=== PATIENT | male | born 1985 | race Caucasian/White ===

== ENCOUNTER 2021-07-16 12:38 | Emergency (ER) | payer OTHER, SELFPAY ==
--- NOTE | ~2021-07-16 | XR_ITS ---
EXAMINATION: XR ANKLE, LEFT CLINICAL INFORMATION: Twisting injury COMPARISON: None TECHNIQUE: AP, lateral, and mortise views of the left ankle. FINDINGS: No acute fracture or dislocation of the left ankle is identified. There is a large amount soft tissue swelling seen about the dorsal lateral aspect of the tarsal bones. Ankle mortise appears intact. XR/XR ankle LT 2V IMPRESSION: Soft tissue swelling without underlying significant bony abnormality of the left ankle.
--- NOTE | ~2021-07-16 | XR_ITS ---
EXAMINATION: XR FOOT, LEFT CLINICAL INFORMATION: Fell on trampoline COMPARISON: None TECHNIQUE: AP, lateral, and oblique views of the left foot. FINDINGS: There is a large amount soft tissue swelling seen about the dorsum of the tarsal bones. No acute fracture or dislocation is evident. Joint spaces are maintained. XR/XR foot LT min 3V IMPRESSION: Large amount of soft tissue swelling without underlying acute fracture appreciated.
[2021-07-16 12:52] VITALS: BP 140/99; PULSE 137; RESP 16; TEMP 37.4; O2SAT 96; BMI 29.0
--- NOTE | 2021-07-16 13:04 | ECG_ITS ---
Test Reason : tachycardia Blood Pressure : / mmHG Vent. Rate : 120 BPM Atrial Rate : 120 BPM P-R Int : 122 ms QRS Dur : 080 ms QT Int : 302 ms P-R-T Axes : 044 -10 017 degrees QTc Int : 426 ms Sinus tachycardia Minimal voltage criteria for LVH, may be normal variant ( R in aVL ) Borderline ECG No previous ECGs available Referred By: Generic ED Physician Electronically Signed By:ROBERT STEVENS MD
--- NOTE | 2021-07-16 14:04 | ED.LOWEXIN ---
HPI - Extremity Injury (Lower) General Chief Complaint: Extremity Injury, Lower <NIKKIE Porter - Last Filed: 07/16/21 14:25> Stated Complaint: l ankle inj <NIKKIE Porter - Last Filed: 07/16/21 14:25> Time Seen by Provider: 07/16/21 13:29 <NIKKIE Porter - Last Filed: 07/16/21 14:25> Source: patient <NIKKIE Porter - Last Filed: 07/16/21 14:25> Mode of arrival: wheelchair <NIKKIE Porter - Last Filed: 07/16/21 14:25> History of Present Illness HPI Narrative: 36-year-old male with no significant past medical history presenting to the emergency department complaining of right ankle/foot pain and swelling s/p twisting injury last night while jumping at [employer] park. Denies injury to other area, head trauma or LOC, numbness, tingling, weakness. Has been ambulatory with pain. 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 Denies being daily drinker. Denies illicit drug use. <NIKKIE Porter - Last Filed: 07/16/21 14:25> MD complaint: ankle injury <NIKKIE Porter Last Filed: 07/16/21 14:25> Onset (ago): day(s) <NIKKIE Porter - Last Filed: 07/16/21 14:25> Related Data Home Medications: Previous Rx's Medication Instructions Recorded acetaminophen 500 mg tablet 500 mg PO Q6H PRN #20 tab 07/16/21 (Tylenol Extra Strength) ibuprofen 800 mg tablet 800 mg PO Q8H PRN #14 tab 07/16/21 <NIKKIE Porter Last Filed: 07/16/21 14:25> Allergies/Adverse Reactions: Allergies Allergy/AdvReac Type Severity Reaction Status Date / Time No Known Allergies Allergy Verified 07/16/21 13:30 <NIKKIE Porter Last Filed: 07/16/21 14:25> Review of Systems Review of Systems: Constitutional: No Fever, No Chills ENT/Mouth: No Ear Pain, No Nasal Congestion, No sore throat, No Rhinorrhea Cardiovascular: No Chest Pain, No SOB Respiratory: No Cough, No Sputum, No Wheezing Gastrointestinal: No Nausea, No Vomiting,No Abdominal pain Genitourinary: No Dysuria, No Urgency, No Flank Pain Musculoskeletal: + joint pain, No Myalgias, + Joint Swelling Skin: No Skin Lesions, No rash Neuro: No Weakness, No Numbness, No Paresthesias <NIKKIE Porter Last Filed: 07/16/21 14:25> Yes all other systems are reviewed and are negative <NIKKIE Porter Last Filed: 07/16/21 14:25> [facility] Past Medical History Attestation statement: The following information was validated with the patient. <NIKKIE Porter Last Filed: 07/16/21 14:25> Social History Social History: Social History Advance Directives: No Advance Directives Information Provided: No <NIKKIE Porter Last Filed: 07/16/21 14:25> Physical Exam Vital Signs: Vital Signs: Last Vital Signs Temp 99.4 F 07/16/21 12:52 Pulse 121 H 07/16/21 14:17 Resp 16 07/16/21 14:17 BP 126/87 07/16/21 14:17 Pulse Ox 95 07/16/21 14:17 BMI result Body Mass Index 29.0 <NIKKIE Porter Last Filed: 07/16/21 14:25> Const: Other: + ETOH odor on breath <NIKKIE Porter Last Filed: 07/16/21 14:25> General: cooperative and healthy appearing <NIKKIE Porter Last Filed: 07/16/21 14:25> Orientation/consciousness: patient oriented x3 <NIKKIE Porter Last Filed: 07/16/21 14:25> Limitations: no limitations <NIKKIE Porter Last Filed: 07/16/21 14:25> HENMT: Head: Yes normal to inspection and Yes atraumatic <NIKKIE Porter Last Filed: 07/16/21 14:25> Ears: hearing grossly normal bilaterally <Jovana Hall PA - Last Filed: 07/16/21 14:25> General nose exam: Normal external nose present <Jovana Hall PA - Last Filed: 07/16/21 14:25> Face and sinus: Yes normal facial exam <Jovana Hall PA - Last Filed: 07/16/21 14:25> Eyes: General: appearance normal, both eyes and all related structures <Jovana Hall PA - Last Filed: 07/16/21 14:25> EOM: EOMs intact bilaterally <Jovana Hall PA - Last Filed: 07/16/21 14:25> Neck: Neck: Yes normal visual inspection and Yes no meningeal signs <Jovana Hall PA - Last Filed: 07/16/21 14:25> Resp: Effort & Inspection: normal respiratory effort and no respiratory distress <Jovana Hall PA - Last Filed: 07/16/21 14:25> Auscultation: clear to auscultation bilaterally <Jovana Hall PA - Last Filed: 07/16/21 14:25> Cardio: Rate: regular rate <Jovana Hall PA - Last Filed: 07/16/21 14:25> Heart sounds: S1 normal heart sound present and S2 normal heart sound present <Jovana Hall PA - Last Filed: 07/16/21 14:25> Peripheral pulses: dorsalis pedis present <Jovana Hall PA - Last Filed: 07/16/21 14:25> Skin: Rashes: no rashes <Jovana Hall PA - Last Filed: 07/16/21 14:25> Wounds: no wounds <Jovana Hall PA - Last Filed: 07/16/21 14:25> Neuro: Other: No tremor/tongue fasciculations <Jovana Hall PA - Last Filed: 07/16/21 14:25> General: patient oriented x3 and no meningeal signs <Jovana Hall PA - Last Filed: 07/16/21 14:25> Gait exam (Neuro): Normal gait present <Jovana Hall PA - Last Filed: 07/16/21 14:25> Extrem: Other: Left ankle/foot with noted swelling and diffuse tenderness to medial and lateral aspect. Decreased dorsiflexion and plantar flexion secondary to pain/swelling. Neurovascularly intact distally. Sensation intact to light touch. Cap refill WNL. No ecchymosis/erythema/warmth <NIKKIE Porter - Last Filed: 07/16/21 14:25> Course Course Course Narrative: XR ankle LT 2V IMPRESSION: Soft tissue swelling without underlying significant bony abnormality of the left ankle. XR foot LT min 3V IMPRESSION: Large amount of soft tissue swelling without underlying acute fracture appreciated. >> patient placed in air cast and supplied with crutches -Patient ambulating with steady gait, clinically sober for discharge <NIKKIE Porter - Last Filed: 07/16/21 14:25> MDM - Extremity Injury (Lower) MDM Narrative Medical decision making narrative: 36-year-old male with no significant past medical history presenting to the emergency department complaining of right ankle/foot pain and swelling s/p twisting injury last night while jumping [place] [employer] [place]. On exam tachycardic likely from pain/ETOH (denies being daily EtOH user, no evidence of withdrawal at this time), NAD, physical exam as above. Concern for ankle sprain/strain vs fracture. Low concern for dislocation. Plan: X-rays <NIKKIE Porter - Last Filed: 07/16/21 14:25> Differential Diagnosis Differential diagnosis: Likely ankle sprain and strain <NIKKIE Porter - Last Filed: 07/16/21 14:25> Medical Records Attestation: I reviewed the patient's medical records. <NIKKIE Porter - Last Filed: 07/16/21 14:25> Lab Data Attestation: I reviewed the patient's lab results. <NIKKIE Porter - Last Filed: 07/16/21 14:25> ECG Data Attestation: I personally reviewed and interpreted this ECG as follows: <NIKKIE Porter Last Filed: 07/16/21 14:25> ECG interpretation date: 07/16/21 <NIKKIE Porter Last Filed: 07/16/21 14:25> ECG interpretation time: 12:25 <NIKKIE Porter - Last Filed: 07/16/21 14:25> Prior ECG tracings: not available for review <NIKKIE Porter - Last Filed: 07/16/21 14:25> Interpretation: EKG sinus tachycardia rate of 120, MI interval 122, QTC 426. No STEMI/nonischemic <NIKKIE Porter - Last Filed: 07/16/21 14:25> Discharge Plan Discharge Clinical Impression: Ankle sprain and strain <NIKKIE Porter - Last Filed: 07/16/21 14:25> Patient Disposition: Home, Self-Care <NIKKIE Porter Last Filed: 07/16/21 14:25> Instructions: Ankle Strain (ED) <NIKKIE Porter - Last Filed: 07/16/21 14:25> Additional Instructions: You sprain her ankle, your x-rays do not show a fracture/break Were as cast at home as needed for comfort instability, you may take off to shower and sleep. Use crutches, bear weight as tolerated Ice, elevate, rest take Tylenol Motrin for pain swelling Follow-up with your doctor <NIKKIE Porter - Last Filed: 07/16/21 14:25> Prescriptions: New ibuprofen 800 mg tablet 800 mg PO Q8H PRN (Reason: pain) Qty: 14 0RF acetaminophen [Tylenol Extra Strength] 500 mg tablet 500 mg PO Q6H PRN (Reason: pain or fever) Qty: 20 0RF <NIKKIE Porter - Last Filed: 07/16/21 14:25> Referrals: Nunu Bobo MD [Primary Care Provider] - 1 week <NIKKIE Porter - Last Filed: 07/16/21 14:25> Stand Alone Forms: Work/School Release <NIKKIE Porter - Last Filed: 07/16/21 14:25> Interventions: ED Discharge Assessment Last Done: 07/16/21 14:22 <NIKKIE Porter - Last Filed: 07/16/21 14:25> Discharge Date/Time: 07/16/21 14:25 <NIKKIE Porter - Last Filed: 07/16/21 14:25>
[2021-07-16] MEDS: Ibuprofen 800 MG TABLET PO (14:15)
[2021-07-16 14:17] VITALS: BP 126/87; PULSE 121; RESP 16; O2SAT 95
== END 2021-07-16 14:25 | disposition home or self-care (01) ==
PROVIDERS: Emergency Provider Emergency Medicine; PCP Internal Medicine
DX: S93.401A Sprain of unspecified ligament of right ankle, initial encounter (principal); S96.911A Strain of unspecified muscle and tendon at ankle and foot level, right foot, initial encounter; X50.1XXA Overexertion from prolonged static or awkward postures, initial encounter; R00.0 Tachycardia, unspecified; Y93.44 Activity, trampolining; Y92.831 Amusement park as the place of occurrence of the external cause; Y99.9 Unspecified external cause status
CPT/HCPCS: 73600; 73630; 93005; 99283; 99284

== ENCOUNTER 2021-10-02 12:01 | Outpatient (REF) | payer OTHER, SELFPAY ==
--- NOTE | ~2021-10-02 | XR_ITS ---
EXAMINATION: XR HUMERUS, LEFT CLINICAL INFORMATION: Pain in the left arm. COMPARISON: None TECHNIQUE: AP and lateral views of the left humerus. FINDINGS: The bones and soft tissues are normal. No fracture. Imaged portions of the shoulder and elbow are unremarkable. XR/XR humerus LT IMPRESSION: Normal left humerus.
[2021-10-02 13:18] LABS: MANUAL DIFF FLAG NO
[2021-10-02 13:31] LABS: Basophils Absolute Auto 0.1 X10*3/uL (0.0-0.2); Basophils Percent Auto 0.8 % (0-2); Eosinophils Absolute Auto 0.1 X10*3/uL (0.0-0.4); Eosinophils Percent Auto 1.4 % (0-4); Hemoglobin 16.7 g/dl (14.0-18.0); Imm Gran Abs Auto 0.05 X10*3/uL (0.00-0.03); Imm Gran Pct Auto 0.8 % (0.0-0.4); Lymphocytes Absolute Auto 1.4 X10*3/uL (1.2-4.9); Lymphocytes Percent Auto 22.7 % (20-40); Mean Corpuscular HGB Conc 34.8 g/dl (31.0-36.0); Mean Corpuscular Hemoglobin 32.9 pg (27.0-33.0); Mean Corpuscular Volume 94.5 fL (80.0-98.0); Monocytes Absolute Auto 0.6 X10*3/uL (0.1-1.2); Monocytes Percent Auto 9.5 % (2-11); Neutrophils Percent Auto 64.8 % (45-73); Platelet Count 204 X10*3/uL (160-400); Red Blood Count 5.08 X10*6/uL (4.60-5.80); Red Cell Distribution Width 11.6 % (11.0-16.0); White Blood Count 6.2 X10*3/uL (4.8-10.8)
[2021-10-02 14:00] LABS: Alanine Aminotransferase 136 U/L (0-40); Albumin Level 4.4 g/dL (3.5-5.0); Alkaline Phosphatase 124 U/L (39-117); Anion Gap 19 (12-20); Aspartate Amino Transferase 285 U/L (5-37); Bilirubin Total 0.8 mg/dL (0.0-1.0); Blood Urea Nitrogen 8 mg/dL (9-16); Calcium 9.6 mg/dL (8.4-10.2); Carbon Dioxide 24 mmol/L (22-29); Chloride 99 mmol/L (96-108); Cholesterol 352 mg/dL; Estimated Glomerular Filt Rate > 60; Glucose Random 105 mg/dL (60-115); HDL Cholesterol 57 mg/dL; LDL Cholesterol Calculated 232 mg/dl; Lipase 45 U/L (8-78); Potassium 3.6 mmol/L (3.3-5.1); Sodium 138 mmol/L (135-145); Total Protein 7.7 g/dL (6.5-8.0); Triglycerides 319 mg/dL
[2021-10-02 14:15] LABS: Thyroid Stimulating Hormone 2.24 uIU/mL (0.32-4.0)
== END 2021-10-02 12:02 | disposition home or self-care (01) ==
LOC: HO.LAB 12:01
PROVIDERS: PCP Internal Medicine; Referring Provider Internal Medicine; Visit Provider Physician Assistant
DX: Z00.00 Encounter for general adult medical examination without abnormal findings (principal); K52.9 Noninfective gastroenteritis and colitis, unspecified; K21.9 Gastro-esophageal reflux disease without esophagitis; R11.2 Nausea with vomiting, unspecified; F10.10 Alcohol abuse, uncomplicated; K59.09 Other constipation; E78.5 Hyperlipidemia, unspecified; M79.602 Pain in left arm; F41.1 Generalized anxiety disorder; E66.9 Obesity, unspecified; Z68.31 Body mass index [BMI] 31.0-31.9, adult
CPT/HCPCS: 36415; 73060; 80053; 80061; 83690; 84443; 85025; 99202

== ENCOUNTER → 2021-11-03 13:34 | Outpatient (BNVA) | payer OTHER, SELFPAY | PROVIDERS: PCP Internal Medicine; Visit Provider Internal Medicine | DX: Z51.81 Encounter for therapeutic drug level monitoring (principal); F11.20 Opioid dependence, uncomplicated; F10.10 Alcohol abuse, uncomplicated | CPT/HCPCS: 80305; 99202 ==

== ENCOUNTER 2021-11-03 17:14 | Outpatient (REF) | payer OTHER, SELFPAY ==
[2021-11-03 17:54] LABS: Fentanyl, urine Not Detected (Not Detect)
== END 2021-11-03 17:15 | disposition home or self-care (01) ==
LOC: HO.LNP 17:14
PROVIDERS: Visit Provider Internal Medicine
DX: F11.20 Opioid dependence, uncomplicated (principal); F10.10 Alcohol abuse, uncomplicated; Z79.899 Other long term (current) drug therapy
CPT/HCPCS: 80307

== ENCOUNTER 2021-11-10 14:32 | Outpatient (REF) | payer OTHER, SELFPAY ==
[2021-11-16 07:58] LABS: Codeine, Ur NEGATIVE; Hydrocodone, Ur NEGATIVE
[2021-11-16 07:59] LABS: Alphahydroxymidazolam,GCMS Ur NEGATIVE; Alphahydroxytriazolam, GCMS Ur NEGATIVE; Hydromorphone, Ur NEGATIVE; Lorazepam GCMS Urine NEGATIVE; Morphine, Ur NEGATIVE; Temazepam, GCMS Urine NEGATIVE
[2021-11-16 08:00] LABS: Alprazolam, GCMS Urine NEGATIVE; Aminoclonazepam, GCMS Urine NEGATIVE; Nordiazepam, GCMS Urine NEGATIVE; Norhydrocodone, Ur NEGATIVE; Oxazepam, GCMS Urine NEGATIVE
[2021-11-16 08:01] LABS: Flurazepam Metabolite,GCMS Ur NEGATIVE
== END 2021-11-10 14:33 | disposition home or self-care (01) ==
LOC: HO.LNP 14:32
PROVIDERS: Visit Provider Internal Medicine
DX: F11.20 Opioid dependence, uncomplicated (principal); Z79.899 Other long term (current) drug therapy
CPT/HCPCS: 80305; 80346; 80364; 80365; 99212

== ENCOUNTER → 2021-11-18 14:00 | Outpatient (BNVA) | payer OTHER, SELFPAY | PROVIDERS: PCP Internal Medicine; Visit Provider Internal Medicine | DX: Z51.81 Encounter for therapeutic drug level monitoring (principal); F11.20 Opioid dependence, uncomplicated | CPT/HCPCS: 80305; 99212 ==

== ENCOUNTER → 2021-12-02 12:50 | Outpatient (BNVA) | payer OTHER, SELFPAY | PROVIDERS: PCP Internal Medicine; Visit Provider Internal Medicine | DX: F11.20 Opioid dependence, uncomplicated (principal) | CPT/HCPCS: 80305; 99212 ==

== ENCOUNTER → 2021-12-16 12:44 | Outpatient (BNVA) | payer OTHER, SELFPAY | PROVIDERS: PCP Internal Medicine; Visit Provider Internal Medicine | DX: F11.20 Opioid dependence, uncomplicated (principal) | CPT/HCPCS: 80305; 99212 ==

== ENCOUNTER 2021-12-30 13:21 | Outpatient (REF) | payer OTHER, SELFPAY ==
[2021-12-30 17:14] LABS: Fentanyl, urine Not Detected (Not Detect)
== END 2021-12-30 13:22 | disposition home or self-care (01) ==
LOC: HO.LNP 13:21
PROVIDERS: PCP Internal Medicine; Visit Provider Internal Medicine
DX: F11.20 Opioid dependence, uncomplicated (principal); Z79.899 Other long term (current) drug therapy
CPT/HCPCS: 80305; 80307; 99212

== ENCOUNTER → 2022-01-27 13:12 | Outpatient (BNVA) | payer OTHER, SELFPAY | PROVIDERS: PCP Internal Medicine; Visit Provider Internal Medicine | DX: F11.20 Opioid dependence, uncomplicated (principal) | CPT/HCPCS: 99212 ==

== ENCOUNTER → 2022-02-24 11:51 | Outpatient (BNVA) | payer OTHER, SELFPAY | PROVIDERS: PCP Internal Medicine; Visit Provider Internal Medicine | DX: Z51.81 Encounter for therapeutic drug level monitoring (principal); F11.20 Opioid dependence, uncomplicated | CPT/HCPCS: 99212 ==

== ENCOUNTER → 2022-03-10 11:05 | Outpatient (BNVA) | payer OTHER, SELFPAY | PROVIDERS: PCP Internal Medicine; Visit Provider Internal Medicine | DX: F11.20 Opioid dependence, uncomplicated (principal) | CPT/HCPCS: 99212 ==

== ENCOUNTER 2022-03-24 17:18 | Outpatient (REF) | payer OTHER, SELFPAY ==
[2022-03-24 17:39] LABS: Fentanyl, urine Not Detected (Not Detect)
== END 2022-03-24 17:19 | disposition home or self-care (01) ==
LOC: HO.LNP 17:18
PROVIDERS: Visit Provider Internal Medicine
DX: F11.20 Opioid dependence, uncomplicated (principal); Z51.81 Encounter for therapeutic drug level monitoring; Z79.01 Long term (current) use of anticoagulants
CPT/HCPCS: 80307; 99212

== ENCOUNTER → 2022-04-14 10:59 | Outpatient (BNVA) | payer OTHER, SELFPAY | PROVIDERS: PCP Internal Medicine; Visit Provider Internal Medicine | DX: F11.20 Opioid dependence, uncomplicated (principal) | CPT/HCPCS: 99212 ==

== ENCOUNTER 2022-05-12 16:58 | Outpatient (REF) | payer OTHER, SELFPAY ==
[2022-05-12 17:27] LABS: Fentanyl, urine Not Detected (Not Detect)
== END 2022-05-12 16:59 | disposition home or self-care (01) ==
LOC: HO.LNP 16:58
PROVIDERS: Visit Provider Internal Medicine
DX: F11.20 Opioid dependence, uncomplicated (principal); Z51.81 Encounter for therapeutic drug level monitoring; Z79.899 Other long term (current) drug therapy
CPT/HCPCS: 80307; 99212

== ENCOUNTER → 2022-06-02 16:15 | Outpatient (BNVA) | payer OTHER, SELFPAY | PROVIDERS: PCP Internal Medicine; Visit Provider Nurse Practitioner Psychiatric/Mental Health | DX: F11.20 Opioid dependence, uncomplicated (principal); F10.10 Alcohol abuse, uncomplicated | CPT/HCPCS: 80305; 99212 ==

== ENCOUNTER 2022-12-29 11:45 | Outpatient (AMB) | payer OTHER, SELFPAY ==
[2022-12-29 11:51] VITALS: BP 130/108; PULSE 123; O2SAT 98; BMI 32.7
--- NOTE | 2022-12-29 11:51 | MHC.PC.OV ---
Vital Signs 12/29/22 11:51 12/29/22 12:31 Height 5 ft 7 in Weight 209 lb BMI 32.7 BP 130/108 H 140/100 H Blood Pressure Location Lt brachial Lt brachial Position Sitting Sitting Pulse 123 H 110 H Pulse Source Pulse Oximeter Palpation Temp Source Skin Pulse Oximetry (%) 98 Oxygen Delivery Method Room Air Intake Visit Reasons: Paper work Intake Note: pt is here for disability extension Allergies No Known Allergies Allergy (Verified 12/29/22 12:16) Medication List - Last Reconciled 12/29/22 by NGUYEN Julian escitalopram oxalate 5 mg PO DAILY 90 days gabapentin 400 mg PO TID omeprazole 20 mg PO DAILY 90 days Tobacco use date assessed: 12/29/22 HPI Paper work HPI Details Patient is a 37-year-old male presents today for welch assistance DTA paperwork. Patient of Dr. Chavez - last visit 08/2021. Medical history significant for obesity, GERD, depression, anxiety, insomnia, history of alcohol abuse and opioid use disorder. Patient reports that he was in [facility] 09/20/2022-10/30/2022 due to compartment syndrome of right forearm - patient reports that he did have 8 surgeries on his right arm, he is followed with Dr. Mccray at [facility] next visit 02/2023. In the hospital, patient also was on amlodipine for his blood pressure, patient was able to bring partial discharge paperwork. Patient reports that he is currently in home PT 2 times per week for his right arm. He reports no feeling in his right forearm. 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 He is trying to apply for welch assistance, has paperwork. He denies shortness of breath or chest pain. [facility] Medical History Abdominal pain Chronic GERD Class 1 obesity with body mass index (BMI) of 31.0 to 31.9 in adult RISHABH (generalized anxiety disorder) Insomnia Left arm pain Moderate recurrent major depression Opioid use disorder Physical exam Surgical History History of ankle surgery Family History Father No problems noted. Mother Anxiety and depression Mental health disorder Social History Housing: Apartment Alcohol intake: current Alcohol intake frequency: a few times a week Alcohol type: beer and hard liquor Patient Tobacco Use Status: Former Tobacco user Tobacco use type: Cigarette e-Cigarette/Vaping Use: Never Used Second Hand Smoke Exposure: No service: No Current occupational status: unemployed Cognitive needs: No Hearing needs: No Vision needs: No Questionnaire PHQ-9 Over the last 2 weeks, how often have you been bothered by any of the following problems? 1. Little interest or pleasure in doing things: not at all 2. Feeling down, depressed, or hopeless: not at all 3. Trouble falling or staying asleep, or sleeping too much: not at all 4. Feeling tired or having little energy: not at all 5. Poor appetite or overeating: not at all 6. Feeling bad about yourself - or that you are a failure or have let yourself or your family down: not at all 7. Trouble concentrating on things, such as reading the newspaper or watching television: not at all 8. Moving or speaking so slowly that other people could have noticed. Or the opposite - being so fidgety or restless that you have been moving around a lot more than usual: not at all 9. Thoughts that you would be better off or of hurting yourself in some way: not at all Total score: 0 Depression Screening Interpretation: Negative 99756 - PHQ-9 Billing: Yes Source: Developed by Drs. Luiz Darby, Maria D Kate, Robbie Thakkar and colleagues, with an educational karel from [employer]. Thrive Questionnaire Date Thrive assessed: 09/17/21 AUDIT C Alcohol Use Questionnaire (AUDIT-C) 1. How often do you have a drink containing alcohol?: 2-3 times a week 2. How many drinks containing alcohol do you have on a typical day when you are drinking?: 3 or 4 3. How often do you have six or more drinks on one occasion?: Never Total Score: 4 Score Reviewed/Action Taken: Yes RISHABH-7 AMB Questionnaire RISHABH-7 Date RISHABH - 7 assessed: 12/29/22 Feeling nervous, anxious, or on edge: 0 = Not at all Not being able to stop or control worryin = Not at all Worrying too much about different things: 0 = Not at all Trouble relaxin = Not at all Being so restless that it is hard to sit still: 0 = Not at all Becoming easily annoyed or irritable: 0 = Not at all Feeling afraid as if something awful might happen: 0 = Not at all Total RISHABH-7 score (0-4 normal; 5-9 mild; 10-14 moderate; 15-21 severe): 0 Source: Developed by Drs. Luiz Darby, Maria D Kate, Robbie Thakkar and colleagues, with an educational karel from [employer]. RISHABH-7 Assessment Billing RISHABH-7 Assessment Tool: RISHABH-7 Assessment 61833 Review of Systems Const Denies body aches, Denies chills, Denies fever(s) and Denies headache(s) Eyes Denies change in vision ENT Denies dizziness, Denies otalgia, Denies headache(s), Denies nasal discharge, Denies sinus pain and Denies sore throat Card Denies chest pain, Denies edema, Denies lightheadedness and Denies dyspnea Resp Denies cough and Denies dyspnea GI Denies abdominal pain Denies dysuria Musc Details: Right arm pain Reports as per HPI and Denies myalgias Skin/Breast Denies rash Neuro Denies dizziness and Denies headache(s) Physical exam (Primary Care) Vital Signs: Last Vital Signs Pulse 123 H 12/29/22 11:51 BP 140/100 H 12/29/22 12:31 Pulse Ox 98 12/29/22 11:51 Oxygen Delivery Method Room Air 12/29/22 11:51 BMI result Body Mass Index 32.7 Tobacco/Smoking Status: Tobacco use Status Tobacco use date assessed 12/29/22 12/29/22 11:55 Patient Tobacco Use Status Former Tobacco user 12/29/22 11:55 Tobacco use type Cigarette 12/29/22 11:55 e-Cigarette/Vaping Use Never Used 12/29/22 11:55 PHQ-9: PHQ-9 Score PHQ-9: Total score 0 12/29/22 12:23 Depression Screening Interpretation: Negative Thrive Assessment: Date of Thrive Assessment Date Thrive assessed 09/17/21 12/29/22 11:55 Const General: cooperative and no acute distress Orientation/consciousness: patient oriented x3 HENMT Head: Yes normocephalic and Yes atraumatic Mouth: oropharynx normal and moist mucous membranes Throat: Yes posterior oropharynx normal Eyes General: appearance normal, both eyes and all related structures Pupils: Equal, round and reactive pupils present EOM: EOMs intact bilaterally Neck Neck: Yes normal visual inspection and Yes full ROM Resp Effort & Inspection: normal respiratory effort and able to speak in complete sentences Auscultation: clear to auscultation bilaterally, no crackles, no rales, no rhonchi and no wheezes Cardio Rate: regular rate Rhythm: regular rhythm Heart sounds: S1 normal heart sound present, S2 normal heart sound present and no murmurs GI Auscultation: normal bowel sounds Skin General skin exam: no rashes or lesions noted Neuro General: patient oriented x3 Cranial nerves: Yes Equal, round and reactive pupils present Gait exam (Neuro): Normal gait present Extrem Other: Right arm with multiple intact scars noted, patient reports numbness in for arm, slightly able to move right fingers, mild swelling noted, patient wears sling Assessment and Plan Assessment & Plan (1) Hypertension: Code(s): I10 - Essential (primary) hypertension Plan: Goal BP equal or less than 140/90 Patient was on amlodipine at [facility], will send prescription for amlodipine 5 mg daily Patient was encouraged to monitor blood pressures at home Low-sodium diet and weight loss (2) Compartment syndrome of forearm: Comment: Right forearm Code(s): T79.A19A - Traumatic compartment syndrome of unspecified upper extremity, initial encounter Plan: Continue to follow-up with Dr. Mccray at [facility] (3) GERD (gastroesophageal reflux disease): Code(s): K21.9 - Gastro-esophageal reflux disease without esophagitis Plan: Refill sent on omeprazole 20 mg daily Avoid GERD trigger foods Do not lay down 2-3 hours after evening meal (4) RISHABH (generalized anxiety disorder): Comment: Anxious- Code(s): F41.1 - Generalized anxiety disorder Plan: Refill sent on escitalopram 5 mg daily (5) Insomnia: Code(s): G47.00 - Insomnia, unspecified Plan: Reinforced sleep hygiene Start hydroxyzine 25 mg at bedtime p.r.n.-patient was on hydroxyzine in the hospital-educated about drowsiness Plan Follow-up with PCP in 3 months or sooner as needed Welch assistants paperwork filled out, see scanned Requested medical records from [facility] discharge summary Medications: New amlodipine 5 mg PO DAILY 30 tabs 2RF I10 - Essential (primary) hypertension hydroxyzine HCl 25 mg PO BEDTIME PRN 14 tabs 0RF insomnia G47.00 - Insomnia, unspecified Refilled escitalopram oxalate 5 mg PO DAILY 90 days 90 tabs 1RF omeprazole 20 mg PO DAILY 90 days 90 caps 1RF K21.9 - Gastro-esophageal reflux disease without esophagitis Coding Level of Care Code Est Pt Level 4 (11463) Diagnoses Hypertension I10 Compartment syndrome of forearm T79.A19A GERD (gastroesophageal reflux disease) K21.9 RISHABH (generalized anxiety disorder) F41.1 Insomnia G47.00 Additional Codes RISHABH-7 Assessment Billing - RISHABH-7 Assessment Tool: RISHABH-7 Assessment 47974 ([id number])
[2022-12-29 12:31] VITALS: BP 140/100; PULSE 110
== END 2022-12-29 15:01 | disposition home or self-care (01) ==
PROVIDERS: PCP Internal Medicine; Visit Provider Nurse Practitioner Family
DX: I10 Essential (primary) hypertension (principal); T79.A19A Traumatic compartment syndrome of unspecified upper extremity, initial encounter; K21.9 Gastro-esophageal reflux disease without esophagitis; F41.1 Generalized anxiety disorder; G47.00 Insomnia, unspecified
CPT/HCPCS: 99214

== ENCOUNTER 2023-04-05 14:01 | Outpatient (AMB) | payer OTHER, SELFPAY ==
--- NOTE | 2023-04-05 14:02 | A.OFFVIS_ITS ---
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 Previously seen by He reports that in September he had multiple surgeries for compartment syndrome Reports it was due to sleeping on his arm Started drinking again due to being home so much--unable to work 2x/week PT for arm , will start court ordered therapy Patient presenting as pressured and anxious. Identifying several social stressors Current substance use: -drank 8 nips Wednesday and 2 drinks -denies any withdrawal sx at this time -Wednesday percocet 30mg --2-3x/week Anxiety most pertinent withdrawal sx Would like to restart suboxone PFSH Medical History Abdominal pain Chronic GERD Class 1 obesity with body mass index (BMI) of 31.0 to 31.9 in adult RISHABH (generalized anxiety disorder) Insomnia Left arm pain Moderate recurrent major depression Opioid use disorder Physical exam Surgical History History of ankle surgery Family History Father No problems noted. Mother Anxiety and depression Mental health disorder Social History Housing: Apartment Alcohol intake: current Alcohol intake frequency: a few times a week Alcohol type: beer and hard liquor Patient Tobacco Use Status: Former Tobacco user Tobacco use type: Cigarette e-Cigarette/Vaping Use: Never Used Second Hand Smoke Exposure: No service: No Current occupational status: unemployed Cognitive needs: No Hearing needs: No Vision needs: No Physical Exam Vital Signs: Last Vital Signs Pulse 98 04/05/23 14:08 BP 134/74 04/05/23 14:08 Pulse Ox 95 04/05/23 14:08 Oxygen Delivery Method Room Air 04/05/23 14:08 Results AMB 14 Panel Urine Drug Screen Urine Marijuana (THC) Positive Last Edit by Lexie Fuentes CMA on 04/05/23 14:15 Urine Cocaine Positive Last Edit by Lexie Fuentes CMA on 04/05/23 14:15 Urine Morphine Negative Last Edit by Lexie Fuentes CMA on 04/05/23 14:15 Urine Methamphetamine Negative Last Edit by Lexie Fuentes CMA on 04/05/23 14:15 Urine Amphetamine Negative Last Edit by Lexie Fuentes CMA on 04/05/23 14:1 5 Urine Benzodiazepine Negative Last Edit by Lexie Fuentes CMA on 04/05/23 14:15 Urine Barbiturates Negative Last Edit by Lexie Fuentes CMA on 04/05/23 14: 15 Urine Methadone Negative Last Edit by Lexie Fuentes CMA on 04/05/23 14:15 Urine Buprenorphine Negative Last Edit by Lexie Fuentes CMA on 04/05/23 14 :15 Urine Tricyclic Antidepressant Negative Last Edit by Lexie Fuentes CMA on 04/05/23 14:15 Urine MDMA Negative Last Edit by Lexie Fuentes CMA on 04/05/23 14:15 Urine Oxycodone Negative Last Edit by Lexie Fuentes CMA on 04/05/23 14:15 Urine Phencyclidine Negative Last Edit by Lexie Fuentes CMA on 04/05/23 14 :15 Urine Propoxyphene Negative Last Edit by Lexie Fuentes CMA on 04/05/23 14: 15 Results Reviewed Results Reviewed: Laboratory Last Values POC Urine Buprenorphine Negative 04/05/23 14:10 POC Urine Morphine Negative 04/05/23 14:10 POC Urine Oxycodone Negative 04/05/23 14:10 POC Urine Methadone Negative 04/05/23 14:10 POC Urine Propoxyphene Negative 04/05/23 14:10 POC Urine Barbiturates Negative 04/05/23 14:10 POC U Tricyclic Antidpr Negative 04/05/23 14:10 POC Urine PCP Negative 04/05/23 14:10 POC Ur Amphetamines Negative 04/05/23 14:10 POC Ur Methamphetamine Negative 04/05/23 14:10 POC Urine MDMA Negative 04/05/23 14:10 POC Ur Benzodiazepine Negative 04/05/23 14:10 POC Urine Cocaine Positive 04/05/23 14:10 POC Ur Marijuana (THC) Positive 04/05/23 14:10 Assessment & Plan Assessment & Plan (1) Opioid use disorder: Code(s): F11.90 - Opioid use, unspecified, uncomplicated Plan: * plan to restart suboxone. Reviewed induction process * provided narcan and education (2) Alcohol use disorder, moderate, dependence: Code(s): F10.20 - Alcohol dependence, uncomplicated Plan: * agreeable to campral * reviewed dosing, goals of treatment * follow up one week Orders: Orders AMB 14 Panel Urine Drug Screen 04/05/23 Z51.81 - Encounter for therapeutic drug level monitoring Medications: New hydroxyzine HCl 25 mg PO TID PRN 90 tabs 0RF anxiety buprenorphine-naloxone 8-2 mg (Suboxone) 1 film sublingual BID 15 ea 0RF acamprosate 666 mg (2 x 333 mg) PO TID 180 tabs 0RF Coding Level of Care Code Est Pt Level 4 (47708) Diagnoses Opioid use disorder F11.90 Alcohol use disorder, moderate, dependence F10.20
[2023-04-05 14:08] VITALS: BP 134/74; PULSE 98; O2SAT 95
== END 2023-04-05 14:39 | disposition home or self-care (01) ==
PROVIDERS: PCP Internal Medicine; Visit Provider Nurse Practitioner Psychiatric/Mental Health
DX: F11.90 Opioid use, unspecified, uncomplicated (principal); F10.20 Alcohol dependence, uncomplicated
CPT/HCPCS: 99214

== ENCOUNTER → 2023-04-05 14:01 | Outpatient (BNVA) | payer OTHER, SELFPAY | PROVIDERS: PCP Internal Medicine; Visit Provider Nurse Practitioner Psychiatric/Mental Health | DX: Z51.81 Encounter for therapeutic drug level monitoring (principal); F11.20 Opioid dependence, uncomplicated; F10.20 Alcohol dependence, uncomplicated | CPT/HCPCS: 80305; 99212 ==

== ENCOUNTER 2023-04-23 13:13 | Outpatient (AMB) | payer OTHER, SELFPAY ==
[2023-04-23 14:41] VITALS: BP 140/78; PULSE 66; O2SAT 98
--- NOTE | 2023-04-23 14:41 | A.OFFVIS_ITS ---
Intake Vital Signs 04/23/23 14:41 BP 140/78 H Blood Pressure Location Lt brachial Position Sitting Pulse 66 Pulse Source Pulse Oximeter Pulse Oximetry (%) 98 Oxygen Delivery Method Room Air Intake Visit Reasons: MAT Visit/Walk in Allergies No Known Allergies Allergy (Verified 04/05/23 14:03) HPI MAT Visit/Walk in HPI Details Pty presents as a walk in for OUD treatment and follow up. Missed last 2 appointments due to transportation difficulties. Requesting appointments later in the week to give him time to arrange his rides with [facility]. Has been working on connecting with a psych provider through [facility]. Has had 3 intakes and will be seeing his provider/therapist once weekly. Reports good effect from the hydroxyzine, has experienced a decrease in anxiety. Has been trying to keep busy to fend off cravings. Took his son trick or treating. Ran out of strips one day ago, took 1 15 mg green pressed pill because he felt withdrawal symptoms. Denies currently feeling withdrawal symptoms. Encouraged to call [facility] if he runs out of medications, so that a plan can be made with him. Has continued to abstain from ETOH. Is going to physical therapy for his right arm 2x weekly. [facility] Medical History Abdominal pain Chronic GERD Class 1 obesity with body mass index (BMI) of 31.0 to 31.9 in adult RISHABH (generalized anxiety disorder) Insomnia Left arm pain Moderate recurrent major depression Opioid use disorder Physical exam Surgical History History of ankle surgery Family History Father No problems noted. Mother Anxiety and depression Mental health disorder Social History Housing: Apartment Alcohol intake: current Alcohol intake frequency: a few times a week Alcohol type: beer and hard liquor Patient Tobacco Use Status: Former Tobacco user Tobacco use type: Cigarette e-Cigarette/Vaping Use: Never Used Second Hand Smoke Exposure: No service: No Current occupational status: unemployed Cognitive needs: No Hearing needs: No Vision needs: No Review of Systems Const Reports as per HPI Physical Exam Vital Signs: Last Vital Signs Pulse 66 04/23/23 14:41 BP 140/78 H 04/23/23 14:41 Pulse Ox 98 04/23/23 14:41 Oxygen Delivery Method Room Air 04/23/23 14:41 Const General: cooperative and no acute distress Resp Effort & Inspection: normal respiratory effort Psych Appearance: grossly normal Mental Status: mental status grossly normal Speech and movement: Normal speech and movement present Affect: normal affect Attitude: cooperative Thought content: Normal thought content present Assessment & Plan Assessment & Plan (1) Opioid use disorder: Code(s): F11.90 - Opioid use, unspecified, uncomplicated Plan: Continue suboxone at current dose. Discussed recovery support- gave information about job coach/job developer, pt to think about it. plan reviewed with FARAZ Hoover (2) Alcohol use disorder, moderate, dependence: Code(s): F10.20 - Alcohol dependence, uncomplicated Plan: Continue campral. Follow up 1 week. Medications: Refilled buprenorphine-naloxone 8-2 mg (Suboxone) 1 film sublingual BID 20 ea 0RF Coding Level of Care Code Est Pt Level 3 (13488) Diagnoses Opioid use disorder F11.90 Alcohol use disorder, moderate, dependence F10.20
== END 2023-04-23 13:56 | disposition home or self-care (01) ==
PROVIDERS: PCP Internal Medicine; Visit Provider Nurse Practitioner Psychiatric/Mental Health
DX: F11.90 Opioid use, unspecified, uncomplicated (principal); F10.20 Alcohol dependence, uncomplicated
CPT/HCPCS: 99213

== ENCOUNTER → 2023-04-23 13:13 | Outpatient (BNVA) | payer OTHER, SELFPAY | PROVIDERS: PCP Internal Medicine; Visit Provider Nurse Practitioner Family | DX: F11.20 Opioid dependence, uncomplicated (principal); F10.20 Alcohol dependence, uncomplicated | CPT/HCPCS: 99212 ==

== ENCOUNTER 2023-05-03 11:15 | Outpatient (AMB) | payer OTHER, SELFPAY ==
--- NOTE | 2023-05-03 11:20 | A.OFFVIS_ITS ---
Intake Intake Visit Reasons: MAT Visit Intake Note: the patient presents for a mat visit Gambling Dealer Required: No Allergies No Known Allergies Allergy (Verified 05/03/23 11:20) HPI MAT Visit HPI Details Patient presents for ALEE treatment follow up Currently prescribed Suboxone 8mg BID--taking them both at once Will be starting ?PHP in the near future or a therapist, patient somewhat circular in conversation Considering d/c Campral Has drank twice in the last 2 weeks (5 -6 nips each time)--guarded when asked about ongoing ETOH and plan to d/c campral I guess I don't want to talk about that yet [facility] Medical History Abdominal pain Chronic GERD Class 1 obesity with body mass index (BMI) of 31.0 to 31.9 in adult RISHABH (generalized anxiety disorder) Insomnia Left arm pain Moderate recurrent major depression Opioid use disorder Physical exam Surgical History History of ankle surgery Family History Father No problems noted. Mother Anxiety and depression Mental health disorder Social History Housing: Apartment Alcohol intake: current Alcohol intake frequency: a few times a week Alcohol type: beer and hard liquor Patient Tobacco Use Status: Former Tobacco user Tobacco use type: Cigarette e-Cigarette/Vaping Use: Never Used Second Hand Smoke Exposure: No service: No Current occupational status: unemployed Cognitive needs: No Hearing needs: No Vision needs: No Review of Systems Const Reports as per HPI Physical Exam Const General: cooperative, healthy appearing and well groomed Orientation/consciousness: patient oriented x3 Limitations: physical limitations (right arm limited motion and sensation ) Neuro General: patient oriented x3 Assessment & Plan Assessment & Plan (1) Opioid use disorder: Code(s): F11.90 - Opioid use, unspecified, uncomplicated Plan: * continue suboxone at current dose * followup 10 days (2) Alcohol use disorder, moderate, dependence: Code(s): F10.20 - Alcohol dependence, uncomplicated Plan: * continue campral * risk reduction discussion Medications: Refilled hydroxyzine HCl 25 mg PO TID PRN 90 tabs 2RF anxiety buprenorphine-naloxone 8-2 mg (Suboxone) 1 film sublingual BID 20 ea 0RF Coding Level of Care Code Est Pt Level 4 (00256) Diagnoses Opioid use disorder F11.90 Alcohol use disorder, moderate, dependence F10.20
== END 2023-05-03 11:39 | disposition home or self-care (01) ==
PROVIDERS: PCP Internal Medicine; Visit Provider Nurse Practitioner Psychiatric/Mental Health
DX: F11.90 Opioid use, unspecified, uncomplicated (principal); F10.20 Alcohol dependence, uncomplicated
CPT/HCPCS: 99214

== ENCOUNTER → 2023-05-03 11:15 | Outpatient (BNVA) | payer OTHER, SELFPAY | PROVIDERS: PCP Internal Medicine; Visit Provider Nurse Practitioner Family | DX: F11.20 Opioid dependence, uncomplicated (principal); F10.20 Alcohol dependence, uncomplicated | CPT/HCPCS: 99212 ==

== ENCOUNTER 2023-05-12 10:29 | Outpatient (AMB) | payer OTHER, SELFPAY ==
[2023-05-12 10:36] VITALS: BP 120/78; PULSE 95; O2SAT 98
--- NOTE | 2023-05-12 10:36 | MHC.OFFVIS ---
Intake Vital Signs 05/12/23 10:36 BP 120/78 Blood Pressure Location Lt radial Position Sitting Pulse 95 Pulse Source Pulse Oximeter Pulse Oximetry (%) 98 Oxygen Delivery Method Room Air Intake Visit Reasons: mat visit Intake Note: the patient presents for a mat visit Phlebotomy Director Required: No Allergies No Known Allergies Allergy (Verified 05/21/23 11:27) Do you need a note to return to daycare/school/sports/work: No HPI mat visit HPI Details Pt presents for ALEE treatment and follow up Reports he has not taken any percocets since t/w last saw him Reports he has had no alcohol in the past 10 days, reports he started drinking for a few days but stopped as it was making his stomach upset just like it used to before Says that his family is doing a small gathering tomorrow for Thanksgiving and that he will likely stay in his room for most of it. Says he does not get along with some of his family members. [facility] Medical History Abdominal pain Chronic GERD Class 1 obesity with body mass index (BMI) of 31.0 to 31.9 in adult RISHABH (generalized anxiety disorder) Insomnia Left arm pain Moderate recurrent major depression Opioid use disorder Physical exam Surgical History History of ankle surgery Family History Father No problems noted. Mother Anxiety and depression Mental health disorder Social History Housing: Apartment Alcohol intake: current Alcohol intake frequency: a few times a week Alcohol type: beer and hard liquor Patient Tobacco Use Status: Former Tobacco user Tobacco use type: Cigarette e-Cigarette/Vaping Use: Never Used Second Hand Smoke Exposure: No service: No Current occupational status: unemployed Cognitive needs: No Hearing needs: No Vision needs: No Review of Systems Const Reports as per HPI Physical Exam Vital Signs: Last Vital Signs Pulse 95 05/12/23 10:36 BP 120/78 05/12/23 10:36 Pulse Ox 98 05/12/23 10:36 Oxygen Delivery Method Room Air 05/12/23 10:36 Const General: cooperative and alert Resp Effort & Inspection: normal respiratory effort Psych Appearance: grossly normal Mental Status: mental status grossly normal Speech and movement: Pressured speech present Affect: normal affect Assessment & Plan Assessment & Plan (1) Opioid use disorder: Code(s): F11.90 - Opioid use, unspecified, uncomplicated Plan: Continue suboxone at current dose Follow-up 9 days (2) Alcohol use disorder, moderate, dependence: Code(s): F10.20 - Alcohol dependence, uncomplicated Plan: Continue campral Risk reduction discussed Relapse prevention discussed Medications: Refilled buprenorphine-naloxone 8-2 mg (Suboxone) 1 film sublingual BID 18 ea 0RF Coding Level of Care Code Est Pt Level 3 (42228) Diagnoses Opioid use disorder F11.90 Alcohol use disorder, moderate, dependence F10.20
== END 2023-05-12 10:58 | disposition home or self-care (01) ==
PROVIDERS: PCP Internal Medicine; Visit Provider Nurse Practitioner Family
DX: F11.90 Opioid use, unspecified, uncomplicated (principal); F10.20 Alcohol dependence, uncomplicated
CPT/HCPCS: 99214

== ENCOUNTER → 2023-05-12 10:29 | Outpatient (BNVA) | payer OTHER, SELFPAY | PROVIDERS: PCP Internal Medicine; Visit Provider Nurse Practitioner Family | DX: F11.20 Opioid dependence, uncomplicated (principal); F10.20 Alcohol dependence, uncomplicated | CPT/HCPCS: 99212 ==

== ENCOUNTER 2023-05-21 11:06 | Outpatient (AMB) | payer OTHER, SELFPAY ==
[2023-05-21 11:25] VITALS: BP 124/76; PULSE 74; O2SAT 96
--- NOTE | 2023-05-21 11:25 | MHC.AM.SUB ---
Intake Vital Signs 05/21/23 11:25 BP 124/76 Blood Pressure Location Lt radial Position Sitting Pulse 74 Pulse Source Pulse Oximeter Pulse Oximetry (%) 96 Oxygen Delivery Method Room Air Intake Visit Reasons: mat visit Intake Note: The patient presents for a mat visit Poultry Raiser Required: No Allergies No Known Allergies Allergy (Verified 05/21/23 11:27) Do you need a note to return to daycare/school/sports/work: No HPI mat visit HPI Details Pt presents for ALEE treatment and follow up Reports his week has been ok , said he had a quiet Thanksgiving. Has not utilized any substances or ETOH since his last visit He reflected about how package stores are on every corner Began therapy with his therapist on this past Wednesday, in person. States he will be seeing her weekly Alina Desir with [facility] Has no concerns today about medications or side effects. Tolerating suboxone dose 8mg BID. ON LICENSE OF [facility] Medical History Abdominal pain Chronic GERD Class 1 obesity with body mass index (BMI) of 31.0 to 31.9 in adult RISHABH (generalized anxiety disorder) Insomnia Left arm pain Moderate recurrent major depression Opioid use disorder Physical exam Surgical History History of ankle surgery Family History Father No problems noted. Mother Anxiety and depression Mental health disorder Social History Housing: Apartment Alcohol intake: current Alcohol intake frequency: a few times a week Alcohol type: beer and hard liquor Patient Tobacco Use Status: Former Tobacco user Tobacco use type: Cigarette e-Cigarette/Vaping Use: Never Used Second Hand Smoke Exposure: No service: No Current occupational status: unemployed Cognitive needs: No Hearing needs: No Vision needs: No Review of Systems Const Reports as per HPI Physical Exam Vital Signs: Last Vital Signs Pulse 74 05/21/23 11:25 BP 124/76 05/21/23 11:25 Pulse Ox 96 05/21/23 11:25 Oxygen Delivery Method Room Air 05/21/23 11:25 Const General: cooperative and no acute distress Nutritional Appearance: average body habitus Resp Effort & Inspection: normal respiratory effort Psych Appearance: grossly normal and disheveled Mental Status: mental status grossly normal Speech and movement: Normal speech and movement present Affect: Animated affect present Attitude: cooperative Assessment & Plan Assessment & Plan (1) Alcohol use disorder, moderate, dependence: Code(s): F10.20 - Alcohol dependence, uncomplicated Plan: Continue acamprosate. Relapse prevention discussed. (2) Opioid use disorder: Code(s): F11.90 - Opioid use, unspecified, uncomplicated Plan: Continue suboxone at current dose Follow up in 2 weeks Orders: Orders Complete Blood Count Auto Diff 06/18/23 F10.20 - Alcohol dependence, uncomplicated Comprehensive Met. Panel 06/18/23 F10.20 - Alcohol dependence, uncomplicated Medications: Refilled buprenorphine-naloxone 8-2 mg (Suboxone) 1 film sublingual BID 30 ea 0RF Coding Level of Care Code Est Pt Level 3 (51890) Diagnoses Alcohol use disorder, moderate, dependence F10.20 Opioid use disorder F11.90
== END 2023-05-21 11:45 | disposition home or self-care (01) ==
PROVIDERS: PCP Internal Medicine; Visit Provider Nurse Practitioner Family
DX: F10.20 Alcohol dependence, uncomplicated (principal); F11.90 Opioid use, unspecified, uncomplicated
CPT/HCPCS: 99214

== ENCOUNTER → 2023-05-21 11:06 | Outpatient (BNVA) | payer OTHER, SELFPAY | PROVIDERS: PCP Internal Medicine; Visit Provider Nurse Practitioner Family | DX: F10.20 Alcohol dependence, uncomplicated (principal); F11.20 Opioid dependence, uncomplicated | CPT/HCPCS: 99212 ==

== ENCOUNTER 2023-06-04 10:32 | Outpatient (AMB) | payer OTHER, SELFPAY ==
--- NOTE | 2023-06-04 10:34 | A.OFFVIS_ITS ---
Intake Vital Signs 06/04/23 10:38 BP 124/70 Blood Pressure Location Lt radial Position Sitting Pulse 114 H Pulse Source Pulse Oximeter Pulse Oximetry (%) 96 Oxygen Delivery Method Room Air Comment had monster drink 30 minutes prior Intake Visit Reasons: mat visit Intake Note: the patient presents for a mat visit Retail Analyst Required: No Allergies No Known Allergies Allergy (Verified 06/04/23 10:39) HPI mat visit HPI Details Patient presents for ALEE treatment follow up Reports 5 weeks with no alcohol or opiates Continues to engage in therapy --very focused on recovery, showing insight and motivation [facility] Medical History Abdominal pain Chronic GERD Class 1 obesity with body mass index (BMI) of 31.0 to 31.9 in adult RISHABH (generalized anxiety disorder) Insomnia Left arm pain Moderate recurrent major depression Opioid use disorder Physical exam Surgical History History of ankle surgery Family History Father No problems noted. Mother Anxiety and depression Mental health disorder Social History Housing: Apartment Alcohol intake: current Alcohol intake frequency: a few times a week Alcohol type: beer and hard liquor Patient Tobacco Use Status: Former Tobacco user Tobacco use type: Cigarette e-Cigarette/Vaping Use: Never Used Second Hand Smoke Exposure: No service: No Current occupational status: unemployed Cognitive needs: No Hearing needs: No Vision needs: No Review of Systems Const Reports as per HPI and Reports no additional complaints Physical Exam Vital Signs: Last Vital Signs Pulse 114 H 06/04/23 10:38 BP 124/70 06/04/23 10:38 Pulse Ox 96 06/04/23 10:38 Oxygen Delivery Method Room Air 06/04/23 10:38 Const General: cooperative and no acute distress Nutritional Appearance: average body habitus Resp Effort & Inspection: normal respiratory effort Psych Appearance: grossly normal Mental Status: mental status grossly normal Speech and movement: Normal speech and movement present Attitude: cooperative Assessment & Plan Assessment & Plan (1) Alcohol use disorder, moderate, dependence: Code(s): F10.20 - Alcohol dependence, uncomplicated Plan: * relapse prevention discussion (2) Opioid use disorder: Code(s): F11.90 - Opioid use, unspecified, uncomplicated Plan: * continue suboxone at current dose * follow up 2 weeks Medications: Refilled buprenorphine-naloxone 8-2 mg (Suboxone) 1 film sublingual BID 30 ea 0RF Coding Level of Care Code Est Pt Level 3 (00761) Diagnoses Alcohol use disorder, moderate, dependence F10.20 Opioid use disorder F11.90
[2023-06-04 10:38] VITALS: BP 124/70; PULSE 114; O2SAT 96
== END 2023-06-04 11:19 | disposition home or self-care (01) ==
PROVIDERS: PCP Internal Medicine; Visit Provider Nurse Practitioner Psychiatric/Mental Health
DX: F10.20 Alcohol dependence, uncomplicated (principal); F11.90 Opioid use, unspecified, uncomplicated
CPT/HCPCS: 99213

== ENCOUNTER → 2023-06-04 10:32 | Outpatient (BNVA) | payer OTHER, SELFPAY | PROVIDERS: PCP Internal Medicine; Visit Provider Nurse Practitioner Psychiatric/Mental Health | DX: F10.20 Alcohol dependence, uncomplicated (principal); F11.20 Opioid dependence, uncomplicated | CPT/HCPCS: 99212 ==

== ENCOUNTER 2023-07-01 10:23 | Outpatient (AMB) | payer OTHER, SELFPAY ==
--- NOTE | 2023-07-01 10:28 | A.OFFVISCC_ITS ---
Intake Vital Signs 07/01/23 10:35 BP 110/70 Blood Pressure Location Lt radial Position Sitting Pulse 90 Pulse Source Pulse Oximeter Pulse Oximetry (%) 95 Oxygen Delivery Method Room Air Intake Visit Reasons: MAT Visit Intake Note: the patient presents for a mat visit Regulatory Affairs Portfolio Leader Required: No Allergies No Known Allergies Allergy (Verified 07/01/23 10:35) Medication List - Last Reconciled 07/01/23 by Maru Chau, HOMAR acamprosate 666 mg (2 x 333 mg) PO TID buprenorphine-naloxone 8-2 mg (Suboxone) 1 film sublingual BID escitalopram oxalate 5 mg PO DAILY 90 days hydroxyzine HCl 25 mg PO TID PRN omeprazole 20 mg PO DAILY 90 days Do you need a note to return to daycare/school/sports/work: No HPI MAT Visit HPI Details Patient presents for ALEE treatment follow up Reports that he continues to abstain from alcohol and opiates Still engaged in therapy every week Reporting depressive sx, ruminating, increased irritability. Agreeable to Increase Escitalopram dose from 5mg to 10mg. [facility] Medical History Abdominal pain Chronic GERD Class 1 obesity with body mass index (BMI) of 31.0 to 31.9 in adult RISHABH (generalized anxiety disorder) Insomnia Left arm pain Moderate recurrent major depression Opioid use disorder Physical exam Surgical History History of ankle surgery Family History Father No problems noted. Mother Anxiety and depression Mental health disorder Social History Housing: Apartment Alcohol intake: current Alcohol intake frequency: a few times a week Alcohol type: beer and hard liquor Patient Tobacco Use Status: Former Tobacco user Tobacco use type: Cigarette e-Cigarette/Vaping Use: Never Used Second Hand Smoke Exposure: No service: No Current occupational status: unemployed Cognitive needs: No Hearing needs: No Vision needs: No Review of Systems Const Reports as per HPI and Reports difficulty sleeping Psych Reports anxiety and Reports difficulty concentrating Physical Exam Vital Signs: Last Vital Signs Pulse 90 07/01/23 10:35 BP 110/70 07/01/23 10:35 Pulse Ox 95 07/01/23 10:35 Oxygen Delivery Method Room Air 07/01/23 10:35 Const General: cooperative and no acute distress Nutritional Appearance: average body habitus Resp Effort & Inspection: normal respiratory effort Psych Appearance: grossly normal Mental Status: mental status grossly normal Speech and movement: Normal speech and movement present Attitude: cooperative Assessment & Plan Assessment & Plan (1) Alcohol use disorder, moderate, dependence: Code(s): F10.20 - Alcohol dependence, uncomplicated Plan: * relapse prevention discussion * increase lexapro to 10mg (2) Opioid use disorder: Code(s): F11.90 - Opioid use, unspecified, uncomplicated Plan: * continue suboxone at current dose * follow up 2 weeks Medications: Refilled acamprosate 666 mg (2 x 333 mg) PO TID 180 tabs 0RF buprenorphine-naloxone 8-2 mg (Suboxone) 1 film sublingual BID 42 ea 0RF Coding Level of Care Code Est Pt Level 4 (87095) Diagnoses Alcohol use disorder, moderate, dependence F10.20 Opioid use disorder F11.90
[2023-07-01 10:35] VITALS: BP 110/70; PULSE 90; O2SAT 95
== END 2023-07-01 11:05 | disposition home or self-care (01) ==
PROVIDERS: PCP Internal Medicine; Visit Provider Nurse Practitioner Psychiatric/Mental Health
DX: F10.20 Alcohol dependence, uncomplicated (principal); F11.90 Opioid use, unspecified, uncomplicated
CPT/HCPCS: 99214

== ENCOUNTER → 2023-07-01 10:23 | Outpatient (BNVA) | payer OTHER, SELFPAY | PROVIDERS: PCP Internal Medicine; Visit Provider Nurse Practitioner Psychiatric/Mental Health | DX: F10.20 Alcohol dependence, uncomplicated (principal); F11.20 Opioid dependence, uncomplicated | CPT/HCPCS: 99212 ==

== ENCOUNTER 2023-07-08 15:59 | Emergency (ER) | payer OTHER, SELFPAY ==
--- NOTE | ~2023-07-08 | XR_ITS ---
EXAMINATION: XR RIBS, LEFT CLINICAL INFORMATION: Reason for Exam trauma COMPARISON: None TECHNIQUE: 3 views of the Left ribs. 1 view of the chest. FINDINGS: No displaced rib fracture. Clear lungs. No pneumothorax. No pleural effusion. Normal cardiomediastinal silhouette. XR/XR ribs LT min 3V w CXR1V IMPRESSION: No displaced rib fracture. Please note that rib radiographs have low sensitivity for detection of rib fractures and if continued clinical concern CT chest is advised.
[2023-07-08 16:03] VITALS: BP 151/96; PULSE 118; RESP 20; TEMP 36.6; O2SAT 97; BMI 29.5
--- NOTE | 2023-07-08 16:05 | ED_ITS ---
HPI - General Adult General Chief complaint: Dyspnea Stated complaint: punctured lung? Related Data Previous Rx's ?Medication ?Instructions ?Recorded escitalopram oxalate 5 mg tablet 5 mg PO DAILY 90 days #90 tabs 07/07/23 hydroxyzine HCl 25 mg tablet 25 mg PO TID PRN for anxiety #270 09/27/23 tabs omeprazole 20 mg capsule,delayed 20 mg PO DAILY 90 days #90 caps 10/07/23 release acamprosate 333 mg tablet,delayed 666 mg (2 x 333 mg) PO TID #540 10/21/23 release tabs buprenorphine 8 mg-naloxone 2 mg 1 film sublingual BID #28 ea 10/22/23 sublingual film (Suboxone) Allergies Allergy/AdvReac Type Severity Reaction Status Date / Time No Known Allergies Allergy Verified 10/07/23 10:54 REPLACED BY [facility] Past Medical History Onset Date is defined in the Problem List Problems that require an onset date and time if occurred within 24 hrs of arrival to the ED Aortic Dissection and Rupture; Neurologic impairment; Cardiopulmonary Arrest; Endotracheal Intubation; Insertion or Replacement of Mechanical Circulatory Assist Device Medical History Abdominal pain Chronic GERD Class 1 obesity with body mass index (BMI) of 31.0 to 31.9 in adult RISHABH (generalized anxiety disorder) Insomnia Left arm pain Moderate recurrent major depression Opioid use disorder Physical exam Surgical History History of ankle surgery Family History Family History Father No problems noted. Mother Anxiety and depression Mental health disorder Social History Social History Housing: Apartment Alcohol intake: current Alcohol intake frequency: a few times a week Alcohol type: beer and hard liquor Patient Tobacco Use Status: Former Tobacco user Tobacco use type: Cigarette e-Cigarette/Vaping Use: Never Used Second Hand Smoke Exposure: No service: No Current occupational status: unemployed Cognitive needs: No Hearing needs: No Vision needs: No Physical Exam ED Vital Signs: BMI result Body Mass Index 29.5 Course Course Course Narrative: RME- 38 year old male presents for evaluation of left sided chest pain after falling on the ice last night. Increased pain with movement, coughing, sneezing. Plan for x-ray of ribs and chest Discharge Plan Discharge Clinical Impression: Chest pain Patient Disposition: Left W/O Completing Treatment Prescriptions: No Action escitalopram oxalate 5 mg tablet 5 mg PO DAILY 90 Days Qty: 90 1RF hydroxyzine HCl 25 mg tablet 25 mg PO TID PRN (Reason: for anxiety) Qty: 270 0RF acamprosate 333 mg tablet,delayed release (DR/EC) 666 mg PO TID Qty: 540 1RF omeprazole 20 mg capsule,delayed release(DR/EC) 20 mg PO DAILY 90 Days Qty: 90 2RF buprenorphine-naloxone [Suboxone] 8-2 mg film 1 film sublingual BID Qty: 28 0RF Discharge Date/Time: 07/08/23 20:27
== END 2023-07-08 20:27 | disposition left against medical advice (07) ==
PROVIDERS: Emergency Provider Emergency Medicine; PCP Internal Medicine
DX: R07.81 Pleurodynia (principal); Z79.899 Other long term (current) drug therapy
CPT/HCPCS: 71101; 99281; 99283

== ENCOUNTER 2023-07-21 13:57 | Outpatient (AMB) | payer OTHER, SELFPAY ==
--- NOTE | 2023-07-21 13:58 | A.OFFVISCC_ITS ---
Intake Vital Signs 07/21/23 14:04 BP 140/96 H Blood Pressure Location Lt radial Position Sitting Pulse 102 H Pulse Source Pulse Oximeter Pulse Oximetry (%) 96 Oxygen Delivery Method Room Air Intake Visit Reasons: mat visit Intake Note: The patient presents for a mat visit Evs Attendant Required: No Allergies No Known Allergies Allergy (Verified 07/21/23 14:05) Do you need a note to return to daycare/school/sports/work: No HPI mat visit HPI Details Patients presents for OUD and AUD treatment follow up Recently fractured ribs after falling on the ice Reports that he has not found that lexapro increase has been beneficial--no difference Reports family history of depression Discussed lack structure and how this contributes to depression reviewed options to get out of the house Reports he was taking extra suboxone due to pain Discussed cutting medication into pieces and taking it throughout the day Also encouraged to call office prior to taking more medication than prescribed [facility] Medical History Abdominal pain Chronic GERD Class 1 obesity with body mass index (BMI) of 31.0 to 31.9 in adult RISHABH (generalized anxiety disorder) Insomnia Left arm pain Moderate recurrent major depression Opioid use disorder Physical exam Surgical History History of ankle surgery Family History Father No problems noted. Mother Anxiety and depression Mental health disorder Social History Housing: Apartment Alcohol intake: current Alcohol intake frequency: a few times a week Alcohol type: beer and hard liquor Patient Tobacco Use Status: Former Tobacco user Tobacco use type: Cigarette e-Cigarette/Vaping Use: Never Used Second Hand Smoke Exposure: No service: No Current occupational status: unemployed Cognitive needs: No Hearing needs: No Vision needs: No Review of Systems Const Reports as per HPI Physical Exam Vital Signs: Last Vital Signs Pulse 102 H 07/21/23 14:04 BP 140/96 H 07/21/23 14:04 Pulse Ox 96 07/21/23 14:04 Oxygen Delivery Method Room Air 07/21/23 14:04 Const General: cooperative and no acute distress Nutritional Appearance: average body habitus Resp Effort & Inspection: normal respiratory effort Psych Appearance: grossly normal Mental Status: mental status grossly normal Speech and movement: Normal speech and movement present Attitude: cooperative Assessment & Plan Assessment & Plan (1) Alcohol use disorder, moderate, dependence: Code(s): F10.20 - Alcohol dependence, uncomplicated Plan: * relapse prevention discussion * Continue lexapro * will work on getting out of house (2) Opioid use disorder: Code(s): F11.90 - Opioid use, unspecified, uncomplicated Plan: * continue suboxone at current dose * follow up 2 weeks Medications: Refilled omeprazole 20 mg PO DAILY 90 days 90 caps 1RF K21.9 - Gastro-esophageal reflux disease without esophagitis Coding Level of Care Code Est Pt Level 4 (31153) Diagnoses Alcohol use disorder, moderate, dependence F10.20 Opioid use disorder F11.90
[2023-07-21 14:04] VITALS: BP 140/96; PULSE 102; O2SAT 96
== END 2023-07-21 14:54 | disposition home or self-care (01) ==
PROVIDERS: PCP Internal Medicine; Visit Provider Nurse Practitioner Psychiatric/Mental Health
DX: F10.20 Alcohol dependence, uncomplicated (principal); F11.90 Opioid use, unspecified, uncomplicated
CPT/HCPCS: 99214

== ENCOUNTER → 2023-07-21 13:57 | Outpatient (BNVA) | payer OTHER, SELFPAY | PROVIDERS: PCP Internal Medicine; Visit Provider Nurse Practitioner Psychiatric/Mental Health | DX: F10.20 Alcohol dependence, uncomplicated (principal); F11.20 Opioid dependence, uncomplicated | CPT/HCPCS: 99212 ==

== ENCOUNTER 2023-08-11 12:55 | Outpatient (AMB) | payer OTHER, SELFPAY ==
--- NOTE | 2023-08-11 12:59 | A.OFFVISCC_ITS ---
Intake Intake Visit Reasons: MAT Visit Allergies No Known Allergies Allergy (Verified 07/21/23 14:05) PFSH Medical History Abdominal pain Chronic GERD Class 1 obesity with body mass index (BMI) of 31.0 to 31.9 in adult RISHABH (generalized anxiety disorder) Insomnia Left arm pain Moderate recurrent major depression Opioid use disorder Physical exam Surgical History History of ankle surgery Family History Father No problems noted. Mother Anxiety and depression Mental health disorder Social History Housing: Apartment Alcohol intake: current Alcohol intake frequency: a few times a week Alcohol type: beer and hard liquor Patient Tobacco Use Status: Former Tobacco user Tobacco use type: Cigarette e-Cigarette/Vaping Use: Never Used Second Hand Smoke Exposure: No service: No Current occupational status: unemployed Cognitive needs: No Hearing needs: No Vision needs: No Coding
--- NOTE | 2023-08-11 12:59 | A.OFFVISCC_ITS ---
Intake Vital Signs 08/11/23 13:08 BP 140/86 H Blood Pressure Location Lt radial Position Sitting Pulse 88 Pulse Source Pulse Oximeter Pulse Oximetry (%) 96 Oxygen Delivery Method Room Air Intake Visit Reasons: MAT Visit Intake Note: the patient presents for a mat visit [employer] Required: No Allergies No Known Allergies Allergy (Verified 08/11/23 13:09) Do you need a note to return to daycare/school/sports/work: No HPI MAT Visit HPI Details Patient presents for ALEE treatment follow up Currently prescribed Suboxone 8mg BID and Campral Had evaluation (for SS) recently feels that it went well Has been looking into volunteering --contacted [employer] as a way to occupy his time Discussed -UDS results --has been out of suboxone for 3 days Used cocaine 2 days ago Rib pain has improved COUNT INCLUDES [facility] Medical History Abdominal pain Chronic GERD Class 1 obesity with body mass index (BMI) of 31.0 to 31.9 in adult RISHABH (generalized anxiety disorder) Insomnia Left arm pain Moderate recurrent major depression Opioid use disorder Physical exam Surgical History History of ankle surgery Family History Father No problems noted. Mother Anxiety and depression Mental health disorder Social History Housing: Apartment Alcohol intake: current Alcohol intake frequency: a few times a week Alcohol type: beer and hard liquor Patient Tobacco Use Status: Former Tobacco user Tobacco use type: Cigarette e-Cigarette/Vaping Use: Never Used Second Hand Smoke Exposure: No service: No Current occupational status: unemployed Cognitive needs: No Hearing needs: No Vision needs: No Review of Systems Const Reports as per HPI and Reports no additional complaints Physical Exam Vital Signs: Last Vital Signs Pulse 88 08/11/23 13:08 BP 140/86 H 08/11/23 13:08 Pulse Ox 96 08/11/23 13:08 Oxygen Delivery Method Room Air 08/11/23 13:08 Const General: cooperative and no acute distress Nutritional Appearance: average body habitus Resp Effort & Inspection: normal respiratory effort Psych Appearance: grossly normal Mental Status: mental status grossly normal Speech and movement: Normal speech and movement present Attitude: cooperative Results AMB 14 Panel Urine Drug Screen Urine Marijuana (THC) Positive Last Edit by Lexie Fuentes CMA on 08/11/23 13:11 Urine Cocaine Positive Last Edit by Lexie Fuentes CMA on 08/11/23 13:11 Urine Morphine Negative Last Edit by Lexie Fuentes CMA on 08/11/23 13:11 Urine Methamphetamine Negative Last Edit by Lexie Fuentes CMA on 08/11/23 13:11 Urine Amphetamine Negative Last Edit by Lexie Fuentes CMA on 08/11/23 13:1 1 Urine Benzodiazepine Negative Last Edit by Lexie Fuentes CMA on 08/11/23 13:11 Urine Barbiturates Negative Last Edit by Lexie Fuentes CMA on 08/11/23 13: 11 Urine Methadone Negative Last Edit by Lexie Fuentes CMA on 08/11/23 13:11 Urine Buprenorphine Negative Last Edit by Lexie Fuentes CMA on 08/11/23 13 :11 Urine Tricyclic Antidepressant Negative Last Edit by Lexie Fuentes CMA on 08/11/23 13:11 Urine MDMA Negative Last Edit by Lexie Fuentes CMA on 08/11/23 13:11 Urine Oxycodone Negative Last Edit by Lexie Fuentes CMA on 08/11/23 13:11 Urine Phencyclidine Negative Last Edit by Lexie Fuentes CMA on 08/11/23 13 :11 Urine Propoxyphene Negative Last Edit by Lexie Fuentes CMA on 08/11/23 13: 11 Results Reviewed Results Reviewed: Laboratory Last Values POC Urine Buprenorphine Negative 08/11/23 13:09 POC Urine Morphine Negative 08/11/23 13:09 POC Urine Oxycodone Negative 08/11/23 13:09 POC Urine Methadone Negative 08/11/23 13:09 POC Urine Propoxyphene Negative 08/11/23 13:09 POC Urine Barbiturates Negative 08/11/23 13:09 POC U Tricyclic Antidpr Negative 08/11/23 13:09 POC Urine PCP Negative 08/11/23 13:09 POC Ur Amphetamines Negative 08/11/23 13:09 POC Ur Methamphetamine Negative 08/11/23 13:09 POC Urine MDMA Negative 08/11/23 13:09 POC Ur Benzodiazepine Negative 08/11/23 13:09 POC Urine Cocaine Positive 08/11/23 13:09 POC Ur Marijuana (THC) Positive 08/11/23 13:09 Assessment & Plan Assessment & Plan (1) Alcohol use disorder, moderate, dependence: Code(s): F10.20 - Alcohol dependence, uncomplicated Plan: * relapse prevention discussion * Continue lexapro (2) Opioid use disorder: Code(s): F11.90 - Opioid use, unspecified, uncomplicated Plan: * continue suboxone at current dose * follow up 3 weeks Orders: Orders AMB 14 Panel Urine Drug Screen Today Z51.81 - Encounter for therapeutic drug level monitoring Buprenorphine Today F11.90 - Opioid use, unspecified, uncomplicated Medications: Refilled buprenorphine-naloxone 8-2 mg (Suboxone) 1 film sublingual BID 42 ea 0RF Coding Level of Care Code Est Pt Level 3 (65926) Diagnoses Alcohol use disorder, moderate, dependence F10.20 Opioid use disorder F11.90
[2023-08-11 13:08] VITALS: BP 140/86; PULSE 88; O2SAT 96
== END 2023-08-11 13:33 | disposition home or self-care (01) ==
PROVIDERS: PCP Internal Medicine; Visit Provider Nurse Practitioner Psychiatric/Mental Health
DX: F10.20 Alcohol dependence, uncomplicated (principal); F11.90 Opioid use, unspecified, uncomplicated; Z51.81 Encounter for therapeutic drug level monitoring
CPT/HCPCS: 99213

== ENCOUNTER 2023-08-11 12:55 | Outpatient (REF) | payer OTHER, SELFPAY ==
[2023-08-16 08:44] LABS: Buprenorphine NEGATIVE
[2023-08-16 08:45] LABS: Naloxone NEGATIVE; Norbuprenorphine NEGATIVE
== END 2023-08-11 12:56 | disposition home or self-care (01) ==
LOC: HO.LAB 12:55
PROVIDERS: PCP Internal Medicine; Visit Provider Nurse Practitioner Psychiatric/Mental Health
DX: F11.20 Opioid dependence, uncomplicated (principal); F10.20 Alcohol dependence, uncomplicated
CPT/HCPCS: 80305; 80348; 80362; 99212

== ENCOUNTER 2023-09-23 10:23 | Outpatient (AMB) | payer OTHER, SELFPAY ==
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
[2023-09-23 10:35] VITALS: BP 138/86; PULSE 125; O2SAT 95
== END 2023-09-23 11:07 | disposition home or self-care (01) ==
PROVIDERS: PCP Internal Medicine; Visit Provider Nurse Practitioner Family
DX: F10.20 Alcohol dependence, uncomplicated (principal); F11.90 Opioid use, unspecified, uncomplicated; K21.9 Gastro-esophageal reflux disease without esophagitis; Z51.81 Encounter for therapeutic drug level monitoring
CPT/HCPCS: 99214

== ENCOUNTER → 2023-09-23 10:23 | Outpatient (BNVA) | payer OTHER, SELFPAY | PROVIDERS: PCP Internal Medicine; Visit Provider Nurse Practitioner Family | DX: K21.9 Gastro-esophageal reflux disease without esophagitis (principal); F10.20 Alcohol dependence, uncomplicated; F11.20 Opioid dependence, uncomplicated; F10.10 Alcohol abuse, uncomplicated | CPT/HCPCS: 80305; 99212 ==

== ENCOUNTER 2023-10-07 10:55 | Outpatient (AMB) | payer OTHER, SELFPAY ==
--- NOTE | 2023-10-07 10:54 | MHC.AM.SUB ---
Vital Signs 10/07/23 10:59 BP 140/90 H Blood Pressure Location Lt brachial Position Sitting Pulse 80 Pulse Source Pulse Oximeter Pulse Oximetry (%) 94 Oxygen Delivery Method Room Air Intake Visit Reasons: MAT Allergies No Known Allergies Allergy (Verified 10/07/23 10:54) HPI HPI MAT: Details: Patient presents for MAT visit Tolerating 8mg suboxone BID STates the last 2 weeks have gone really well for him He has been taking the acamprosate regularly, feels it has been helpful States he has been getting out more often and keeping busy now that the weather is improving Sees a therapist once weekly through [facility] which he feels has been beneficial Has no recovery concerns at time Asking for omeprazole refill HPI Comments Details: Patient presents for MAT visit [facility] Medical History Abdominal pain Chronic GERD Class 1 obesity with body mass index (BMI) of 31.0 to 31.9 in adult RISHABH (generalized anxiety disorder) Insomnia Left arm pain Moderate recurrent major depression Opioid use disorder Physical exam Surgical History History of ankle surgery Family History Father No problems noted. Mother Anxiety and depression Mental health disorder Social History Housing: Apartment Alcohol intake: current Alcohol intake frequency: a few times a week Alcohol type: beer and hard liquor Patient Tobacco Use Status: Former Tobacco user Tobacco use type: Cigarette e-Cigarette/Vaping Use: Never Used Second Hand Smoke Exposure: No service: No Current occupational status: unemployed Cognitive needs: No Hearing needs: No Vision needs: No Review of Systems Const Reports as per HPI Physical Exam Vital Signs: Last Vital Signs Pulse 80 10/07/23 10:59 BP 140/90 H 10/07/23 10:59 Pulse Ox 94 10/07/23 10:59 Oxygen Delivery Method Room Air 10/07/23 10:59 Const General: cooperative and no acute distress Resp Effort & Inspection: normal respiratory effort and able to speak in complete sentences Psych Appearance: grossly normal Mental Status: mental status grossly normal Speech and movement: Pressured speech present Affect: Animated affect present Attitude: cooperative Thought process: Normal thought process present Assessment & Plan Assessment & Plan (1) Alcohol use disorder, moderate, dependence: Code(s): F10.20 - Alcohol dependence, uncomplicated Category: Medical Plan: -Continue acamprosate- no refill needed that this time (2) GERD (gastroesophageal reflux disease): Code(s): K21.9 - Gastro-esophageal reflux disease without esophagitis Category: Medical Qualifiers: Esophagitis presence: esophagitis presence not specified Qualified Code(s): K21.9 - Gastro-esophageal reflux disease without esophagitis Plan: -Omeprazole refilled -GI referral still pending (3) Opioid use disorder: Code(s): F11.90 - Opioid use, unspecified, uncomplicated Category: Medical Plan: -Mass pat reviewed -Refill for suboxone 8mg bid sent to pt pharmacy -Follow up 2 weeks Medications: Refilled omeprazole 20 mg PO DAILY 90 caps 2RF 90 days K21.9 - Gastro-esophageal reflux disease without esophagitis buprenorphine-naloxone 8-2 mg (Suboxone) 1 film sublingual BID 28 ea 0RF
[2023-10-07 10:59] VITALS: BP 140/90; PULSE 80; O2SAT 94
== END 2023-10-07 11:22 | disposition home or self-care (01) ==
PROVIDERS: PCP Internal Medicine; Visit Provider Nurse Practitioner Family
DX: F10.20 Alcohol dependence, uncomplicated (principal); K21.9 Gastro-esophageal reflux disease without esophagitis; F11.90 Opioid use, unspecified, uncomplicated
CPT/HCPCS: 99213

== ENCOUNTER → 2023-10-07 10:55 | Outpatient (BNVA) | payer OTHER, SELFPAY | PROVIDERS: PCP Internal Medicine; Visit Provider Nurse Practitioner Family | DX: F11.20 Opioid dependence, uncomplicated (principal); F10.20 Alcohol dependence, uncomplicated; Z79.899 Other long term (current) drug therapy; Z51.81 Encounter for therapeutic drug level monitoring; K21.9 Gastro-esophageal reflux disease without esophagitis | CPT/HCPCS: 99212 ==

== ENCOUNTER 2023-11-11 09:56 | Outpatient (AMB) | payer OTHER, SELFPAY ==
--- NOTE | 2023-11-11 09:56 | MHC.AM.SUB ---
Vital Signs 11/11/23 09:58 BP 132/84 Blood Pressure Location Lt brachial Position Sitting Pulse 123 H Pulse Source Pulse Oximeter Pulse Oximetry (%) 97 Oxygen Delivery Method Room Air Intake Visit Reasons: MAT visit Allergies No Known Allergies Allergy (Verified 10/07/23 10:54) HPI HPI MAT visit: Details: Patient presents for MAT visit Taking suboxone 8mg BID, has been out of meds for nearly a week, states he has been taking his girlfriend's suboxone films. Reminded by t/w to call office if he is going to run out of films for a refill. Reports he spent last week with nausea and vomiting, states his g/f and mother were also sick Has no recovery concerns Has PCP appt in December [facility] Comments Details: Patient presents for [facility] Medical History Abdominal pain Chronic GERD Class 1 obesity with body mass index (BMI) of 31.0 to 31.9 in adult RISHABH (generalized anxiety disorder) Insomnia Left arm pain Moderate recurrent major depression Opioid use disorder Physical exam Surgical History History of ankle surgery Family History Father No problems noted. Mother Anxiety and depression Mental health disorder Social History Housing: Apartment Alcohol intake: current Alcohol intake frequency: a few times a week Alcohol type: beer and hard liquor Patient Tobacco Use Status: Former Tobacco user Tobacco use type: Cigarette e-Cigarette/Vaping Use: Never Used Second Hand Smoke Exposure: No service: No Current occupational status: unemployed Cognitive needs: No Hearing needs: No Vision needs: No Review of Systems Const Reports as per HPI Physical Exam Vital Signs: Last Vital Signs Pulse 123 H 11/11/23 09:58 BP 132/84 11/11/23 09:58 Pulse Ox 97 11/11/23 09:58 Oxygen Delivery Method Room Air 11/11/23 09:58 Const General: cooperative and no acute distress Resp Effort & Inspection: normal respiratory effort and able to speak in complete sentences Psych Appearance: grossly normal Mental Status: mental status grossly normal Speech and movement: Normal speech and movement present Affect: normal affect Attitude: cooperative Thought process: Normal thought process present Assessment & Plan Assessment & Plan (1) Alcohol use disorder, moderate, dependence: Code(s): F10.20 - Alcohol dependence, uncomplicated Category: Medical Plan: -Mass pat reviewed -Suboxone rx refilled -Probiotics ordered for pt -Follow up 2 weeks Medications: New mv-mn-B.coag-B.subtilis-inulin 1 billion cell- 1 gram (Culturelle Probiotic-Multivit) 1 tab PO DAILY 30 tabs 0RF trazodone 100 mg (2 x 50 mg) PO BEDTIME PRN 60 tabs 0RF sleep Refilled buprenorphine-naloxone 8-2 mg (Suboxone) 1 film sublingual BID 60 ea 0RF
[2023-11-11 09:58] VITALS: BP 132/84; PULSE 123; O2SAT 97
== END 2023-11-11 10:34 | disposition home or self-care (01) ==
PROVIDERS: PCP Internal Medicine; Visit Provider Nurse Practitioner Family
DX: F10.20 Alcohol dependence, uncomplicated (principal)
CPT/HCPCS: 99213

== ENCOUNTER → 2023-11-11 09:56 | Outpatient (BNVA) | payer OTHER, SELFPAY | PROVIDERS: PCP Internal Medicine; Visit Provider Nurse Practitioner Family | DX: F11.20 Opioid dependence, uncomplicated (principal) | CPT/HCPCS: 99212 ==

== ENCOUNTER 2023-12-01 16:15 | Outpatient (AMB) | payer OTHER, SELFPAY ==
[2023-12-01 16:25] VITALS: BP 120/72; BMI 30.9
--- NOTE | 2023-12-01 16:25 | A.OFFPC_ITS ---
Vital Signs 12/01/23 16:25 Height 5 ft 9 in Weight 209 lb BMI 30.9 BP 120/72 Blood Pressure Location Lt brachial Position Sitting Intake Visit Reasons: follow up Intake Note: Patient here for a follow up right arm, abdominal/digestive issues Podiatric Surgeon Required: No Accompanied by: Self / Same As Patient Allergies No Known Allergies Allergy (Verified 12/01/23 16:37) Medication List - Last Reconciled 12/01/23 by Nunu Elizabeth MD acamprosate 666 mg (2 x 333 mg) PO TID buprenorphine-naloxone 8-2 mg (Suboxone) 1 film sublingual BID escitalopram oxalate 5 mg PO DAILY 90 days hydroxyzine HCl 25 mg PO TID PRN omeprazole 20 mg PO DAILY 90 days trazodone 100 mg (2 x 50 mg) PO BEDTIME PRN Tobacco use date assessed: 12/01/23 Dental Screening Dental Screen Date: 12/01/23 Did you have a dental visit in the last 12 months?: No Did you have a dental problem in the last 6 months where you did not have access to dental care?: No Was dental information given to patient?: Patient has dentist HPI HPI Comments History of Present Illness Details This is a 38-year-old male with alcohol use disorder, chronic GERD, mild major depression and anxiety that comes today complaining of heartburn symptoms even taking omeprazole and feels like the food is staying in. 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 Not able to fully extend the right wrist. I will refer him to Occupational therapy for this matter. Alcohol use disorder is follow by [facility] and doing well on acamprosate. Depression and anxiety stable with escitalopram. Does follows up with counseling. He has obese with a BMI of 30.9 and was advised to do diet and exercise to reach BMI goal less than 30. [facility] Medical History (Updated 12/01/23 @ 18:13 by Nunu Elizabeth MD) GERD (gastroesophageal reflux disease) Opioid use disorder Left arm pain Insomnia RISHABH (generalized anxiety disorder) Moderate recurrent major depression Chronic GERD Abdominal pain Physical exam Class 1 obesity with body mass index (BMI) of 31.0 to 31.9 in adult Surgical History (Updated 12/01/23 @ 16:44 by Nunu Elizabeth MD) History of ankle surgery Family History Father No problems noted. Mother Anxiety and depression Mental health disorder Social History Housing: Apartment Alcohol intake: former Patient Tobacco Use Status: Former Tobacco user Tobacco use type: Cigarette e-Cigarette/Vaping Use: Never Used Second Hand Smoke Exposure: No service: No Current occupational status: unemployed Cognitive needs: No Hearing needs: No Vision needs: No Questionnaire PHQ-9 Over the last 2 weeks, how often have you been bothered by any of the following problems? 1. Little interest or pleasure in doing things: several days 2. Feeling down, depressed, or hopeless: several days 3. Trouble falling or staying asleep, or sleeping too much: nearly every day 4. Feeling tired or having little energy: several days 5. Poor appetite or overeating: more than half the days 6. Feeling bad about yourself - or that you are a failure or have let yourself or your family down: several days 7. Trouble concentrating on things, such as reading the newspaper or watching television: several days 8. Moving or speaking so slowly that other people could have noticed. Or the opposite - being so fidgety or restless that you have been moving around a lot more than usual: several days 9. Thoughts that you would be better off or of hurting yourself in some way: not at all Total score: 11 Depression Screening Interpretation: Positive Depression Screening Follow-up: Existing condition, In treatment, Community Mental Health Worker F/U and Follow- up Visit Requested Depression Screening Done: Yes 33280 - PHQ-9 Billing: Yes Source: Developed by Drs. Luiz Darby, Maria D Kate, Robbie Thakkar and colleagues, with an educational karel from [employer]. Thrive Questionnaire Date Thrive assessed: 12/01/23 I am a: Patient What is your living situation today?: I have a steady place to live Within the past 12 months, did the food you bought not last and you didn't have the money to get more?: Never true Within the past 12 months, did you worry whether your food would run out before you got money to buy more?: Never true Do you have trouble paying for medicines?: No Do you have trouble getting transportation to medical appointments?: No Do you have trouble paying your heating and electricity bill?: No Do you have trouble taking care of your child, family member or friend?: No Do you have trouble with day-to-day activities such as bathing, preparing meals, shopping, managing finances, etc.?: No Are you currently unemployed and looking for a job?: No Are you interested in more education?: No Please select the resources that you would like help with: None Currently or been in a relationship where the following occur: no concerns reported THRIVE Score: 0 AUDIT C Alcohol Use Questionnaire (AUDIT-C) 1. How often do you have a drink containing alcohol?: Never Total Score: 0 Score Reviewed/Action Taken: No RISHABH-7 AMB Questionnaire RISHABH-7 Date RISHABH - 7 assessed: 12/01/23 Feeling nervous, anxious, or on edge: 2 = More than half the days Not being able to stop or control worryin = Several days Worrying too much about different things: 1 = Several days Trouble relaxin = Several days Being so restless that it is hard to sit still: 1 = Several days Becoming easily annoyed or irritable: 1 = Several days Feeling afraid as if something awful might happen: 0 = Not at all Total RISHABH-7 score (0-4 normal; 5-9 mild; 10-14 moderate; 15-21 severe): 7 Source: Developed by Drs. Luiz Darby, Maria D Kate, Robbie Thakkar and colleagues, with an educational karel from [employer]. RISHABH-7 Assessment Billing RISHBAH-7 Assessment Tool: RISHABH-7 Assessment 07524 Review of Systems Const All systems reviewed & are unremarkable except as noted in HPI and below Card Denies chest pain at rest, Denies chest pain with activity, Denies edema, Denies irregular heart rhythm, Denies claudication, Denies dyspnea, Denies dyspnea on exertion, Denies orthopnea, Denies paroxysmal nocturnal dyspnea and Denies slow heart rate Resp Denies cough, Denies dyspnea and Denies dyspnea on exertion GI Reports abdominal pain, Reports bloating and Reports heartburn Musc Reports limited range of motion and Reports muscle weakness Physical exam (Primary Care) Vital Signs: Last Vital Signs BP 120/72 12/01/23 16:25 BMI result Body Mass Index 30.9 BMI Assessment/Plan discussion: High BMI High, discussed plan: lifestyle, weight reduction, dietary and physical activity Tobacco/Smoking Status: Tobacco use Status Tobacco use date assessed 12/01/23 12/01/23 16:33 Patient Tobacco Use Status Former Tobacco user 12/01/23 16:33 Tobacco use type Cigarette 12/01/23 16:33 e-Cigarette/Vaping Use Never Used 12/01/23 16:33 PHQ-9: PHQ-9 Score PHQ-9: Total score 11 12/01/23 16:38 Depression Screening Interpretation: Positive Depression Screening Follow-up: Existing condition, In treatment, Community Mental Health Worker F/U and Follow- up Visit Requested Thrive Assessment: Date of Thrive Assessment Date Thrive assessed 12/01/23 12/01/23 16:33 Currently or been in a relationship where the following occur: no concerns reported Resp Effort & Inspection: normal respiratory effort Auscultation: clear to auscultation bilaterally Cardio Jugular venous distension: no JVD Rate: regular rate Rhythm: regular rhythm Heart sounds: S1 normal heart sound present and S2 normal heart sound present Extrem Other: Limited right risk extension Psych Appearance: grossly normal Assessment and Plan Assessment & Plan (1) Alcohol use disorder, moderate, dependence: Code(s): F10.20 - Alcohol dependence, uncomplicated Plan: Continue acamprosate. Follow-up with [facility]. (2) Moderate recurrent major depression: Code(s): F33.1 - Major depressive disorder, recurrent, moderate Plan: Continue escitalopram. (3) Chronic GERD: Code(s): K21.9 - Gastro-esophageal reflux disease without esophagitis Plan: Discontinue omeprazole. Start pantoprazole. Upper GI series ordered. Referred to Gastroenterology. (4) RISHABH (generalized anxiety disorder): Comment: Anxious- Code(s): F41.1 - Generalized anxiety disorder Plan: Continue escitalopram. Use hydroxyzine as needed. Orders: Orders Lipid Panel Today E78.5 - Hyperlipidemia, unspecified Comprehensive [place]. Panel Fast Today F10.20 - Alcohol dependence, uncomplicated FL upper GI series Today K21.9 - Gastro-esophageal reflux disease without esophagitis OT Evaluation and Treatment Today M21.931 - Unspecified acquired deformity of right forearm Referrals Gastroenterology Referral K21.9 - Gastro-esophageal reflux disease without esophagitis Medications: New pantoprazole 40 mg PO DAILY 90 tabs 0RF 90 days Discontinued omeprazole Discontinued Reason: Patient Completed Course 20 mg PO DAILY 90 days 90 caps 2RF K21.9 - Gastro-esophageal reflux disease without esophagitis Coding Level of Care Code Est Pt Level 4 (11934) Complex EM visit Add On G2211 Diagnoses Alcohol use disorder, moderate, dependence F10.20 Moderate recurrent major depression F33.1 Chronic GERD K21.9 RISHABH (generalized anxiety disorder) F41.1 Additional Codes RISHABH-7 Assessment Billing - RISHABH-7 Assessment Tool: RISHABH-7 Assessment 67736 ([id number]) Time Spent (min) 23
== END 2023-12-01 16:53 | disposition home or self-care (01) ==
PROVIDERS: PCP Internal Medicine; Visit Provider Internal Medicine
DX: K21.9 Gastro-esophageal reflux disease without esophagitis (principal); F10.20 Alcohol dependence, uncomplicated; F33.1 Major depressive disorder, recurrent, moderate; F41.1 Generalized anxiety disorder
CPT/HCPCS: 99214; G2211

== ENCOUNTER 2024-02-07 08:21 | Outpatient (REF) | payer OTHER, SELFPAY ==
--- NOTE | ~2024-02-07 | FL_ITS ---
EXAMINATION: XR FLUOROSCOPY UPPER GI WITH AIR CLINICAL INFORMATION: Reflux. COMPARISON: None TECHNIQUE: Fluoroscopic air contrast upper GI examination was performed utilizing standard techniques with thin and thick barium and effervescent granules. Numerous spot images were obtained. FINDINGS: Dual and single contrast images of the esophagus demonstrate a normal caliber, and contour. Mild cricopharyngeal achalasia is present. The esophageal mucosa has a granular appearance, which suggests esophagitis. A small traction diverticulum is noted in the mid esophagus (RF 1-3, 13/80). No evidence of stricture, mass, or ulcerations identified. Esophageal peristalsis is mildly disorganized. No evidence of hiatus hernia identified. No significant gastroesophageal reflux was seen during the course of the examination and on reflux views. Dual contrast and single contrast images of the stomach demonstrated a normal contour. Evaluation of the gastric mucosal pattern is limited due to under distention of stomach from poor tolerance of the effervescent granules. The gastric rugal folds have a thickened appearance, which suggests gastritis, however this may be also due to under distention of stomach. There are a few focal areas of contrast pooling in the body the stomach that may represent small superficial apthous ulcers. No masses are seen. Contrast freely passed into the gastric antrum and duodenal bulb without delay. Single and air-contrast images of the duodenal bulb demonstrate no abnormality. The duodenal sweep has a normal appearance, course, and mucosal fold appearance. The imaged proximal jejunum has a normal fold pattern and caliber. FLUOROSCOPY TIME: 2 minutes 41 seconds Number of Spot Images: 6 Number of Cine: 10 DOSE AREA PRODUCT: 2379 uGy-m2 (microgray-meter squared) FL/FL upper GI w air IMPRESSION: 1. Mild cricopharyngeal achalasia. 2. Granular appearance of the esophageal mucosa which suggests esophagitis. 3. Small traction diverticulum noted in the mid esophagus. 4. Mildly disorganized esophageal peristalsis. 5. Limited evaluation of the gastric mucosa due to underdistention of the stomach from poor tolerance of the effervescent granules. The gastric rugal folds have a thickened appearance, which is suggestive of gastritis, however, this may also be due to underdistention of the stomach. There are also a few focal areas of contrast pooling in the body of the stomach that may represent small superficial aphthous ulcers. Recommend correlation with EGD. This procedure was performed by Basilio Morrell PA-C, and supervised by Dr. Steward Electronically signed by: Antonino Steward MD 02/09/2024 03:26 PM EDT
== END 2024-02-07 08:22 | disposition home or self-care (01) ==
LOC: HO.XRAY 08:21
PROVIDERS: PCP Internal Medicine; Visit Provider Internal Medicine
DX: K21.9 Gastro-esophageal reflux disease without esophagitis (principal)
CPT/HCPCS: 74246

== ENCOUNTER → 2024-02-07 08:22 | Outpatient (BNV) | payer OTHER, SELFPAY | PROVIDERS: PCP Internal Medicine; Visit Provider Radiology Diagnostic Radiology | DX: K21.9 Gastro-esophageal reflux disease without esophagitis (principal) | CPT/HCPCS: 74246 ==

== ENCOUNTER 2024-02-09 14:28 | Outpatient (AMB) | payer OTHER, SELFPAY ==
--- NOTE | 2024-02-09 14:54 | MHC.AM.SUB ---
Intake Visit Reasons: MAT Office Allergies No Known Allergies Allergy (Verified 12/01/23 16:37) HPI HPI MAT Office: Details: Patient presents for follow up Currently prescribed Suboxone 8mg BID Anxious about stomach discomfort Reports some drinking during 22 of December Restarted Campral following up with primary care [facility] Medical History (Updated 12/01/23 @ 18:13 by Nunu Elizabeth MD) GERD (gastroesophageal reflux disease) Opioid use disorder Left arm pain Insomnia RISHABH (generalized anxiety disorder) Moderate recurrent major depression Chronic GERD Abdominal pain Physical exam Class 1 obesity with body mass index (BMI) of 31.0 to 31.9 in adult Surgical History (Updated 12/01/23 @ 16:44 by Nunu Elizabeth MD) History of ankle surgery Family History Father No problems noted. Mother Anxiety and depression Mental health disorder Social History Housing: Apartment Alcohol intake: former Patient Tobacco Use Status: Former Tobacco user Tobacco use type: Cigarette e-Cigarette/Vaping Use: Never Used Second Hand Smoke Exposure: No service: No Current occupational status: unemployed Cognitive needs: No Hearing needs: No Vision needs: No Review of Systems Const Reports as per HPI Physical Exam Const General: cooperative, anxious and well groomed Orientation/consciousness: patient oriented x3 Neuro General: patient oriented x3 Assessment & Plan Assessment & Plan (1) Alcohol use disorder, moderate, dependence: Code(s): F10.20 - Alcohol dependence, uncomplicated Category: Medical Plan: continue campral (2) Opioid use disorder: Code(s): F11.90 - Opioid use, unspecified, uncomplicated Category: Medical Plan: continue suboxone at current dose follow up 4 weeks Medications: Refilled buprenorphine-naloxone 8-2 mg (Suboxone) 1 film sublingual BID 60 ea 0RF trazodone 100 mg (2 x 50 mg) PO BEDTIME 180 tabs 0RF for insomnia
== END 2024-02-09 15:53 | disposition home or self-care (01) ==
PROVIDERS: PCP Internal Medicine; Visit Provider Nurse Practitioner Psychiatric/Mental Health
DX: F10.20 Alcohol dependence, uncomplicated (principal); F11.90 Opioid use, unspecified, uncomplicated
CPT/HCPCS: 99214

== ENCOUNTER → 2024-02-09 14:28 | Outpatient (BNVA) | payer OTHER, SELFPAY | PROVIDERS: PCP Internal Medicine; Visit Provider Nurse Practitioner Psychiatric/Mental Health | DX: F11.20 Opioid dependence, uncomplicated (principal); F10.20 Alcohol dependence, uncomplicated; Z79.899 Other long term (current) drug therapy | CPT/HCPCS: 99212 ==

== ENCOUNTER 2024-02-14 14:18 | Outpatient (AMB) | payer OTHER, SELFPAY ==
--- NOTE | 2024-02-14 14:18 | MHC.OFFVIS ---
Intake Visit Reasons: Severe abd pain, recent ED adm. OK'd by Ronna Intake Note: Mark presents as a telehealth for follow up ED and severe abdominal pains. CC: states that it is right above the rib cage. HE states he feels like he is holding an extra 50 lbs. HE is bloated all the time. HE states that he is having severe constipation but the entire stomach feels bloated but the lower abdomen feels constipated. He went [place] [facility] [place] they said his liver and gall bladder may be enlarged. He thought he was getting his EGD today. He states that he has stopped drinking and slowed down on his greasy foods. Eating a lot better. Senior Customer Service Representative Required: No Allergies No Known Allergies Allergy (Verified 02/14/24 14:18) HPI HPI Severe abd pain, recent ED adm. OK'd by Ronna: Details: 38 yr old m being called for assessment He had been having issues with nausea and vomiting he has been having issues with constipation he denies melena, and no rectal bleeding he takes laxatives which helps pressure around the abdomen and blue veins on his belly he has hx of on and off alcohol xs over last year or so he has been taking pantoprazole 40 mg daily he has hx of compartment syndrome few years back and needed fascietomy He had Upper GI exam: 02/11 cricopharygeal achalasia esophagitis apthous ulcers in stomach [facility] - 02/11 submucosal colon fatty infiltrate hepatosplenomegaly Labs: abn LFT [facility] A/P: 1/ abn LFT< maybe from alcoholic hepatitis, 2/ Nausea and vomiting, may have been from alcohol gastritis, esophagitis 3/ constipation PLAN: 1/ will recheck labs 2/ US liver 3/ EGD, cont with pantoprazole, and avoid alcohol 4/might need colonoscopy at future date, high fiber diet, and good fluid intake recommended [facility] Medical History GERD (gastroesophageal reflux disease) Opioid use disorder Left arm pain Insomnia RISHABH (generalized anxiety disorder) Moderate recurrent major depression Chronic GERD Abdominal pain Physical exam Class 1 obesity with body mass index (BMI) of 31.0 to 31.9 in adult Surgical History History of ankle surgery Family History Father No problems noted. Mother Anxiety and depression Mental health disorder Social History Housing: Apartment Alcohol intake: former Patient Tobacco Use Status: Former Tobacco user Tobacco use type: Cigarette e-Cigarette/Vaping Use: Never Used Second Hand Smoke Exposure: No service: No Current occupational status: unemployed Cognitive needs: No Hearing needs: No Vision needs: No Telehealth Telehealth Telehealth Platform: Telephone Location of provider rendering services: practice address Location of patient: address on file Patient Identification confirmed using: Name, : Yes Telehealth method: voice only Patient verbally consented to treatment: Yes Patient verbally consented to billing insurance company: Yes Patient informed of any privacy concerns related to visit: Yes Minutes spent on Phone/Video with Pt.: 10 Assessment & Plan Assessment & Plan (1) Nausea & vomiting: Comment: Nausea vomit-binge eats at night, alcohol marijuana-likely playing a role Will get ge Discuss cannabis hyperemesis May continue PPI and Zofran CBC, CMP lipase Code(s): R11.2 - Nausea with vomiting, unspecified Category: Medical Plan: see above (2) Abnormal LFTs: Code(s): R79.89 - Other specified abnormal findings of blood chemistry Category: Medical Plan: see above Orders: Orders Complete Blood Count Auto Diff Today R11.2 - Nausea with vomiting, unspecified, R79.89 - Other specified abnormal findings of blood chemistry Prothrombin Time INR Today R11.2 - Nausea with vomiting, unspecified, R79.89 - Other specified abnormal findings of blood chemistry Comprehensive Met. Panel Today K75.81 - Nonalcoholic steatohepatitis (VALENZUELA), R11.2 - Nausea with vomiting, unspecified, R79.89 - Other specified abnormal findings of blood chemistry Vitamin A Today R11.2 - Nausea with vomiting, unspecified, R79.89 - Other specified abnormal findings of blood chemistry Vitamin B1 Today R11.2 - Nausea with vomiting, unspecified, R79.89 - Other specified abnormal findings of blood chemistry Vitamin B12 and Folate Today R11.2 - Nausea with vomiting, unspecified, R79.89 - Other specified abnormal findings of blood chemistry Vitamin B6 Today R11.2 - Nausea with vomiting, unspecified, R79.89 - Other specified abnormal findings of blood chemistry Vitamin C Today R11.2 - Nausea with vomiting, unspecified, R7. - Other specified abnormal findings of blood chemistry Zinc Today R11.2 - Nausea with vomiting, unspecified, R7. - Other specified abnormal findings of blood chemistry Ferritin Today R11.2 - Nausea with vomiting, unspecified, R7. - Other specified abnormal findings of blood chemistry Erythrocyte Sedimentation Rate Today R11.2 - Nausea with vomiting, unspecified, R7. - Other specified abnormal findings of blood chemistry Hepatitis A,B,C Profile Today R11.2 - Nausea with vomiting, unspecified, R7. - Other specified abnormal findings of blood chemistry US abdomen comp w elastography Today - Other specified abnormal findings of blood chemistry Vitamin B3 (Niacin) Today R11.2 - Nausea with vomiting, unspecified, R7 - Other specified abnormal findings of blood chemistry Vitamin B5 (Pantothenic Acid) Today R11.2 - Nausea with vomiting, unspecified, R7 - Other specified abnormal findings of blood chemistry Vitamin D 25-OH Total Today R11.2 - Nausea with vomiting, unspecified, R7. - Other specified abnormal findings of blood chemistry Vitamin E Today R11.2 - Nausea with vomiting, unspecified, R7. - Other specified abnormal findings of blood chemistry Vitamin K1 Today R11.2 - Nausea with vomiting, unspecified, R7 - Other specified abnormal findings of blood chemistry TSH reflex Free T4 Today R11.2 - Nausea with vomiting, unspecified, R7. - Other specified abnormal findings of blood chemistry Coding Level of Care Code Tele Est Pt Level 4 (76340) Diagnoses Nausea & vomiting R11.2 Abnormal LFTs
== END 2024-02-14 15:16 | disposition home or self-care (01) ==
LOC: HO.HGI 14:18
PROVIDERS: PCP Internal Medicine; Visit Provider Internal Medicine Gastroenterology
DX: R11.2 Nausea with vomiting, unspecified (principal); R79.89 Other specified abnormal findings of blood chemistry
CPT/HCPCS: 99214

== ENCOUNTER → 2024-02-14 14:18 | Outpatient (BNVA) | payer OTHER, SELFPAY | PROVIDERS: PCP Internal Medicine; Visit Provider Internal Medicine Gastroenterology ==

== ENCOUNTER 2024-02-24 08:19 | Outpatient (REF) | payer OTHER, SELFPAY ==
--- NOTE | ~2024-02-24 | US_ITS ---
EXAMINATION: US COMPLETE ABDOMEN WITH LIVER ELASTOGRAPHY CLINICAL INFORMATION: Alcohol abuse and abnormal LFTs. COMPARISON: None available. TECHNIQUE: Real-time imaging of the abdominal viscera. Noninvasive ultrasound liver fibrosis assessment is performed using Dorie ElastPQ point quantification shear wave elastography (pSWE) with a C5-2 MHz transducer. Multiple elastography samples are obtained. FINDINGS: PANCREAS: The visualized pancreatic head and body are normal in appearance. The remainder of the pancreas is obscured from visualization by the overlying bowel gas. ABDOMINAL AORTA: The proximal, middle, and distal aortic segments are normal in caliber. INFERIOR VENA CAVA: Visualized portions are normal. LIVER: The liver is enlarged with increased echogenicity. No focal lesion or intrahepatic biliary duct dilatation. The right lobe measures 20.0 cm in length. The left lobe measures 15.0 cm in length. Portal flow is towards the liver (hepatopetal). Shear wave liver elastography median stiffness is 1.48 m/s (reference: normal median stiffness is 1.3 m/s or less). IQR/median stiffness to assess sampling precision is 0.30 (reference: good quality data set is IQR/median stiffness of 0.15 or less). GALLBLADDER: Gallbladder is filled with echogenic bile. No shadowing stones or pericholecystic fluid. COMMON BILE DUCT: Normal in caliber measuring 0.4 cm in diameter. RIGHT KIDNEY: Normal. No hydronephrosis. No renal calculi or focal parenchymal lesions. The kidney measures 12.0 cm in maximum dimension. LEFT KIDNEY: Normal. No hydronephrosis. No renal calculi or focal parenchymal lesions. The kidney measures 14.1 cm in maximum dimension. SPLEEN: The spleen is enlarged measuring 17.1 cm in maximum dimension. FREE FLUID: None. US/US abdomen comp w elastography IMPRESSION: 1. Enlarged fatty liver, splenomegaly and a gallbladder filled with sludge. 2. Liver elastography: Although measurements appear to rule out compensated advanced chronic liver disease, there is statistical variability of the sampling which decreases accuracy. REFERENCE: Society of Radiologists in Ultrasound Liver Stiffness Thresholds (2019): LIVER STIFFNESS THRESHOLDS: *Liver Stiffness equal or less than 1.3 m/s: High probability of being normal. *Liver Stiffness less than 1.7 m/s: In the absence of other known clinical signs, rules out compensated advanced chronic liver disease. *Liver Stiffness 1.7-2.1 m/s: Suggestive of compensated advanced chronic liver disease but need further test for confirmation. *Liver Stiffness over 2.1 m/s: Rules in compensated advanced chronic liver disease. *Liver Stiffness over 2.4 m/s: Suggestive of clinically significant portal hypertension. QUALITY OF DATA SET: *IQR/Median value equal or less than 0.15 implies a quality data set. *IQR/Median value over 0.15 implies a poor quality data set. SIGNIFICANT CHANGE FROM PRIOR EXAM: Significant change if liver stiffness measurement is 10% or greater from prior exam. OTHER CONSIDERATIONS: The stage of liver fibrosis may be overestimated in the setting of acute hepatitis, liver inflammation, elevated liver function tests, hepatic vascular congestion, obstructive cholestasis, non-fasting state, and infiltrative diseases such as amyloidosis and lymphoma. In some patients with NAFLD, the liver stiffness thresholds for compensated advanced chronic liver disease may be lower. In causes other than viral hepatitis and NAFLD, liver stiffness thresholds are not well established. Electronically signed by: Boston Gonzalez MD 03/04/2024 09:05 AM EDT
== END 2024-02-24 08:20 | disposition home or self-care (01) ==
LOC: HO.US 08:19
PROVIDERS: PCP Internal Medicine; Visit Provider Internal Medicine Gastroenterology
DX: R79.89 Other specified abnormal findings of blood chemistry (principal)
CPT/HCPCS: 76700; 76981

== ENCOUNTER 2024-03-08 13:02 | Outpatient (AMB) | payer OTHER, SELFPAY ==
--- NOTE | 2024-03-08 13:11 | A.OFFVISCC_ITS ---
Intake Visit Reasons: MAT Office Allergies No Known Allergies Allergy (Verified 02/14/24 14:18) HPI HPI MAT Office: Details: Patient presents for follow up AUD and OUD Recently seen by GI and being worked up for abdominal pain bright affect--motivated and has been trying to keep busy tolerating medications PFSH Medical History GERD (gastroesophageal reflux disease) Opioid use disorder Left arm pain Insomnia RISHABH (generalized anxiety disorder) Moderate recurrent major depression Chronic GERD Abdominal pain Physical exam Class 1 obesity with body mass index (BMI) of 31.0 to 31.9 in adult Surgical History History of ankle surgery Family History Father No problems noted. Mother Anxiety and depression Mental health disorder Social History Housing: Apartment Alcohol intake: former Patient Tobacco Use Status: Former Tobacco user Tobacco use type: Cigarette e-Cigarette/Vaping Use: Never Used Second Hand Smoke Exposure: No service: No Current occupational status: unemployed Cognitive needs: No Hearing needs: No Vision needs: No Review of Systems Const Reports as per HPI and Reports no additional complaints Physical Exam Const General: cooperative, healthy appearing and no acute distress Orientation/consciousness: patient oriented x3 Neuro General: patient oriented x3 Assessment & Plan Assessment & Plan (1) Alcohol use disorder, moderate, dependence: Code(s): F10.20 - Alcohol dependence, uncomplicated Category: Medical Plan: * continue campral * relapse prevention discussion (2) Opioid use disorder: Code(s): F11.90 - Opioid use, unspecified, uncomplicated Category: Medical Plan: * continue suboxone Medications: Refilled buprenorphine-naloxone 8-2 mg (Suboxone) 1 film sublingual BID 60 ea 0RF Discontinued escitalopram oxalate Discontinued Reason: Doctor's Order 5 mg PO DAILY 90 days 90 tabs 1RF
== END 2024-03-08 13:32 | disposition home or self-care (01) ==
PROVIDERS: PCP Internal Medicine; Visit Provider Nurse Practitioner Psychiatric/Mental Health
DX: F10.20 Alcohol dependence, uncomplicated (principal); F11.90 Opioid use, unspecified, uncomplicated
CPT/HCPCS: 99214

== ENCOUNTER → 2024-03-08 13:02 | Outpatient (BNVA) | payer OTHER, SELFPAY | PROVIDERS: PCP Internal Medicine; Visit Provider Nurse Practitioner Psychiatric/Mental Health | DX: F10.20 Alcohol dependence, uncomplicated (principal); F11.20 Opioid dependence, uncomplicated; Z79.899 Other long term (current) drug therapy; Z51.81 Encounter for therapeutic drug level monitoring | CPT/HCPCS: 99212 ==

== ENCOUNTER 2024-04-05 10:28 | Outpatient (AMB) | payer OTHER, SELFPAY ==
--- NOTE | 2024-04-05 10:40 | A.OFFVISCC_ITS ---
Intake Visit Reasons: MAT Office Allergies No Known Allergies Allergy (Verified 02/14/24 14:18) HPI HPI MAT Office: Details: Patient presents for follow up Currently prescribed suboxone 8mg BID Campral TID Reports having a 6 pack of beer recently Didn't feel good the next morning Continues to be seen by GI Endoscopy in May Reports full feeling in abdomen is improving Would like to apply for work [facility] Medical History GERD (gastroesophageal reflux disease) Opioid use disorder Left arm pain Insomnia RISHABH (generalized anxiety disorder) Moderate recurrent major depression Chronic GERD Abdominal pain Physical exam Class 1 obesity with body mass index (BMI) of 31.0 to 31.9 in adult Surgical History History of ankle surgery Family History Father No problems noted. Mother Anxiety and depression Mental health disorder Social History Housing: Apartment Alcohol intake: former Patient Tobacco Use Status: Former Tobacco user Tobacco use type: Cigarette e-Cigarette/Vaping Use: Never Used Second Hand Smoke Exposure: No service: No Current occupational status: unemployed Cognitive needs: No Hearing needs: No Vision needs: No Review of Systems Const Reports as per HPI Physical Exam Const General: cooperative, healthy appearing and no acute distress Orientation/consciousness: patient oriented x3 Neuro General: patient oriented x3 Assessment & Plan Assessment & Plan (1) Alcohol use disorder, moderate, dependence: Code(s): F10.20 - Alcohol dependence, uncomplicated Category: Medical Plan: * risk reduction discussion r/t drinking * follow up 4 weeks (2) Opioid use disorder: Code(s): F11.90 - Opioid use, unspecified, uncomplicated Category: Medical Plan: * continue suboxone at current dose Medications: Refilled buprenorphine-naloxone 8-2 mg (Suboxone) 1 film sublingual BID 60 ea 0RF acamprosate 666 mg (2 x 333 mg) PO TID 540 tabs 1RF
== END 2024-04-05 11:48 | disposition home or self-care (01) ==
PROVIDERS: PCP Internal Medicine; Visit Provider Nurse Practitioner Psychiatric/Mental Health
DX: F10.20 Alcohol dependence, uncomplicated (principal); F11.90 Opioid use, unspecified, uncomplicated
CPT/HCPCS: 99214

== ENCOUNTER → 2024-04-05 10:28 | Outpatient (BNVA) | payer OTHER, SELFPAY | PROVIDERS: PCP Internal Medicine; Visit Provider Nurse Practitioner Psychiatric/Mental Health | DX: F10.20 Alcohol dependence, uncomplicated (principal); F11.20 Opioid dependence, uncomplicated | CPT/HCPCS: 99212 ==

== ENCOUNTER 2024-05-15 13:09 | Outpatient (AMB) | payer OTHER, SELFPAY ==
--- NOTE | 2024-05-15 13:20 | A.OFFVISCC_ITS ---
Intake Visit Reasons: MAT Allergies No Known Allergies Allergy (Verified 02/14/24 14:18) HPI HPI MAT: Details: Patient presents for follow up AUD and OUD Reports that he had a week where he was drinking a pint daily felt sick after a week--unable to keep food or liquids down has been using weights and rubber bands to help with cravings Limited structure at home -- too much time on my hands Applied to [facility] and [facility]. Has been sleeping better recently Still no acamprosate, pharamcy will not be getting it again --- will start gabapentin instead. Recently completed intake for therapy at [facility] states his visits will be telehealth Review of Systems Const Reports as per HPI Physical Exam Const General: cooperative, healthy appearing, comfortable and well groomed Nutritional Appearance: average body habitus Orientation/consciousness: patient oriented x3 Neuro General: patient oriented x3 Psych Appearance: well kempt Speech and movement: Clear speech present Affect: normal affect Attitude: cooperative Thought process: Normal thought process present Insight: Fair insight present (Psych) Judgement: Good judgement present (Psych) Assessment & Plan Assessment & Plan (1) Opioid use disorder: Code(s): F11.90 - Opioid use, unspecified, uncomplicated Category: Medical Plan: * continue suboxone at current dose * relapse prevention discussion (2) Alcohol use disorder, moderate, dependence: Code(s): F10.20 - Alcohol dependence, uncomplicated Category: Medical Plan: * risk reduction discussion * will start gabapentin in lieu of acamprosate since it is on backorder Medications: New gabapentin 100 mg PO BID 60 caps 0RF Refilled buprenorphine-naloxone 8-2 mg (Suboxone) 1 film sublingual BID 60 ea 1RF PFSH Medical History GERD (gastroesophageal reflux disease) Opioid use disorder Left arm pain Insomnia RISHABH (generalized anxiety disorder) Moderate recurrent major depression Chronic GERD Abdominal pain Physical exam Class 1 obesity with body mass index (BMI) of 31.0 to 31.9 in adult Surgical History History of ankle surgery Family History Father No problems noted. Mother Anxiety and depression Mental health disorder Social History Housing: Apartment Alcohol intake: former Patient Tobacco Use Status: Former Tobacco user Tobacco use type: Cigarette e-Cigarette/Vaping Use: Never Used Second Hand Smoke Exposure: No service: No Current occupational status: unemployed Cognitive needs: No Hearing needs: No Vision needs: No
== END 2024-05-15 13:49 | disposition home or self-care (01) ==
PROVIDERS: PCP Internal Medicine; Visit Provider Nurse Practitioner Psychiatric/Mental Health
DX: F11.90 Opioid use, unspecified, uncomplicated (principal); F10.20 Alcohol dependence, uncomplicated
CPT/HCPCS: 99214

== ENCOUNTER → 2024-05-15 13:09 | Outpatient (BNVA) | payer OTHER, SELFPAY | PROVIDERS: PCP Internal Medicine; Visit Provider Nurse Practitioner Psychiatric/Mental Health | DX: F10.20 Alcohol dependence, uncomplicated (principal); F11.90 Opioid use, unspecified, uncomplicated; Z51.81 Encounter for therapeutic drug level monitoring | CPT/HCPCS: 99212 ==

== ENCOUNTER 2024-06-15 09:44 | Day surgery (SDC) | payer OTHER, SELFPAY ==
[2024-06-12 12:58] VITALS: BMI 30.9
[2024-06-15 10:00] VITALS: BMI 30.4
[2024-06-15 10:09] VITALS: BP 168/107; PULSE 104; RESP 16; TEMP 37.6; O2SAT 95
--- NOTE | 2024-06-15 10:12 | HO.ANESPROP2 ---
HPI - Anesthesia Eval Consult details Narrative: 39 yo M presenting for EGD. Hx of alcohol use disorder and opioid use disorder. Daily marijuana. PMFSH Active Problems Active Problems: All Active Problems Abnormal LFTs (Acute) Right wrist deformity (Acute) Alcohol use disorder, moderate, dependence (Acute) Hypertension (Acute) Nausea & vomiting (Acute) Physical exam (Acute) Opioid use disorder (Acute) Left arm pain (Acute) Insomnia (Acute) RISHABH (generalized anxiety disorder) (Acute) Moderate recurrent major depression (Acute) Chronic GERD (Acute) Abdominal pain (Acute) Class 1 obesity with body mass index (BMI) of 31.0 to 31.9 in adult (Acute) Past Medical History Medical History (Updated 06/12/24 @ 12:56 by Elba Bryant RN) Alcohol use disorder Compartment syndrome GERD (gastroesophageal reflux disease) Opioid use disorder Left arm pain Insomnia RISHABH (generalized anxiety disorder) Moderate recurrent major depression Chronic GERD Abdominal pain Class 1 obesity with body mass index (BMI) of 31.0 to 31.9 in adult Family History Family History Father No problems noted. Mother Anxiety and depression Mental health disorder Family history of problems with anesthesia: No Surgical History Surgical History (Updated 06/12/24 @ 12:55 by Elba Bryant RN) History of surgery on wrist History of ankle surgery History of Problems with Anesthesia: No Social History Social History Housing: Apartment Alcohol intake: former Patient Tobacco Use Status: Former Tobacco user Tobacco use type: Cigarette e-Cigarette/Vaping Use: Never Used Second Hand Smoke Exposure: No Use of substances other than those prescribed or required for medical reasons: Yes Substance Use Type Other:: last smoked this morning Substance Use Frequency: Daily Are you DNR?: No Advance Directives: No Advance Directives Information Provided: Yes service: No Current occupational status: unemployed Cognitive needs: No Hearing needs: No Vision needs: No Meds Allergies Allergy/AdvReac Type Severity Reaction Status Date / Time No Known Allergies Allergy Verified 06/15/24 09:53 Active Medications: Current Medications Lactated Ringer's (Lr) 1,000 mls @ 50 mls/hr IVCONT .Q20H JESSEE Exam Exam Date and Time: 06/15/24 1010 Height,Weight and Vital Signs: Height 5 ft 9 in Weight 87.997 kg Last Vital Signs Temp 99.7 F 06/15/24 10:09 Pulse 104 H 06/15/24 10:09 Resp 16 06/15/24 10:09 BP 168/107 H 06/15/24 10:09 Pulse Ox 95 06/15/24 10:09 O2 Del Method Room Air 06/15/24 10:09 Airway Mallampati Class: II TM Dist: >3cm Neck ROM: Full Loose/Missing/Broken Teeth: Yes (broken molar right upper jaw) Heart: S1S2 Lungs: CTAB Assessment and Plan Assessment Anesthesia Assessment: Anesthesia Plan Discussed and Chart Reviewed Final Anesthetic Review Family History of Problems with Anesthesia: No History of Problems with Anesthesia: No NPO: Yes ASA Class: III Final Preanesthetic Review: No Changes in Pt Med Stat, Meds/Allgs Chart Reviewed, Consent Obtained/Reviewed and Anes Risks/Benef Reviewed Patient Risk: Intermediate Procedure Risk: Low Anesthetic Plan Anesthetic Plan: MAC: and Agree w/ Assess. and Plan Disposition: Standard PACU
[2024-06-15 10:14] VITALS: BP 149/91
[2024-06-15] MEDS: Lactated Ringers 1,000 ML 50 ML IVCONT (10:20)
--- NOTE | 2024-06-15 10:25 | MHC.SHP ---
Pre-Procedural Eval Section A - 24 Hr Update-Section A only Date of Service: 06/15/24 Section B - Complete if H&P > 30 days Chief Complaint: Nausea with vomiting, unspecified Relevant Family History (Specify if Yes): No Relevant Social History: Alcohol Use Present Medications: see Short Stay Collaborative assessment Medical History: Significant History (GERD (gastroesophageal reflux disease) Opioid use disorder Left arm pain Insomnia RISHABH (generalized anxiety disorder) Moderate recurrent major depression Chronic GERD Abdominal pain Physical exam Class 1 obesity with body mass index (BMI) of 31.0 to 31.9 in adult) History of Previous Operations: Relevant previous surgery/procedure and date(s) (History of ankle surgery) Allergies: Allergies Allergy/AdvReac Type Severity Reaction Status Date / Time No Known Allergies Allergy Verified 06/15/24 09:53 Review of Systems Sugical H&P ROS: Negative: Constitution, Cardiovascular, Respiratory, Neurological, Psychiatric, Hem-Onc, Allergic/Immunologic, Gastrointestinal, Genitourinary, Musculoskeletal, Integumentary, Endocrine and Eyes/Ears/Nose/Throat Exam Surgical H&P Exam: Normal: HEENT, Normal: Heart, Normal: Lungs, Normal: Extremities, Normal: Abdomen, Normal: Skin and Normal: Neurological Plan Diagnosis/Plan: Unchanged I have reviewed the history and physical and performed a pertinent physical examination on my patient. No changes have occurred unless specified. Time Spent With Patient Time: Total time managing care of this patient today ____ minutes.
--- NOTE | 2024-06-15 10:44 | W.PM.OPN ---
Operative Note Operative Note Date of Service: 06/15/24 Narrative: Procedure Description: EGD Indication: nausea, hx of alcohol liver disease Anesthesia: MAC FLEXIBLE TRANSORAL UPPER GASTROINTESTINAL ENDOSCOPY UPPER ENDOSCOPY Consent: Indications for the procedure and potential complications of bleeding, perforation, reaction to medications and missed diagnosis were discussed with the patient and informed consent was obtained. Instrument: Olympus GIF H 190 J mid size upper endoscope Monitoring: Vital signs and clinical assessment, continuous EKG monitoring, Pulse oximetry, Carbon Dioxide monitoring and blood pressure monitoring were done throughout the procedure. Procedure: The patient was placed in the left lateral decubitis position and pre-procedure medications were administered and a bite block was placed. The endoscope was inserted into the mouth and advanced under direct vision to the third part of duodenum. A careful inspection was made as the upper endoscope was withdrawn including a retroflexed examination of the proximal stomach; Findings and interventions are described below. Findings: Larynx:normal Esophagus: GE junction at 35 cm, diaphragm hiatus at 37 cm, consistent with 2 cm sliding hiatal hernia, mild esophagitis and flat varices noted Stomach: patchy erythema and mosaic pattern consistent with portal hypertensive gastropathy . Biopsies were obtained. Grade 2 flap valve on retroflexed examination of the cardia. Duodenum: Normal bulb and descending duodenum, Intervention: Biopsies as noted above, Impression/Findings: gastritis portal hypertensive gastropathy flat varices mild esophagitis PLAN: cont with PPI GERD precautions alcohol abstinence needs to go for labs
[2024-06-15 10:48] VITALS: BP 134/90; PULSE 113; RESP 20; TEMP 37.1; O2SAT 98
[2024-06-15 11:03] VITALS: BP 147/92; PULSE 91; RESP 16; O2SAT 96
[2024-06-15 11:17] VITALS: BP 155/101; PULSE 90; RESP 16; TEMP 36.3; O2SAT 95
== END 2024-06-15 11:45 | disposition home or self-care (01) ==
PROVIDERS: PCP Internal Medicine; Visit Provider Internal Medicine Gastroenterology
PROC: 0DJ08ZZ Inspection of Upper Intestinal Tract, Via Natural or Artificial Opening Endoscopic (ICD-10-PCS; CPT 43235; principal; 2024-06-15 11:30)
DX: K29.60 Other gastritis without bleeding (principal); K76.6 Portal hypertension; K31.89 Other diseases of stomach and duodenum; K70.9 Alcoholic liver disease, unspecified; I85.10 Secondary esophageal varices without bleeding; K20.90 Esophagitis, unspecified without bleeding; K21.9 Gastro-esophageal reflux disease without esophagitis; K44.9 Diaphragmatic hernia without obstruction or gangrene; R11.2 Nausea with vomiting, unspecified; I10 Essential (primary) hypertension; F41.1 Generalized anxiety disorder; F10.20 Alcohol dependence, uncomplicated; F12.90 Cannabis use, unspecified, uncomplicated; F11.90 Opioid use, unspecified, uncomplicated; Z87.891 Personal history of nicotine dependence
CPT/HCPCS: 43239; 88305; 88342; J2003; J2704

== ENCOUNTER → 2024-06-15 09:44 | Outpatient (BNV) | payer OTHER, SELFPAY | PROVIDERS: PCP Internal Medicine; Visit Provider Internal Medicine Gastroenterology | DX: K20.90 Esophagitis, unspecified without bleeding (principal); K31.89 Other diseases of stomach and duodenum; K29.70 Gastritis, unspecified, without bleeding; I85.00 Esophageal varices without bleeding | CPT/HCPCS: 43239 ==

== ENCOUNTER → 2024-09-27 16:13 | Outpatient (BNVA) | payer OTHER, SELFPAY | PROVIDERS: PCP Internal Medicine; Visit Provider Internal Medicine ==

== ENCOUNTER 2024-10-25 14:16 | Outpatient (AMB) | payer OTHER, SELFPAY ==
[2024-10-25 14:42] VITALS: PULSE 112; O2SAT 97
--- NOTE | 2024-10-25 14:42 | MHC.OFFVIS ---
Vital Signs 10/25/24 14:42 Height 5 ft 9 in Pulse 112 H Pulse Source Pulse Oximeter Pulse Oximetry (%) 97 Oxygen Delivery Method Room Air Intake Visit Reasons: mat visit Allergies No Known Allergies Allergy (Verified 10/25/24 14:42) HPI HPI mat visit: Details: He is doing well and has no complaints. [facility] Medical History Alcohol use disorder Compartment syndrome GERD (gastroesophageal reflux disease) Opioid use disorder Left arm pain Insomnia RISHABH (generalized anxiety disorder) Moderate recurrent major depression Chronic GERD Abdominal pain Class 1 obesity with body mass index (BMI) of 31.0 to 31.9 in adult Surgical History History of surgery on wrist History of ankle surgery Family History Father No problems noted. Mother Anxiety and depression Mental health disorder Social History Housing: Apartment Alcohol intake: former Patient Tobacco Use Status: Former Tobacco user Tobacco use type: Cigarette e-Cigarette/Vaping Use: Never Used Second Hand Smoke Exposure: No service: No Current occupational status: unemployed Cognitive needs: No Hearing needs: No Vision needs: No Review of Systems Const All systems reviewed & are unremarkable except as noted in HPI and below Physical Exam Vital Signs: Last Vital Signs Pulse 112 H 10/25/24 14:42 Pulse Ox 97 10/25/24 14:42 Oxygen Delivery Method Room Air 10/25/24 14:42 Const General: cooperative Results AMB 14 Panel Urine Drug Screen Urine Marijuana (THC) Positive Last Edit by Lucy Gabriel CMA on 10/25/24 14:44 Urine Cocaine Positive Last Edit by Lucy Gabriel CMA on 10/25/24 14:44 Urine Morphine Negative Last Edit by Lucy Gabriel CMA on 10/25/24 14:44 Urine Methamphetamine Negative Last Edit by Lucy Gabriel CMA on 10/25/24 14:44 Urine Amphetamine Negative Last Edit by Lucy Gabriel CMA on 10/25/24 14:44 Urine Benzodiazepine Negative Last Edit by Lucy Gabriel CMA on 10/25/24 14:44 Urine Barbiturates Negative Last Edit by Lucy Gabriel CMA on 10/25/24 14:44 Urine Methadone Negative Last Edit by Lucy Gabriel CMA on 10/25/24 14:44 Urine Buprenorphine Positive Last Edit by Lucy Gabriel CMA on 10/25/24 14:44 Urine Tricyclic Antidepressant Negative Last Edit by Lucy Gabriel CMA on 10/25/24 14:44 Urine MDMA Negative Last Edit by Lucy Gabriel CMA on 10/25/24 14:44 Urine Oxycodone Negative Last Edit by Lucy Gabriel CMA on 10/25/24 14:44 Urine Phencyclidine Negative Last Edit by Lucy Gabriel CMA on 10/25/24 14:44 Urine Propoxyphene Negative Last Edit by Lucy Gabriel CMA on 10/25/24 14:44 Results Reviewed Results Reviewed: Laboratory Last Values POC Urine Buprenorphine Positive 10/25/24 14:43 POC Urine Morphine Negative 10/25/24 14:43 POC Urine Oxycodone Negative 10/25/24 14:43 POC Urine Methadone Negative 10/25/24 14:43 POC Urine Propoxyphene Negative 10/25/24 14:43 POC Urine Barbiturates Negative 10/25/24 14:43 POC U Tricyclic Antidpr Negative 10/25/24 14:43 POC Urine PCP Negative 10/25/24 14:43 POC Ur Amphetamines Negative 10/25/24 14:43 POC Ur Methamphetamine Negative 10/25/24 14:43 POC Urine MDMA Negative 10/25/24 14:43 POC Ur Benzodiazepine Negative 10/25/24 14:43 POC Urine Cocaine Positive 10/25/24 14:43 POC Ur Marijuana (THC) Positive 10/25/24 14:43 Assessment & Plan Assessment & Plan (1) Alcohol use disorder, moderate, dependence: Code(s): F10.20 - Alcohol dependence, uncomplicated Category: Medical Plan: Continue current meds Orders: Orders AMB 14 Panel Urine Drug Screen 10/25/24 Z51.81 - Encounter for therapeutic drug level monitoring Medications: New acamprosate 666 mg (2 x 333 mg) PO TID 180 tabs 5RF 30 days buprenorphine-naloxone 8-2 mg (Suboxone) place 1 film on inside of (each) cheek 2 film sublingual Q24H 60 ea 0RF 30 days trazodone 50 mg PO BEDTIME 30 tabs 5RF 30 days Coding Level of Care Code Est Pt Level 3 (18678) Diagnoses Alcohol use disorder, moderate, dependence F10.20
--- OUTSIDE RECORDS SUMMARY | 2024-10-25 15:28 | XMS_ITS | Clinical Summary ---
Author Organization [facility] Facility Address [address] [address] Care Team Providers Care Scraper Loader Operator Name Role Phone Unavailable Primary Care Provider Unavailabl e Social History Tobacco Use Types Packs/Day Years Used Date Smoking Tobacco: Never Assessed Sex and Gender Information Value Date Recorded Sex Assigned at Not on file Legal Sex Male 10:16 AM EDT Gender Identity Not on file Sexual Orientation Not on file Plan of Treatment Health Maintenance Due Date Last Done Comments Hepatitis B Vaccine (1 of 3 - 19+ 3-dose series) 2006 Influenza Vaccine (Season Ended) 2025 Pneumococcal Vaccine: Peds ( 0 to 5 Years) and At-Risk Patients (6 to 49 Years) Aged Out No longer eligible b ased on patient's age to complete this topic Insurance Medicaid
--- OUTSIDE RECORDS SUMMARY | 2024-10-25 15:28 | XMS_ITS | Clinical Summary ---
Author Organization [facility] Address [address] [place] [address] Care Team Providers Care Spike Driver Name Role Phone Cheri Rodriguez MD Primary Care Provider Lon ilshanelle Surgical History Surgery Date Site/Laterality Comments ANKLE SURGERY PROCEDURE: HISTORICAL ANKLE SURGERY; COMMENT: internal fixation Family History Medical History Relation Name Comments Other cancer Maternal Grandmother Hypertension Mother Lung cancer Paternal Grandfather Relation Name Status Comments Maternal Grandmother Mother Paternal Grandfather Social History Tobacco Use Types Packs/Day Years Used Date Smoking Tobacco: Never Smokeless Tobacco: Never Alcohol Use Standard Drinks/Week Comments Yes 0 (1 standard drink = 0.6 oz pur e alcohol) Sex and Gender Information Value Date Recorded Sex Assigned at Not on file Legal Sex Male 8:08 AM EST Gender Identity Not on file Sexual Orientation Not on file Obstetrics History Plan of Treatment Health Maintenance Due Date Last Done Comments Hepatitis B Vaccines (1 of 3 - 19+ 3-dose series) 2006 DTaP,Tdap,and Td Vaccines (2 - Td or Tdap) 06/21/2015 06/21/2005 Cholesterol Screening (Lipid Panel) 05/24/2022 Depression Screening 05/24/2022 HIV Screening 05/24/2022 Hepatitis C Screening 05/24/2022 Social Influencers of Health Screening 05/24/2022 COVID-19 Vaccine ( - 2023-2 5 season) 2024 Influenza Vaccine (Season Ended) 2025 HIB Vaccines Aged Out No longer eligi ble based on patient's age to complete this topic HPV Vaccines Aged Out No longer eligi ble based on patient's age to complete this topic Hepatitis A Vaccines Aged Out No long er eligible based on patient's age to complete this topic IPV Vaccines Aged Out No longer eligi ble based on patient's age to complete this topic MMR Vaccines Aged Out No longer eligi ble based on patient's age to complete this topic Meningococcal ACWY Vaccine Aged Out N o longer eligible based on patient's age to complete this topic Meningococcal B Vaccine Aged Out No l onger eligible based on patient's age to complete this topic Pneumococcal Vaccine: Pediat rics (0 to 5 Years) and At-Risk Patients (6 to 64 Years) Aged Out No longer eligi ble based on patient's age to complete this topic RSV Immunization Patients Un kishan 20 months Aged Out No longer eligible b ased on patient's age to complete this topic Varicella Vaccines Aged Out No longer eligible based on patient's age to complete this topic Care Teams Spike Driver Relationship Specialty Start Date End Date Cheri Rodriguez MD PCP - General Internal Medicine 09/13/12
== END 2024-10-25 15:08 | disposition home or self-care (01) ==
LOC: HO.HCC 14:17
PROVIDERS: PCP Internal Medicine; Visit Provider Internal Medicine
DX: F10.20 Alcohol dependence, uncomplicated (principal)
CPT/HCPCS: 99213

== ENCOUNTER → 2024-10-25 14:16 | Outpatient (BNVA) | payer OTHER, SELFPAY | PROVIDERS: PCP Internal Medicine; Visit Provider Internal Medicine | DX: F10.20 Alcohol dependence, uncomplicated (principal); Z51.81 Encounter for therapeutic drug level monitoring | CPT/HCPCS: 80307; 99212 ==

== ENCOUNTER 2024-11-24 13:10 | Outpatient (AMB) | payer OTHER, SELFPAY ==
--- OUTSIDE RECORDS SUMMARY | 2024-11-24 13:12 | XMS_ITS | Clinical Summary ---
Author Organization [facility] Address [address] [place] [address] Care Team Providers Care Compliance Lead Name Role Phone Cheri Rodriguez MD Primary [...] age to complete this topic Care Teams Compliance Lead Relationship Specialty Start Date End Date Cheri Rodriguez MD PCP - General Internal Medicine 09/13/12
--- NOTE | 2024-11-24 13:19 | A.OFFVIS_ITS ---
Intake Visit Reasons: MAT Allergies No Known Allergies Allergy (Verified 11/24/24 13:20) HPI HPI MAT: Details: He is anxious today. He said he needs a ride. He is scratching himself and washing his face in sink. He admits to cocaine use within last 3 days. [facility] Medical History Alcohol use disorder Compartment syndrome GERD (gastroesophageal reflux disease) Opioid use disorder Left arm pain Insomnia RISHABH (generalized anxiety disorder) Moderate recurrent major depression Chronic GERD Abdominal pain Class 1 obesity with body mass index (BMI) of 31.0 to 31.9 in adult Surgical History History of surgery on wrist History of ankle surgery Family History Father No problems noted. Mother Anxiety and depression Mental health disorder Social History Housing: Apartment Alcohol intake: former Patient Tobacco Use Status: Former Tobacco user Tobacco use type: Cigarette e-Cigarette/Vaping Use: Never Used Second Hand Smoke Exposure: No service: No Current occupational status: unemployed Cognitive needs: No Hearing needs: No Vision needs: No Review of Systems Const All systems reviewed & are unremarkable except as noted in HPI and below Assessment & Plan Assessment & Plan (1) Alcohol use disorder, moderate, dependence: Comment: he denies alcohol use anxiety may be due to cocaine Code(s): F10.20 - Alcohol dependence, uncomplicated Category: Medical Plan: Next visit in one month. One months supply Suboxone. (2) Opioid use disorder: Code(s): F11.90 - Opioid use, unspecified, uncomplicated Category: Medical Plan na Medications: New buprenorphine-naloxone 8-2 mg (Suboxone) 1 film sublingual BID 60 ea 0RF 30 days Coding Level of Care Code Est Pt Level 3 (49968) Diagnoses Alcohol use disorder, moderate, dependence F10.20 Opioid use disorder F11.90
== END 2024-11-24 13:52 | disposition home or self-care (01) ==
LOC: HO.HCC 13:10
PROVIDERS: PCP Internal Medicine; Visit Provider Internal Medicine
DX: F10.20 Alcohol dependence, uncomplicated (principal); F11.90 Opioid use, unspecified, uncomplicated
CPT/HCPCS: 99213

== ENCOUNTER → 2024-11-24 13:10 | Outpatient (BNVA) | payer OTHER, SELFPAY | PROVIDERS: PCP Internal Medicine; Visit Provider Internal Medicine | DX: F11.20 Opioid dependence, uncomplicated (principal); F10.20 Alcohol dependence, uncomplicated; Z79.899 Other long term (current) drug therapy | CPT/HCPCS: 99212 ==

== ENCOUNTER 2024-12-20 13:57 | Outpatient (AMB) | payer OTHER, SELFPAY ==
--- OUTSIDE RECORDS SUMMARY | 2024-12-20 14:31 | XMS_ITS | Clinical Summary ---
Author Organization [facility] Address [address] [place] [address] Care Team Providers Care Fence Installer Foreman Name Role Phone Cheri Rodriguez MD Primary [...] age to complete this topic Care Teams Fence Installer Foreman Relationship Specialty Start Date End Date Cheri Rodriguez MD PCP - General Internal Medicine 09/13/12
--- OUTSIDE RECORDS SUMMARY | 2024-12-20 14:31 | XMS_ITS | Clinical Summary ---
Author Organization [facility] Facility Address [address] [address] Care Team Providers Care Top Lift Cutter Name Role Phone Unavailable Primary Care Provider [...]
--- NOTE | 2024-12-20 17:40 | A.OFFVISCC_ITS ---
Intake Visit Reasons: MAT Allergies No Known Allergies Allergy (Verified 11/24/24 13:20) HPI Comments Details: He has no concerns. He takes Suboxone Physical Exam Const General: cooperative Results AMB 14 Panel Urine Drug Screen Urine Marijuana (THC) Positive Last Edit by Brianna Perez RN on 12/20/24 17: 41 Urine Cocaine Positive Last Edit by Brianna Perez RN on 12/20/24 17:41 Urine Morphine Negative Last Edit by Brianna Perez RN on 12/20/24 17:41 Urine Methamphetamine Negative Last Edit by Brianna Perez RN on 12/20/24 17: 41 Urine Amphetamine Negative Last Edit by Brianna Perez RN on 12/20/24 17:41 Urine Benzodiazepine Negative Last Edit by Brianna Perez RN on 12/20/24 17:4 1 Urine Barbiturates Negative Last Edit by Brianna Perez RN on 12/20/24 17:41 Urine Methadone Negative Last Edit by Brianna Perez RN on 12/20/24 17:41 Urine Buprenorphine Positive Last Edit by Brianna Perez RN on 12/20/24 17:41 Urine Tricyclic Antidepressant Negative Last Edit by Brianna Perez RN on 12/20/24 17:41 Urine MDMA Negative Last Edit by Brianna Perez RN on 12/20/24 17:41 Urine Oxycodone Negative Last Edit by Brianna Perez RN on 12/20/24 17:41 Urine Phencyclidine Negative Last Edit by Brianna Perez RN on 12/20/24 17:41 Urine Propoxyphene Negative Last Edit by Brianna Perez RN on 12/20/24 17:41 Results Reviewed Results Reviewed: Laboratory Last Values POC Urine Buprenorphine Positive 12/20/24 17:39 POC Urine Morphine Negative 12/20/24 17:39 POC Urine Oxycodone Negative 12/20/24 17:39 POC Urine Methadone Negative 12/20/24 17:39 POC Urine Propoxyphene Negative 12/20/24 17:39 POC Urine Barbiturates Negative 12/20/24 17:39 POC U Tricyclic Antidpr Negative 12/20/24 17:39 POC Urine PCP Negative 12/20/24 17:39 POC Ur Amphetamines Negative 12/20/24 17:39 POC Ur Methamphetamine Negative 12/20/24 17:39 POC Urine MDMA Negative 12/20/24 17:39 POC Ur Benzodiazepine Negative 12/20/24 17:39 POC Urine Cocaine Positive 12/20/24 17:39 POC Ur Marijuana (THC) Positive 12/20/24 17:39 PFSH Medical History Alcohol use disorder Compartment syndrome GERD (gastroesophageal reflux disease) Opioid use disorder Left arm pain Insomnia RISHABH (generalized anxiety disorder) Moderate recurrent major depression Chronic GERD Abdominal pain Class 1 obesity with body mass index (BMI) of 31.0 to 31.9 in adult Surgical History History of surgery on wrist History of ankle surgery Family History Father No problems noted. Mother Anxiety and depression Mental health disorder Social History Housing: Apartment Alcohol intake: former Patient Tobacco Use Status: Former Tobacco user Tobacco use type: Cigarette e-Cigarette/Vaping Use: Never Used Second Hand Smoke Exposure: No service: No Current occupational status: unemployed Cognitive needs: No Hearing needs: No Vision needs: No Assessment & Plan Assessment & Plan (1) Opioid use disorder: Code(s): F11.90 - Opioid use, unspecified, uncomplicated Category: Medical (2) Alcohol use disorder, moderate, dependence: Comment: he denies alcohol use anxiety may be due to cocaine Code(s): F10.20 - Alcohol dependence, uncomplicated Category: Medical Plan: See as scheduled. Plan vivitrol Orders: Orders AMB 14 Panel Urine Drug Screen 12/20/24 F10.20 - Alcohol dependence, uncomplicated Medications: New acamprosate 666 mg (2 x 333 mg) PO TID 180 tabs 5RF 30 days buprenorphine-naloxone 8-2 mg (Suboxone) 1 film sublingual BID 60 ea 0RF 30 days
== END 2024-12-20 14:20 | disposition home or self-care (01) ==
LOC: HO.HCC 13:57
PROVIDERS: PCP Internal Medicine; Visit Provider Internal Medicine
DX: F10.20 Alcohol dependence, uncomplicated (principal)
CPT/HCPCS: 99213

== ENCOUNTER → 2024-12-20 13:57 | Outpatient (BNVA) | payer OTHER, SELFPAY | PROVIDERS: PCP Internal Medicine; Visit Provider Internal Medicine | DX: F10.20 Alcohol dependence, uncomplicated (principal); F11.90 Opioid use, unspecified, uncomplicated | CPT/HCPCS: 80307; 99212 ==

== ENCOUNTER 2025-01-19 10:53 | Outpatient (AMB) | payer OTHER, SELFPAY ==
--- OUTSIDE RECORDS SUMMARY | 2025-01-19 11:02 | XMS_ITS | Clinical Summary ---
Author Organization [facility] Facility Address [address] [address] Care Team Providers Care Scanning Tech Name Role Phone Unavailable Primary Care Provider [...] - 19+ 3-dose series) 2006 Influenza Vaccine (#1) 2025 Pneumococcal Vaccine: Peds ( 0 to 5 Years) and At-Risk Patients (6 to 49 Years) Aged Out No longer eligible b ased on patient's age to complete this topic Insurance Medicaid
--- OUTSIDE RECORDS SUMMARY | 2025-01-19 11:02 | XMS_ITS | Clinical Summary ---
Author Organization [facility] Address [address] [place] [address] Care Team Providers Care Children'S Tutor Nursery Name Role Phone Cheri Rodriguez MD Primary [...] 06/21/2015 06/21/2005 Cholesterol Screening (Lipid Panel) 05/24/2022 HIV Screening 05/24/2022 Hepatitis C Screening 05/24/2022 Social Influencers of Health Screening 05/24/2022 COVID-19 Vaccine (1 - 2023-2 5 season) 2024 Depression Screening 06/21/2024 Influenza Vaccine (#1) 2025 HIB Vaccines Aged Out No longer [...] to 49 Years) Aged Out No longer eligi ble based on patient's age to complete this topic RSV Immunization Patients Un kishan 20 months Aged Out No longer eligible b ased on patient's age to complete this topic Varicella Vaccines Aged Out No longer eligible based on patient's age to complete this topic Care Teams [facility] Relationship Specialty Start Date End Date Cheri Rodriguez MD PCP - General Internal Medicine 09/13/12
--- NOTE | 2025-01-19 14:48 | MHC.AM.SUB ---
Intake Visit Reasons: MAT Allergies No Known Allergies Allergy (Verified 11/24/24 13:20) HPI HPI MAT: Details: He is doing well He has no complaints He is grateful for Suboxone for OUD and Campral which he likes very much for AUD. Review of Systems Const All systems reviewed & are unremarkable except as noted in HPI and below Physical Exam Const General: cooperative [facility] Medical History Alcohol use disorder Compartment syndrome GERD (gastroesophageal reflux disease) Opioid use disorder Left arm pain Insomnia RISHABH (generalized anxiety disorder) Moderate recurrent major depression Chronic GERD Abdominal pain Class 1 obesity with body mass index (BMI) of 31.0 to 31.9 in adult Surgical History History of surgery on wrist History of ankle surgery Family History Father No problems noted. Mother Anxiety and depression Mental health disorder Social History Housing: Apartment Alcohol intake: former Patient Tobacco Use Status: Former Tobacco user Tobacco use type: Cigarette e-Cigarette/Vaping Use: Never Used Second Hand Smoke Exposure: No service: No Current occupational status: unemployed Cognitive needs: No Hearing needs: No Vision needs: No Assessment & Plan Assessment & Plan (1) Opioid use disorder: Comment: He is doing well Code(s): F11.90 - Opioid use, unspecified, uncomplicated Category: Medical Plan: Continue current medication Suboxone and Campral. See as scheduled. Medications: New buprenorphine-naloxone 8-2 mg (Suboxone) 1 film sublingual BID 60 ea 0RF 30 days
== END 2025-01-19 12:55 | disposition home or self-care (01) ==
LOC: HO.HCC 10:54
PROVIDERS: PCP Internal Medicine; Visit Provider Internal Medicine
DX: F11.90 Opioid use, unspecified, uncomplicated (principal)
CPT/HCPCS: 99213

== ENCOUNTER → 2025-01-19 10:53 | Outpatient (BNVA) | payer OTHER, SELFPAY | PROVIDERS: PCP Internal Medicine; Visit Provider Internal Medicine | DX: F11.90 Opioid use, unspecified, uncomplicated (principal); F10.90 Alcohol use, unspecified, uncomplicated | CPT/HCPCS: 99212 ==

== ENCOUNTER 2025-02-16 14:05 | Outpatient (AMB) | payer OTHER, SELFPAY ==
--- NOTE | 2025-02-16 14:06 | A.OFFVIS_ITS ---
Vital Signs 02/16/25 14:09 Height 5 ft 9 in Weight 193 lb BMI 28.5 Pulse 113 H Pulse Source Pulse Oximeter Pulse Oximetry (%) 96 Oxygen Delivery Method Room Air Intake Visit Reasons: MAT Allergies No Known Allergies Allergy (Verified 02/16/25 14:09) HPI HPI MAT: Details: He has been doing well and has no complaints [facility] Medical History Alcohol use disorder Compartment syndrome GERD (gastroesophageal reflux disease) Opioid use disorder Left arm pain Insomnia RISHABH (generalized anxiety disorder) Moderate recurrent major depression Chronic GERD Abdominal pain Class 1 obesity with body mass index (BMI) of 31.0 to 31.9 in adult Surgical History History of surgery on wrist History of ankle surgery Family History Father No problems noted. Mother Anxiety and depression Mental health disorder Social History Housing: Apartment Alcohol intake: former Patient Tobacco Use Status: Former Tobacco user Tobacco use type: Cigarette e-Cigarette/Vaping Use: Never Used Second Hand Smoke Exposure: No service: No Current occupational status: unemployed Cognitive needs: No Hearing needs: No Vision needs: No Review of Systems Const All systems reviewed & are unremarkable except as noted in HPI and below Physical Exam Vital Signs: Last Vital Signs Pulse 113 H 02/16/25 14:09 Pulse Ox 96 02/16/25 14:09 Oxygen Delivery Method Room Air 02/16/25 14:09 BMI result Body Mass Index 28.5 Assessment & Plan Assessment & Plan (1) Opioid use disorder: Comment: He is doing well Code(s): F11.90 - Opioid use, unspecified, uncomplicated Category: Medical Plan: Continue current care. See as scheduled. Medications: New buprenorphine-naloxone 8-2 mg (Suboxone) 1 film sublingual BID 60 ea 0RF 30 days Coding Level of Care Code Est Pt Level 3 (95130) Diagnoses Opioid use disorder F11.90
--- OUTSIDE RECORDS SUMMARY | 2025-02-16 14:08 | XMS_ITS | Clinical Summary ---
Author Organization [facility] Facility Address [address] [address] Care Team Providers Care Director Dermatology Name Role Phone Unavailable Primary Care Provider [...]
--- OUTSIDE RECORDS SUMMARY | 2025-02-16 14:08 | XMS_ITS | Clinical Summary ---
Author Organization [facility] Address [address] [place] [address] Care Team Providers Care Mechanical Developer Prover Name Role Phone Cheri Rodriguez MD Primary [...] age to complete this topic Care Teams Mechanical Developer Prover Relationship Specialty Start Date End Date Cheri Rodriguez MD PCP - General Internal Medicine 09/13/12
[2025-02-16 14:09] VITALS: PULSE 113; O2SAT 96; BMI 28.5
== END 2025-02-16 14:39 | disposition home or self-care (01) ==
LOC: HO.HCC 14:06
PROVIDERS: PCP Internal Medicine; Visit Provider Internal Medicine
DX: F11.90 Opioid use, unspecified, uncomplicated (principal)
CPT/HCPCS: 99213

== ENCOUNTER → 2025-02-16 14:05 | Outpatient (BNVA) | payer OTHER, SELFPAY | PROVIDERS: PCP Internal Medicine; Visit Provider Internal Medicine | DX: F11.20 Opioid dependence, uncomplicated (principal); F10.20 Alcohol dependence, uncomplicated; Z79.899 Other long term (current) drug therapy | CPT/HCPCS: 99212 ==

== ENCOUNTER 2025-03-21 12:51 | Outpatient (AMB) | payer OTHER, SELFPAY ==
--- NOTE | 2025-03-21 12:55 | MHC.OFFVIS ---
Vital Signs 03/21/25 12:56 Height 5 ft 9 in Intake Visit Reasons: MAT Allergies No Known Allergies Allergy (Verified 03/21/25 12:57) HPI HPI MAT: Details: History of Present Illness The patient is a 39-year-old male presenting with opioid use disorder. He reports being stable on a regimen of Suboxone 8/2 mg twice daily. The patient states experiencing no current side effects or complications associated with his medication, such as constipation or depression. He describes being well with no concerns about his opioid use disorder management. Review of Systems - Gastrointestinal: Denies constipation - Psychiatric: Denies depression Physical Exam Results Plan Patient was informed and verbally consented to the use of an ambient scribe for clinic note documentation during this visit. 1. Opioid use, unspecified, uncomplicated F11.90 The patient is maintained on Suboxone 8/2 mg BID, showing no adverse effects such as depression or constipation. Ongoing treatment will include routine prescription refills. Additionally, simvastatin 20 mg/day with provisions for one refill is also prescribed, albeit for unrelated issues. Discussion Notes I discussed with the patient his ongoing treatment plan for opioid use disorder, which includes the continued use of Suboxone 8/2 mg, taken twice daily. The patient consented to this treatment and expressed no complaints or symptoms related to opioid use or the treatment itself. We reviewed the benefits of the medication in managing opioid dependency. I also informed the patient of the prescription for simvastatin, 20 mg daily, with a refill for lipid management, and he was agreeable to this addition to his regimen. Medical Decision Making Given the patient?s current stable condition with his opioid use disorder medication regimen of Suboxone 8/2 mg BID, I determined that the continuation of the current prescription is appropriate. The absence of complaints or adverse symptoms such as constipation or depressive episodes supports this decision. Additionally, the patient agreed to the use of [employer] technology for the visit, which underscores his consent to participate in his care actively. I also prescribed simvastatin for lipid management based on routine assessments indicating a need for this. Patient Instructions - Continue taking Suboxone 8/2 mg twice daily as directed. - Fill and take the simvastatin prescription, 20 mg once daily. - Monitor for any new symptoms or concerns, and report them promptly. - Plan a follow-up visit in two months as scheduled. - Ensure to adhere to the medication regimen as discussed. [facility] Medical History Alcohol use disorder Compartment syndrome GERD (gastroesophageal reflux disease) Opioid use disorder Left arm pain Insomnia RISHABH (generalized anxiety disorder) Moderate recurrent major depression Chronic GERD Abdominal pain Class 1 obesity with body mass index (BMI) of 31.0 to 31.9 in adult Surgical History History of surgery on wrist History of ankle surgery Family History Father No problems noted. Mother Anxiety and depression Mental health disorder Social History Housing: Apartment Alcohol intake: former Patient Tobacco Use Status: Former Tobacco user Tobacco use type: Cigarette e-Cigarette/Vaping Use: Never Used Second Hand Smoke Exposure: No service: No Current occupational status: unemployed Cognitive needs: No Hearing needs: No Vision needs: No Assessment & Plan Assessment & Plan (1) Opioid use disorder: Comment: He is doing well Code(s): F11.90 - Opioid use, unspecified, uncomplicated Category: Medical Plan: na Plan na Medications: New buprenorphine-naloxone 8-2 mg (Suboxone) 1 film sublingual BID 60 ea 0RF 30 days Coding Level of Care Code Est Pt Level 3 (26576) Diagnoses Opioid use disorder F11.90
--- OUTSIDE RECORDS SUMMARY | 2025-03-21 14:09 | XMS_ITS | Clinical Summary ---
Author Organization [facility] Address [address] [place] [address] Care Team Providers Care At Risk Specialist Name Role Phone Cheri Rodriguez MD Primary [...] of 3 - 19+ 3-dose series) 2006 HPV Vaccines (1 - 3-dose SCD M series) 2014 DTaP,Tdap,and Td Vaccines (2 - Td or Tdap) 06/21/2015 06/21/2005 Cholesterol Screening (Lipid Panel) 05/24/2022 HIV Screening 05/24/2022 Hepatitis C Screening 05/24/2022 Social Influencers of Health Screening 05/24/2022 Depression Screening 06/21/2024 COVID-19 Vaccine ( - 2023-2 5 season) 2025 Influenza Vaccine (#1) 2025 RSV Immunization Adult Patie nts (1 - 1-dose 75+ series) 2062 HIB Vaccines Aged Out No longer eligi [...] age to complete this topic Care Teams At Risk Specialist Relationship Specialty Start Date End Date Cheri Rodriguez MD PCP - General Internal Medicine 09/13/12
--- OUTSIDE RECORDS SUMMARY | 2025-03-21 14:09 | XMS_ITS | Clinical Summary ---
Author Organization [facility] Facility Address [address] [address] Care Team Providers Care Therapist Speech Name Role Phone Unavailable Primary Care Provider [...]
== END 2025-03-21 13:25 | disposition home or self-care (01) ==
LOC: HO.HCC 12:51
PROVIDERS: PCP Internal Medicine; Visit Provider Internal Medicine
DX: F11.90 Opioid use, unspecified, uncomplicated (principal)
CPT/HCPCS: 99213

== ENCOUNTER → 2025-03-21 12:51 | Outpatient (BNVA) | payer OTHER, SELFPAY | PROVIDERS: PCP Internal Medicine; Visit Provider Internal Medicine | DX: F11.20 Opioid dependence, uncomplicated (principal) | CPT/HCPCS: 99212 ==

== ENCOUNTER 2025-04-23 13:09 | Outpatient (AMB) | payer OTHER, SELFPAY ==
--- NOTE | 2025-04-23 13:05 | MHC.OFFVIS ---
Vital Signs 04/23/25 13:08 Height 5 ft 9 in Weight 194 lb BMI 28.6 Pulse 110 H Pulse Source Pulse Oximeter Pulse Oximetry (%) 98 Oxygen Delivery Method Room Air Intake Visit Reasons: MAT Allergies No Known Allergies Allergy (Verified 04/23/25 13:08) HPI Comments Details: History of Present Illness The patient is a 39-year-old male presenting with a follow-up for management of opioid use disorder and alcohol use disorder. He has been compliant with his Suboxone (Cevoxone) 8/2 mg regimen, although he recently ran out due to a scheduling mix-up, leading him to experience slight withdrawal. He borrowed two strips from someone to mitigate withdrawal symptoms. His medication adherence and management of withdrawal symptoms are closely monitored, especially with recent changes in his socio-environmental situation after moving residences. Previously living with his mother, he has now relocated to a friend's residence on [address]. He reports no issues accessing the [facility]s public transportation for appointments. A future appointment is planned with his primary care provider for April. He is engaged with a counselor and will continue in his recovery program. The patient notes increased anxiety, managed with hydroxyzine, for which he intends to obtain further prescriptions from his primary doctor. His alcohol consumption had increased, but he ceased alcohol intake over the past weekend, following a tapering method to avoid withdrawal. Current considerations include potential screenings for HIV and Hepatitis C, acknowledging the patient's stable vital signs and denial of food insecurity. Review of Systems - Constitutional: Denies fever, fatigue. - Gastrointestinal: Denies constipation. - Psychological: Reports anxiety; denies withdrawal symptoms, apart from slight opioid withdrawal during medication lapse. - Neurological: Denies headaches, dizziness. - Substance Use: Reports recent cessation of increased alcohol intake. Physical Exam - Vitals- Vital signs stable. Results Plan Patient was informed and verbally consented to the use of an ambient scribe for clinic note documentation during this visit. 1. Opioid use, unspecified, uncomplicated F11.90 Continue Suboxone 8/2 mg BID with a refill issued to address recent interruptions. A follow-up appointment is scheduled for one month to ensure medication adherence and address any potential issues due to changes in living situations. 2. Alcohol Use Disorder The patient?s recent cessation of alcohol consumption after tapering will be supported through counseling. A follow-up in one month will monitor for ongoing abstinence and explore the potential need for pharmacotherapy if needed. Discussion Notes During the consultation, I discussed with the patient the management plan for both opioid use disorder and alcohol use disorder. We addressed the recent gap in opioid treatment and developed a strategy to prevent future occurrences. The patient expressed understanding and consented to the continuation and monitoring approach. He was informed of the next steps involving regular follow-up and potential labs. The patient acknowledged the lifestyle changes to maintain abstinence from alcohol, and I emphasized the importance of maintaining regular communication with his primary care provider and counselor. Medical Decision Making Considering the patient's history of opioid use disorder with recent shortcomings in medication adherence due to scheduling issues, the current strategy focuses on resuming Suboxone with vigilant monitoring. The patient's withdrawal symptoms highlight the necessity for consistent medication management. For alcohol use disorder, despite a recent surge in consumption, the patient's ability to taper off independently demonstrates commitment to sobriety, necessitating periodic assessments to support this trend. The clinical approach will integrate psychosocial support and foresee any relapse triggers due to residential changes. Patient Instructions - Continue taking Suboxone as prescribed. - Follow up with primary care provider mid-April as scheduled. - Remain engaged with counseling and motor coach chauffeur sessions. - Avoid alcohol consumption and discuss any related symptoms with your counselor. - Report any new or worsening symptoms to your healthcare team. - See me back in one month for follow-up. [facility] Medical History Alcohol use disorder Compartment syndrome GERD (gastroesophageal reflux disease) Opioid use disorder Left arm pain Insomnia RISHABH (generalized anxiety disorder) Moderate recurrent major depression Chronic GERD Abdominal pain Class 1 obesity with body mass index (BMI) of 31.0 to 31.9 in adult Surgical History History of surgery on wrist History of ankle surgery Family History Father No problems noted. Mother Anxiety and depression Mental health disorder Social History Housing: Apartment Alcohol intake: former Patient Tobacco Use Status: Former Tobacco user Tobacco use type: Cigarette e-Cigarette/Vaping Use: Never Used Second Hand Smoke Exposure: No service: No Current occupational status: unemployed Cognitive needs: No Hearing needs: No Vision needs: No Physical Exam Vital Signs: Last Vital Signs Pulse 110 H 04/23/25 13:08 Pulse Ox 98 04/23/25 13:08 Oxygen Delivery Method Room Air 04/23/25 13:08 BMI result Body Mass Index 28.6 Assessment & Plan Assessment & Plan (1) Opioid use disorder: Comment: He is doing well Code(s): F11.90 - Opioid use, unspecified, uncomplicated Category: Medical Plan: as above (2) Alcohol use disorder, moderate, dependence: Comment: he denies alcohol use Code(s): F10.20 - Alcohol dependence, uncomplicated Category: Medical Plan: na (3) Moderate recurrent major depression: Code(s): F33.1 - Major depressive disorder, recurrent, moderate Category: Medical Plan: na (4) RISHABH (generalized anxiety disorder): Comment: Anxious- Code(s): F41.1 - Generalized anxiety disorder Category: Medical Plan as above Coding Level of Care Code Est Pt Level 3 (37787) Diagnoses Opioid use disorder F11.90 Alcohol use disorder, moderate, dependence F10.20 Moderate recurrent major depression F33.1 RISHABH (generalized anxiety disorder) F41.1
[2025-04-23 13:08] VITALS: PULSE 110; O2SAT 98; BMI 28.6
== END 2025-04-23 13:28 | disposition home or self-care (01) ==
LOC: HO.HCC 13:09
PROVIDERS: PCP Internal Medicine; Visit Provider Internal Medicine
DX: F11.90 Opioid use, unspecified, uncomplicated (principal); F10.20 Alcohol dependence, uncomplicated; F33.1 Major depressive disorder, recurrent, moderate; F41.1 Generalized anxiety disorder
CPT/HCPCS: 99213

== ENCOUNTER → 2025-04-23 13:09 | Outpatient (BNVA) | payer OTHER, SELFPAY | PROVIDERS: PCP Internal Medicine; Visit Provider Internal Medicine | DX: F10.20 Alcohol dependence, uncomplicated (principal); F11.90 Opioid use, unspecified, uncomplicated; F33.1 Major depressive disorder, recurrent, moderate; F41.1 Generalized anxiety disorder | CPT/HCPCS: 99212 ==

== ENCOUNTER 2025-05-23 14:45 | Outpatient (AMB) | payer OTHER, SELFPAY ==
[2025-05-23 14:53] VITALS: BP 128/72; PULSE 126; O2SAT 97; BMI 29.1
--- NOTE | 2025-05-23 14:53 | MHC.OFFVIS ---
Vital Signs 05/23/25 14:53 Height 5 ft 9 in Weight 197 lb BMI 29.1 BP 128/72 Blood Pressure Location Lt brachial Position Sitting Pulse 126 H Pulse Source Pulse Oximeter Pulse Oximetry (%) 97 Intake Visit Reasons: MAT Allergies No Known Allergies Allergy (Verified 05/23/25 14:54) HPI Comments Details: History of Present Illness The patient is a 40 year old male presenting for follow-up and management of opioid use disorder. He reports doing well and takes buprenorphine/naloxone 8/2 mg twice daily. He also uses trazodone for sleep and denies any concerns with constipation or depression. Results [facility] Medical History (Updated 05/21/25 @ 13:02 by Mahendra Tenorio MD) Encounter for screening for malignant neoplasm of intestinal tract, unspecified Alcohol use disorder Compartment syndrome GERD (gastroesophageal reflux disease) Opioid use disorder Left arm pain Insomnia RISHABH (generalized anxiety disorder) Moderate recurrent major depression Chronic GERD Abdominal pain Class 1 obesity with body mass index (BMI) of 31.0 to 31.9 in adult Surgical History History of surgery on wrist History of ankle surgery Family History Father No problems noted. Mother Anxiety and depression Mental health disorder Social History Housing: Apartment Alcohol intake: former Patient Tobacco Use Status: Former Tobacco user Tobacco use type: Cigarette e-Cigarette/Vaping Use: Never Used Second Hand Smoke Exposure: No service: No Current occupational status: unemployed Cognitive needs: No Hearing needs: No Vision needs: No Review of Systems Narrative Review of Systems - Neurological: Uses trazodone for sleep. - Gastrointestinal: Denies constipation. - Psychiatric: Denies depression. Physical Exam Exam Exam: Physical Exam - Vitals: Stable. Vital Signs: Last Vital Signs Pulse 126 H 05/23/25 14:53 BP 128/72 05/23/25 14:53 Pulse Ox 97 05/23/25 14:53 BMI result Body Mass Index 29.1 Assessment & Plan Assessment & Plan (1) Opioid use disorder: Comment: He is doing well Code(s): F11.90 - Opioid use, unspecified, uncomplicated Category: Medical (2) Alcohol use disorder, moderate, dependence: Comment: he denies alcohol use Code(s): F10.20 - Alcohol dependence, uncomplicated Category: Medical Plan Plan Patient was informed and verbally consented to the use of an ambient scribe for clinic note documentation during this visit. 1. Opioid use, unspecified, uncomplicated F11.90 The patient is doing well with his opioid use disorder. He will continue buprenorphine-naloxone 8/2 mg, 1 film twice daily, with a prescription written for 60 films for 30 days with no refills. A urine toxicology screen will be checked at the next visit. He will follow up in one month and should call with any concerns before then. 2. Insomnia, unspecified G47.00 To manage sleep, a prescription for trazodone 100 mg tablets to be taken by mouth at bedtime as needed was provided. The prescription is for 60 tablets with five refills. Discussion Notes I assessed that the patient is stable regarding his opioid use disorder. We will continue his current buprenorphine-naloxone regimen and will check a urine toxicology screen at his next visit. A prescription for trazodone was also provided for sleep. He is scheduled to return for a follow-up visit in one month and was instructed to contact us if any issues arise before then. Medical Decision Making The patient, Mark Barrow, is seen for a follow-up visit for opioid use disorder and is doing well. His vital signs are stable, and he denies any concerns with constipation or depression. Given his stability, the decision is to continue his current regimen of buprenorphine-naloxone 8/2 mg BID. A prescription for trazodone 100 mg was also provided for sleep management. Monitoring will continue with a urine toxicology screen planned for the next visit. Follow-up is scheduled in one month, which is appropriate for his stable condition. Patient Instructions - Continue to take one film of buprenorphine-naloxone 8/2 mg twice a day. - You may take one tablet of trazodone 100 mg at bedtime as needed for sleep. - We will check a urine sample at your next visit. - Please return for a follow-up appointment in one month. - Call the office with any concerns you may have before your next visit. Medications: New buprenorphine-naloxone 8-2 mg (Suboxone) 1 film sublingual BID 60 ea 0RF 30 days Changed From trazodone 50 mg PO BEDTIME 30 days 30 tabs 5RF To trazodone 100 mg (2 x 50 mg) PO BEDTIME 60 tabs 5RF 30 days Coding Level of Care Code Est Pt Level 3 (49596) Diagnoses Opioid use disorder F11.90 Alcohol use disorder, moderate, dependence F10.20
--- OUTSIDE RECORDS SUMMARY | 2025-05-23 17:38 | XMS_ITS | Clinical Summary ---
Author Organization [facility] Address [address] [place] [address] Care Team Providers Care Rest Room Maid Name Role Phone Cheri Rodriguez MD Primary [...] Depression Screening 06/21/2024 COVID-19 Vaccine ( - 2024-2 6 season) 2025 Influenza Vaccine (#1) 2025 RSV [...] age to complete this topic Care Teams Rest Room Maid Relationship Specialty Start Date End Date Cheri Rodriguez MD PCP - General Internal Medicine 09/13/12
== END 2025-05-23 15:17 | disposition home or self-care (01) ==
LOC: HO.HCC 14:45
PROVIDERS: PCP Internal Medicine; Visit Provider Internal Medicine
DX: F11.90 Opioid use, unspecified, uncomplicated (principal); F10.20 Alcohol dependence, uncomplicated
CPT/HCPCS: 99213

== ENCOUNTER → 2025-05-23 14:45 | Outpatient (BNVA) | payer OTHER, SELFPAY | PROVIDERS: PCP Internal Medicine; Visit Provider Internal Medicine | DX: F10.20 Alcohol dependence, uncomplicated (principal); F11.90 Opioid use, unspecified, uncomplicated; G47.00 Insomnia, unspecified; Z79.899 Other long term (current) drug therapy | CPT/HCPCS: 99212 ==

== ENCOUNTER 2025-06-07 16:24 | Outpatient (AMB) | payer OTHER, SELFPAY ==
--- NOTE | 2025-06-07 16:27 | A.OFFPC_ITS ---
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 Multiple Needle Stitcher Required: No Accompanied by: Self / Same As Patient Allergies No Known Allergies Allergy (Verified 06/07/25 16:32) Medication List - Last Reconciled 06/09/25 by Mahendra Tenorio MD acamprosate 666 mg (2 x 333 mg) PO TID 30 days buprenorphine-naloxone 8-2 mg (Suboxone) 1 film sublingual BID 30 days hydroxyzine HCl 25 mg PO TID PRN pantoprazole 40 mg PO DAILY 90 days trazodone 100 mg (2 x 50 mg) PO BEDTIME 30 days Tobacco use date assessed: 06/07/25 Dental Screening Dental Screen Date: 06/07/25 Did you have a dental visit in the last 12 months?: No Did you have a dental problem in the last 6 months where you did not have access to dental care?: No Was dental information given to patient?: No HPI HPI Comments 2 History of Present Illness0 Details History of Present Illness The patient is a 40 year old male presenting to establish care, for management of chronic conditions, and for completion of disability paperwork. Alcohol use disorder: The patient self-identifies as an alcoholic and acknowledges he is working on getting sober. currently intoxicated Sequelae of compartment syndrome, right upper extremity: The patient has a history of compartment syndrome of the right arm, which occurred approximately two years ago after falling asleep on it. This required a fasciotomy, and he was in a coma for a week. He reports his right arm has been stuck in a claw-like position for the past two years, and he has had to learn to adjust, such as by using his left hand to hold drinks. He previously received occupational therapy, but it was discontinued about a year ago due to insurance coverage issues. History of bilateral ankle open reduction internal fixation: The patient sustained bilateral ankle injuries in 2009 after falling down stairs, which required surgical repair with placement of metal plates in both ankle ball joints. History of Opioid Use: The patient reports he became addicted to substances, including Percocet, following his arm injury. He states he has not used these substances for about a year. Surgical History: - Fasciotomy of the right arm for compar tment syndrome, approximately 2 years ago. - Bilateral ankle surgery with placement of metal plates in 2009. Social History: - Housing: The patient is currently home less but is staying at a friend's house. - Substance Use: The patient identifies as an alcoholic. He does not smoke cigarettes but uses vape pens. He reports a history of Percocet use but states he has not used in approximately one year. 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 He requires a physician's signature on paperwork to continue receiving welch assistance. Past Medical History - Compartment syndrome of the right arm approximately two years ago, which required a fasciotomy and resulted in a one-week coma. - Bilateral ankle fractures status post- surgical repair with hardware in 2009. - History of subclavian catheter placeme nt. - History of urinary catheter placement. - Alcoholism. - History of opioid use. Health Maintenance - The patient's alcohol use disorder was discussed, and he acknowledged working toward sobriety. - Lab work was ordered to screen for pot ential nutritional deficiencies related to alcohol use, including vitamin B12, folate, and thiamine. external med rec summary This is a 39-year-old male with a significant medical history including daily alcohol use, anxiety, depression, and GERD. On September 20, 2022, he presented to the [facility] after being found down for an unknown period of time with right upper extremity pain, swelling, and profound motor and sensory deficits.?He was found to have acute right upper extremity compartment syndrome.?Initial imaging of the right forearm and shoulder showed significant soft tissue swelling but no acute fractures. Upon admission, the patient was critically ill, requiring intubation and mechanical ventilation. Laboratory studies revealed severe metabolic acidosis, hyperkalemia, rhabdomyolysis, and acute kidney injury (GERALD).?He underwent emergent fasciotomies of all compartments of his right upper extremity on September 20, 2022, followed by a release of the right posterior shoulder the next day.?His hospital course was complex, marked by a near-arrest during surgical induction, ongoing risk for alcohol withdrawal, and the need for intensive care unit management including fentanyl and propofol infusions. Cardiovascular complications arose during his hospitalization. A transthoracic echocardiogram (TTE) on September 22, 2022, was technically difficult but revealed a mobile echodensity in the right ventricle, suspicious for a thrombus or vegetation.?A follow-up TTE with contrast on September 23, 2022, confirmed reduced left and right ventricular systolic function (LVEF 35-45%) and the persistent 1.5 x 1.1 cm mobile echodensity.?By October 05, 2022, his LV systolic function had normalized (LVEF 55-65%), though the echodensity was still thought to be present.?A subsequent transesophageal echocardiogram (TEA) on October 15, 2022, showed normal biventricular function and definitively ruled out any right ventricular mass or thrombus. The patient's acute kidney injury secondary to rhabdomyolysis necessitated renal replacement therapy. A Permacath was inserted for hemodialysis access on October 05, 2022.?His renal function subsequently recovered, and the dialysis catheter was removed on October 26, 2022.?For his right upper extremity wounds, he underwent debridement and split-thickness skin grafting from his right thigh to his forearm and arm on October 28, 2022, with application of a negative pressure wound dressing. Following discharge, the patient was followed by plastic surgery. A visit on December 03, 2022, noted healed skin grafts, but persistent severe functional deficits in the right arm, including complete sensory loss in the hand and significant motor weakness, though some minor motor recovery was observed.?The prognosis for recovery was stated to be slow. He was prescribed occupational therapy and a refill of gabapentin for nerve pain. The patient's course has been complicated by continued severe alcohol use disorder, leading to multiple subsequent emergency department visits for intoxication, altered mental status, and related complaints.?During a visit on February 02, 2024, he presented with an ethanol level of 312 mg/dL and was found to have findings consistent with diffuse liver disease, likely cirrhosis with possible early portal hypertension, including hepatosplenomegaly and hepatic steatosis.?He has eloped from the emergency department on at least two occasions before evaluations could be completed. 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 As of his last follow-up in November 2022, his prescribed medications included gabapentin. He has a history of taking Tylenol, which he found ineffective.?During hospitalizations, he has received numerous medications for sedation, pain control, electrolyte abnormalities, and DVT prophylaxis, including fentanyl, propofol, heparin, and famotidine. [facility] Medical History (Updated 06/09/25 @ 13:53 by Mahendra Tenorio MD) Encounter for screening for malignant neoplasm of intestinal tract, unspecified Alcohol use disorder Compartment syndrome GERD (gastroesophageal reflux disease) Opioid use disorder Left arm pain Insomnia RISHABH (generalized anxiety disorder) Moderate recurrent major depression Chronic GERD Abdominal pain Class 1 obesity with body mass index (BMI) of 31.0 to 31.9 in adult Surgical History History of surgery on wrist History of ankle surgery Family History Father No problems noted. Mother Anxiety and depression Mental health disorder Social History (Updated 06/07/25 @ 16:34 by Kevan Gabriel CMA) Housing: Apartment Alcohol intake: former Patient Tobacco Use Status: Former Tobacco user Tobacco use type: Cigarette e-Cigarette/Vaping Use: Never Used Second Hand Smoke Exposure: No service: No Current occupational status: unemployed Cognitive needs: No Hearing needs: No Vision needs: No Questionnaire PHQ-9 Over the last 2 weeks, how often have you been bothered by any of the following problems? 1. Little interest or pleasure in doing things: several days 2. Feeling down, depressed, or hopeless: several days 3. Trouble falling or staying asleep, or sleeping too much: nearly every day 4. Feeling tired or having little energy: several days 5. Poor appetite or overeating: more than half the days 6. Feeling bad about yourself - or that you are a failure or have let yourself or your family down: several days 7. Trouble concentrating on things, such as reading the newspaper or watching television: several days 8. Moving or speaking so slowly that other people could have noticed. Or the opposite - being so fidgety or restless that you have been moving around a lot more than usual: several days 9. Thoughts that you would be better off or of hurting yourself in some way: not at all Total score: 11 Depression Screening Interpretation: Positive Depression Screening Follow-up: Existing condition, In treatment, Community Mental Health Worker F/U and Follow- up Visit Requested Depression Screening Done: Yes 85050 - PHQ-9 Billing: Yes Source: Developed by Drs. Luiz Darby, Robbie Stafford and colleagues, with an educational karel from [employer]. Thrive Questionnaire Date Thrive assessed: 06/07/25 I am a: Patient What is your living situation today?: I do not have a steady places to live Within the past 12 months, did the food you bought not last and you didn't have the money to get more?: Sometimes True Within the past 12 months, did you worry whether your food would run out before you got money to buy more?: Often true Do you have trouble paying for medicines?: No Do you have trouble getting transportation to medical appointments?: No Do you have trouble paying your heating and electricity bill?: I choose not to answer this question Do you have trouble taking care of your child, family member or friend?: Yes Do you have trouble with day-to-day activities such as bathing, preparing meals, shopping, managing finances, etc.?: I choose not to answer this question Are you currently unemployed and looking for a job?: No Are you interested in more education?: No Please select the resources that you would like help with: Housing/Retirement Currently or been in a relationship where the following occur: No concerns reported THRIVE Score: 3 RISHABH-7 AMB Questionnaire RISHABH-7 Date RISHABH - 7 assessed: 06/07/25 Feeling nervous, anxious, or on edge: 2 = More than half the days Not being able to stop or control worryin = Several days Worrying too much about different things: 1 = Several days Trouble relaxin = Several days Being so restless that it is hard to sit still: 1 = Several days Becoming easily annoyed or irritable: 1 = Several days Feeling afraid as if something awful might happen: 0 = Not at all Total RISHABH-7 score (0-4 normal; 5-9 mild; 10-14 moderate; 15-21 severe): 7 Source: Developed by Drs. Luiz Darby, Robbie Stafford and colleagues, with an educational karel from [employer]. RISHABH-7 Assessment Billing RISHABH-7 Assessment Tool: RISHABH-7 Assessment 98364 Review of Systems Narrative Review of Systems - Musculoskeletal: Reports his right arm is stuck like a claw. - Back: Reports his back feels even worse, though no specifics were provided. 10-point ROS reviewed and negative except as noted in HPI Physical exam (Primary Care) Vital Signs: Last Vital Signs Temp 98.2 F 06/07/25 16:37 Pulse 125 H 06/07/25 16:37 Resp 20 06/07/25 16:37 BP 136/91 H 06/07/25 16:37 Pulse Ox 95 06/07/25 16:37 Oxygen Delivery Method Room Air 06/07/25 16:37 BMI result Body Mass Index 29.3 Tobacco/Smoking Status: Tobacco use Status Tobacco use date assessed 06/07/25 06/07/25 16:39 Patient Tobacco Use Status Former Tobacco user 06/07/25 16:34 Tobacco use type Cigarette 06/07/25 16:34 e-Cigarette/Vaping Use Never Used 06/07/25 16:34 PHQ-9: PHQ-9 Score PHQ-9: Total score 11 06/08/25 07:10 Depression Screening Interpretation: Positive Depression Screening Follow-up: Existing condition, In treatment, Community Mental Health Worker F/U and Follow- up Visit Requested Thrive Assessment: Date of Thrive Assessment Date Thrive assessed 06/07/25 06/07/25 16:39 Currently or been in a relationship where the following occur: No concerns reported Narrative Physical Exam General: Well-appearing, in no acute distress, but patient admits to being an alcoholic and is currently under the influence. Vital signs: Within normal limits. HEENT: Normocephalic, atraumatic. PERRLA, EOMI. Conjunctiva clear, sclera anicteric. Oropharynx clear, mucous membranes moist. TMs intact bilaterally. Neck: Supple, no lymphadenopathy, no thyromegaly, no JVD or carotid bruits. Cardiovascular: RRR, normal S1/S2, no murmurs, rubs, or gallops. Peripheral pulses 2+ and symmetric. No edema. Respiratory: Lungs clear to auscultation bilaterally, no wheezes, rales, or rhonchi. Normal effort. Abdomen: Soft, non-tender, non-distended. Normoactive bowel sounds. No hepatosplenomegaly, no masses. MSK: Full range of motion, no joint swelling or deformity. Normal gait. Notable scars on both ankles from previous surgeries involving metal plates. Right arm with limited movement, described as stuck like a claw, secondary to compartment syndrome and fasciotomy. Skin: Warm, dry, intact. No rashes, lesions, or pallor. Varicose veins noted on the lower extremities. Neuro: Alert and oriented x3. Cranial nerves II-XII intact. Strength 5/5 throughout except for right arm with limited function. Sensation intact. Reflexes 2+ symmetric. Normal coordination and gait. Psych: Appropriate mood and affect, though patient admits to alcohol use disorder. Normal judgment and insight. 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 Overweight (BMI 25.0-29.9) E66.3 Insomnia G47.00 Additional Codes RISHABH-7 Assessment Billing - RISHABH-7 Assessment Tool: RISHABH-7 Assessment 64816 ([id number]) PHQ-9 - 24674 - PHQ-9 Billing: Yes ([id number]) Assessment & Plan Assessment & Plan (1) Acute alcohol intoxication: Code(s): F10.929 - Alcohol use, unspecified with intoxication, unspecified Category: Medical (2) Opioid use disorder: Comment: He is doing well Code(s): F11.90 - Opioid use, unspecified, uncomplicated Category: Medical (3) Alcohol use disorder, moderate, dependence: Comment: he denies alcohol use Code(s): F10.20 - Alcohol dependence, uncomplicated Category: Medical (4) Hypertension: Code(s): I10 - Essential (primary) hypertension Category: Medical (5) Right wrist deformity: Code(s): M21.931 - Unspecified acquired deformity of right forearm Category: Medical (6) Overweight (BMI 25.0-29.9): Code(s): E66.3 - Overweight Category: Medical (7) Insomnia: Code(s): G47.00 - Insomnia, unspecified Category: Medical Plan Consent The patient provided verbal consent to have photographs taken of the scars on his arm to be included in his medical chart. Patient was informed and verbally consented to the use of an ambient scribe for clinic note documentation during this visit. Plan 1. Alcohol Use Disorder - Ordered lab work to assess for nutritional deficiencies, including vitamin B12, folate, and thiamine. - Patient instructed to follow up after labs are completed and to attend the next appointment sober for further discussion on management. 2. Sequelae Of Compartment Syndrome, Right Upper Extremity - Plan to refer the patient to occupational and physical therapy to improve function and mobility. 3. Administrative Examination - Will complete and sign paperwork for the patient to continue receiving welch assistance while his disability application is pending. Discussion Notes I discussed with the patient my willingness to be his new primary care provider, which he was agreeable to. We reviewed his significant medical history, including his prior fasciotomy and bilateral ankle surgeries. I explained the plan to obtain lab work to check for nutritional deficiencies such as vitamin B12, folate, and thiamine, given his alcohol use. I instructed him to return for the blood draw and then schedule a follow-up appointment. I emphasized that he must attend the next visit sober so we can have a more productive discussion about his health goals. We discussed initiating referrals for occupational and physical therapy for his right arm to improve function, and he expressed a strong desire for this. Finally, I agreed to complete the necessary paperwork to support his application for welch assistance. Patient Instructions - Return to the clinic tomorrow between 9:00 AM and 4:00 PM to have your blood drawn. - After the labs are done, make an appointment to come back and see me. - You must come to your next appointment sober. - We will get you a referral for occupational and physical therapy for your arm. - If you need anything, please let me know. Medical Decision Making The patient is a 40-year-old male with a complex medical and social history, including homelessness, alcohol use disorder, and significant physical sequelae from past trauma, presenting to [facility] care. His primary functional complaint is the claw-like deformity and limited use of his right arm, a result of a prior compartment syndrome and fasciotomy. He has not had rehabilitative therapy for over a year, so referrals for occupational and physical therapy are medically necessary to assess for any potential for functional improvement. Given his self-reported alcoholism, it is critical to screen for common nutritional deficiencies; therefore, labs for vitamin B12, folate, and thiamine are indicated. A follow-up visit is planned to review these results and further discuss management of his alcoholism, with the clear condition that he presents sober to ensure he can fully participate in shared decision-making. Assisting with his administrative paperwork for welch assistance is a necessary step to address his social determinants of health and support his overall stability. Total Time Statement 45 min Total time spent caring for the patient today includes pre-visit chart review, documentation, review of laboratory and diagnostic imaging results, medication reconciliation, medically necessary evaluation, counseling on diagnoses, care coordination, ordering appropriate tests and medications, review of tests performed by other providers, reporting test results to the patient, and communication with other healthcare providers. Orders: Orders 2 Vitamin B1 06/07/25 Z13.9 - Encounter for screening, unspecified
[2025-06-07 16:37] VITALS: BP 136/91; PULSE 125; RESP 20; TEMP 36.8; O2SAT 95; BMI 29.3
--- OUTSIDE RECORDS SUMMARY | 2025-06-07 19:40 | XMS_ITS | Clinical Summary ---
Author Organization [facility] Facility Address [address] [address] Care Team Providers Care Cocoa Bean Roaster Name Role Phone Unavailable Primary Care Provider [...]
--- OUTSIDE RECORDS SUMMARY | 2025-06-07 19:40 | XMS_ITS | Clinical Summary ---
Author Organization [facility] Address [address] [place] [address] Care Team Providers Care Service Delivery Supervisor Name Role Phone Cheri Rodriguez MD Primary Care Provider Lon marin Surgical History Surgery Date Site/Laterality Comments ANKLE [...] Screening 05/24/2022 Depression Screening 06/21/2024 COVID-19 Vaccine (3 - 2024-2 6 season) 2025 02/23/2021, 01/26/2021 Influenza Vaccine (#1) 2025 RSV Immunization Adult Patients (1 - 1-dose 75+ series) 2062 HIB [...] age to complete this topic Pneumococcal Vaccine: Pediatrics (0 to 5 Years) and At-Risk Patients (6 to 49 Years) Aged Out No longer eligible b ased on patient's age to complete this topic RSV Immunization Patients Under 20 months Aged Out No longer eligible b ased on patient's age to complete this topic Varicella Vaccines Aged Out No longer eligible based on patient's age to complete this topic Care Teams Service Delivery Supervisor Relationship Specialty Start Date End Date Cheri Rodriguez MD PCP - General Internal Medicine 09/13/12
== END 2025-06-07 17:03 | disposition home or self-care (01) ==
LOC: HO.HMCFMS 16:24
PROVIDERS: PCP Internal Medicine; Visit Provider Student in an Organized Health Care Education/Training Program
DX: F10.929 Alcohol use, unspecified with intoxication, unspecified (principal); F11.90 Opioid use, unspecified, uncomplicated; F10.20 Alcohol dependence, uncomplicated; I10 Essential (primary) hypertension; M21.931 Unspecified acquired deformity of right forearm; E66.3 Overweight; G47.00 Insomnia, unspecified

== ENCOUNTER → 2025-06-07 16:24 | Outpatient (BNVA) | payer OTHER, SELFPAY | PROVIDERS: PCP Internal Medicine; Visit Provider Student in an Organized Health Care Education/Training Program | DX: I10 Essential (primary) hypertension (principal); F11.90 Opioid use, unspecified, uncomplicated; F10.220 Alcohol dependence with intoxication, uncomplicated; M21.931 Unspecified acquired deformity of right forearm; E66.3 Overweight; G47.00 Insomnia, unspecified; T79.A11D Traumatic compartment syndrome of right upper extremity, subsequent encounter | CPT/HCPCS: 96127; 99202 ==

== ENCOUNTER 2025-06-13 09:31 | Outpatient (REF) | payer OTHER, SELFPAY ==
--- OUTSIDE RECORDS SUMMARY | 2025-06-13 09:36 | XMS_ITS | Clinical Summary ---
Author Organization [facility] Address [address] [place] [address] Care Team Providers Care Supervisor Logging Name Role Phone Cheri Rodriguez MD Primary [...] age to complete this topic Care Teams Supervisor Logging Relationship Specialty Start Date End Date Cheri Rodriguez MD PCP - General Internal Medicine 09/13/12
--- OUTSIDE RECORDS SUMMARY | 2025-06-13 09:36 | XMS_ITS | Clinical Summary ---
Author Organization [facility] Facility Address [address] [address] Care Team Providers Care Department Secretary Name Role Phone Unavailable Primary Care Provider [...] age to complete this topic [place] [address] [place] [address]
[2025-06-13 14:37] LABS: MANUAL DIFF FLAG NO
[2025-06-13 14:44] LABS: Hematocrit 40.7 % (42.0-52.0); Hemoglobin 13.7 g/dl (14.0-18.0); Imm Gran Abs Auto 0.03 X10*3/uL (0.00-0.03); Imm Gran Pct Auto 0.5 % (0.0-0.4); Lymphocytes Absolute Auto 1.3 X10*3/uL (1.2-4.9); Mean Corpuscular HGB Conc 33.7 g/dl (31.0-36.0); Mean Corpuscular Hemoglobin 28.9 pg (27.0-33.0); Mean Corpuscular Volume 85.9 fL (80.0-98.0); NRBC Abs Auto 0.000 X10*3/uL (0.0-0.012); NRBC Pct Auto 0.0 /100WBC (0.0-0.2); Red Blood Count 4.74 X10*6/uL (4.60-5.80); White Blood Count 5.6 X10*3/uL (4.8-10.8)
[2025-06-13 15:34] LABS: Platelet Count 136 X10*3/uL (160-400)
[2025-06-13 16:45] LABS: Folate 4.0 ng/mL (> or = 4.0); Vitamin B12 593 pg/mL (200-900)
[2025-06-13 17:06] LABS: Alanine Aminotransferase 108 U/L (0-40); Albumin Level 4.7 g/dL (3.5-5.0); Anion Gap 18 (12-20); Aspartate Amino Transferase 161 U/L (5-37); Blood Urea Nitrogen 9 mg/dL (9-16); Calcium 10.1 mg/dL (8.4-10.2); Carbon Dioxide 23 mmol/L (22-29); Chloride 99 mmol/L (96-108); Cholesterol 243 mg/dL (<200); Estimated Glomerular Filt Rate > 60; HDL Cholesterol 90 mg/dL (>40); Magnesium 1.3 mg/dL (1.6-2.6); Potassium 3.7 mmol/L (3.3-5.1); Sodium 136 mmol/L (135-145); Total Protein 7.9 g/dL (6.5-8.0); Triglycerides 132 mg/dL (<150)
[2025-06-13 17:07] LABS: Alkaline Phosphatase 119 U/L (39-117)
[2025-06-15 03:26] LABS: Syphilis Screen Nonreactive (Nonreactive)
[2025-06-15 03:36] LABS: HBS Num1 5.78 mIU/mL (0-7.99); HBsAGNum1 0.29 S/CO (0.00-0.99); HIV Num 1 0.06 S/CO (0.00-0.99); Hepatitis B Surface Antigen Negative (Negative); ~HepC Num1 0.15 S/CO (0.00-0.79); ~Hepatitis B Surface Antibody NONREACTIVE (Nonreactive); ~Hepatitis C Antibody Nonreactive (Nonreactive)
== END 2025-06-13 09:32 | disposition home or self-care (01) ==
LOC: HO.HKASLDS 09:31
PROVIDERS: PCP Student in an Organized Health Care Education/Training Program; Visit Provider Student in an Organized Health Care Education/Training Program
DX: Z12.10 Encounter for screening for malignant neoplasm of intestinal tract, unspecified (principal); Z11.4 Encounter for screening for human immunodeficiency virus [HIV]; Z11.59 Encounter for screening for other viral diseases
CPT/HCPCS: 36415; 80053; 80061; 82607; 82652; 82746; 83735; 84443; 85025; 86706; 86780; 86803; 87340; 87389

== ENCOUNTER 2025-06-15 13:44 | Outpatient (AMB) | payer OTHER, SELFPAY ==
--- OUTSIDE RECORDS SUMMARY | 2025-06-15 13:46 | XMS_ITS | Clinical Summary ---
Author Organization [facility] Address [address] [place] [address] Care Team Providers Care Trust Advisor Name Role Phone Cheri Rodriguez MD Primary [...] age to complete this topic Care Teams Trust Advisor Relationship Specialty Start Date End Date Cheri Rodriguez MD PCP - General Internal Medicine 09/13/12
--- OUTSIDE RECORDS SUMMARY | 2025-06-15 13:46 | XMS_ITS | Clinical Summary ---
Author Organization [facility] Facility Address [address] [address] Care Team Providers Care Forensic Social Worker Name Role Phone Unavailable Primary Care Provider [...]
--- NOTE | 2025-06-15 13:50 | MHC.PC.OV ---
Vital Signs 06/15/25 13:54 Height 5 ft 7 in Weight 192 lb BMI 30.1 BP 140/79 H Blood Pressure Location Lt brachial Position Sitting Respiration 20 Pulse 112 H Pulse Source Pulse Oximeter Temp 98.2 F Temp Source Oral Pulse Oximetry (%) 96 Oxygen Delivery Method Room Air Intake Visit Reasons: f/u - lab review Intake Note: Patient present for lab review. 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 Accompanied by: Self / Same As Patient Allergies No Known Allergies Allergy (Verified 06/15/25 13:54) Medication List - Last Reconciled 06/16/25 by Mahendra Tenorio MD acamprosate 666 mg (2 x 333 mg) PO TID 30 days ascorbic acid (vitamin C) 500 mg PO .QD buprenorphine-naloxone 8-2 mg (Suboxone) 1 film sublingual BID 30 days ferrous sulfate (iron) 325 mg PO DAILY hydroxyzine HCl 25 mg PO TID PRN magnesium oxide (MagOx) 400 mg PO TID pantoprazole 40 mg PO DAILY 90 days thiamine HCl (vitamin B1) 250 mg PO DAILY trazodone 100 mg (2 x 50 mg) PO BEDTIME 30 days Tobacco use date assessed: 06/07/25 Dental Screening Dental Screen Date: 06/07/25 HPI HPI Comments History of Present Illness Details History of Present Illness The patient is a 40 year old male presenting for follow-up on lab results, management of his chronic conditions, and evaluation of a chronic right-hand injury. Alcohol Use Disorder: The patient has an acknowledged alcohol dependency, which he associates with poor sleep and poor nutritional habits, stating he often does not eat until the end of the night. He reports receiving Suboxone, anxiety medication, and medication for alcohol from the comprehensive care unit at the [facility], though he admits to not always taking the alcohol-related medication. He has a history of being in detox centers. Nutritional Deficiencies: The patient reports a history of low magnesium and iron levels, which are attributed to his poor diet secondary to alcohol use. He recalls being given folic acid, thiamine, and magnesium during a prior hospitalization. He has not yet started taking the recently prescribed magnesium oxide. Chronic Right Hand Injury: The patient has a chronic right hand injury that occurred approximately two years ago. 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 He previously received occupational therapy until his insurance coverage ended and was told by other doctors that he would have to learn to adjust as the hand would not return to its previous function. Hernia: The patient reports having a hernia, describing it as being located near his heart. He was advised by Dr. Friend at the [facility] to avoid overworking his arms because of this condition. Hypertension: The patient reports a history of high blood pressure, which has been noted during visits to detox centers and the comprehensive care clinic. Medications: - Suboxone, per comprehensive care unit - Unspecified anxiety medication, per comprehensive care unit - Unspecified medication for alcohol, with poor adherence Social History: - Substance Use: The patient acknowledges having alcohol dependency and has previously been to detox centers. He receives Suboxone from a comprehensive care unit. 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 - Housing: He lost his apartment after his injury and is currently living with his parents. - Nutrition: He reports poor dietary habits, often not eating until late at night, which is associated with his alcohol consumption. - Social Support: His mother provides support and drove him to his appointment. Diagnostic Results: - Labs (prior): Revealed low magnesium, low iron, low platelets, elevated liver enzymes, elevated total cholesterol, and elevated LDL cholesterol. Past Medical History - Alcohol dependence - Right hand injury, approximately 2 years prior - Hernia, hiatal - Hypertension - Anxiety - History of visits to detox centers - Prior hospitalization with administration of IV vitamins Health Maintenance - Discussed management of nutritional deficiencies through supplementation with magnesium, thiamine, and iron. - Educated the patient on the negative impact of alcohol on sleep and liver health. - Patient receives ongoing management for substance use and anxiety from a comprehensive care unit. [facility] Medical History Encounter for screening for malignant neoplasm of intestinal tract, unspecified Alcohol use disorder Compartment syndrome GERD (gastroesophageal reflux disease) Opioid use disorder Left arm pain Insomnia RISHABH (generalized anxiety disorder) Moderate recurrent major depression Chronic GERD Abdominal pain Class 1 obesity with body mass index (BMI) of 31.0 to 31.9 in adult Surgical History History of surgery on wrist History of ankle surgery Family History Father No problems noted. Mother Anxiety and depression Mental health disorder Social History (Updated 06/15/25 @ 13:54 by Kevan Gabriel CMA) Housing: Apartment Alcohol intake: former Patient Tobacco Use Status: Former Tobacco user Tobacco use type: Cigarette e-Cigarette/Vaping Use: Never Used Second Hand Smoke Exposure: No service: No Current occupational status: unemployed Cognitive needs: No Hearing needs: No Vision needs: No Questionnaire Thrive Questionnaire Date Thrive assessed: 06/07/25 RISHABH-7 AMB Questionnaire RISHABH-7 Date RISHABH - 7 assessed: 06/07/25 Source: Developed by Drs. Luiz Darby, Maria D Kate, Robbie Thakkar and colleagues, with an educational karel from [employer]. Review of Systems Narrative Review of Systems - General: Reports fatigue and poor diet. - Neurological: Reports poor sleep quality and waking up every two hours. - Musculoskeletal: Reports inability to fully close his right hand or lift objects with it. 10-point ROS reviewed and negative except as noted in HPI Physical exam (Primary Care) Vital Signs: Last Vital Signs Temp 98.2 F 06/15/25 13:54 Pulse 112 H 06/15/25 13:54 Resp 20 06/15/25 13:54 BP 140/79 H 06/15/25 13:54 Pulse Ox 96 06/15/25 13:54 Oxygen Delivery Method Room Air 06/15/25 13:54 BMI result Body Mass Index 30.1 Tobacco/Smoking Status: Tobacco use Status Tobacco use date assessed 06/07/25 06/15/25 13:56 Patient Tobacco Use Status Former Tobacco user 06/15/25 13:56 Tobacco use type Cigarette 06/15/25 13:56 e-Cigarette/Vaping Use Never Used 06/15/25 13:56 Thrive Assessment: Date of Thrive Assessment Date Thrive assessed 06/07/25 06/15/25 13:56 Narrative Physical Exam General: disheveled, in no acute distress. Vital signs: Blood pressure elevated. HEENT: Normocephalic, atraumatic. PERRLA, EOMI. Conjunctiva clear, sclera anicteric. Oropharynx clear, mucous membranes moist. TMs intact bilaterally. Neck: Supple, no lymphadenopathy, no thyromegaly, no JVD or carotid bruits. Cardiovascular: RRR, normal S1/S2, no murmurs, rubs, or gallops. Peripheral pulses 2+ and symmetric. No edema. Respiratory: Lungs clear to auscultation bilaterally, no wheezes, rales, or rhonchi. Normal effort. Abdomen: Soft, non-tender, non-distended. Normoactive bowel sounds. No hepatosplenomegaly, no masses. MSK: Limited range of motion in the right hand, unable to close fully or lift objects. No joint swelling or deformity. Normal gait. Skin: Warm, dry, intact. No rashes, lesions, or pallor. scars right arm Neuro: Alert and oriented x3. Cranial nerves II-XII intact. Strength 5/5 throughout except in the right hand. Sensation intact. Reflexes 2+ symmetric. Normal coordination and gait. Psych: Appropriate mood and affect. Normal judgment and insight. Alcohol dependency acknowledged. Coding Level of Care Code Est Pt Level 3 (94647) Add On Problem Visit Only Diagnoses Alcohol use disorder, moderate, dependence F10.20 Opioid use disorder F11.90 Abnormal LFTs R79.89 Right wrist deformity M21.931 Nutritional deficiency E63.9 Hypertension I10 Assessment & Plan Assessment & Plan (1) Alcohol use disorder, moderate, dependence: Comment: he denies alcohol use Code(s): F10.20 - Alcohol dependence, uncomplicated Category: Medical (2) Opioid use disorder: Comment: He is doing well Code(s): F11.90 - Opioid use, unspecified, uncomplicated Category: Medical (3) Abnormal LFTs: Code(s): R79.89 - Other specified abnormal findings of blood chemistry Category: Medical (4) Right wrist deformity: Code(s): M21.931 - Unspecified acquired deformity of right forearm Category: Medical (5) Nutritional deficiency: Code(s): E63.9 - Nutritional deficiency, unspecified Category: Medical (6) Hypertension: Code(s): I10 - Essential (primary) hypertension Category: Medical Plan Consent The patient provided verbal consent for an ultrasound of the liver and associated blood work to assess for potential liver damage after the procedures were discussed. Patient was informed and verbally consented to the use of an ambient scribe for clinic note documentation during this visit. Plan 1. Alcohol Use Disorder And Associated Complications - Prescribed magnesium oxide to be taken three times a day due to low levels secondary to alcohol use. - Prescribed thiamine (B1) to be taken once daily for nutritional supplementation. - Prescribed iron with vitamin C to be taken for low iron levels, with specific instructions provided for optimal absorption. - Ordered an ultrasound of the liver and blood work to evaluate for fibrosis or deeper liver damage due to elevated enzymes and low platelets. - Plan to recheck magnesium levels in one to two months. - Educated the patient that alcohol consumption prevents restorative REM sleep, contributing to his fatigue. 2. Chronic Right Hand Injury - Will sign and fax the necessary paperwork to support the patient's application for Social Security benefits due to his work-limiting disability. 3. Hyperlipidemia - Noted elevated total cholesterol and LDL levels; however, the current priority is to assess liver function, so lipid management is deferred. 4. Hypertension - Acknowledged the patient's reported history of elevated blood pressure. No new management was initiated during this visit. Discussion Notes I discussed with the patient that his numerous lab abnormalities, including low magnesium, low iron, low platelets, and elevated liver enzymes, are likely sequelae of his acknowledged alcohol dependency and associated poor nutrition. I explained the plan to replete his nutritional deficiencies by prescribing magnesium oxide three times a day, daily thiamine, and iron with vitamin C, providing specific instructions on how to take the iron for best absorption. I informed him that because of the lab findings concerning for liver damage, I would be ordering a liver ultrasound and specific blood tests to evaluate for fibrosis. We also discussed how alcohol use prevents entry into REM sleep, which is the cause of his chronic fatigue and non-restorative sleep. Regarding his chronic hand injury and inability to work, I agreed to sign and fax the paperwork he provided to support his application for social security benefits. I advised him we would recheck his magnesium levels in approximately one to two months. Patient Instructions - Take one magnesium oxide pill three times per day: one in the morning, one in the afternoon, and one at night. - Take one thiamine (Vitamin B1) pill every day. - For your iron prescription: take the vitamin C pill first, then take the iron pill either 1 hour before you eat or 2 hours after you have eaten. - Please complete the liver ultrasound and blood tests that have been ordered for you. - We will need to repeat your lab work in about 1-2 months to check your magnesium levels. Medical Decision Making The patient is a 40-year-old male with a significant history of alcohol use disorder who presents for follow-up regarding multiple medical issues and abnormal lab findings. His clinical presentation is notable for sequelae of chronic alcohol use, including malnutrition, poor sleep, and debility from a past injury. Lab results reviewed are significant for low magnesium, low iron, thrombocytopenia, elevated liver enzymes, and hyperlipidemia, all consistent with his history. The primary management goals are to mitigate the risks of alcohol-related complications. Therefore, supplementation with thiamine, magnesium, and iron was initiated to address severe nutritional deficiencies. The combination of elevated liver enzymes and thrombocytopenia is highly concerning for advanced liver disease, such as cirrhosis. Consequently, an urgent workup with a liver ultrasound and fibrosis blood panel is warranted to stage the extent of liver damage and guide future management. While hyperlipidemia was also noted, assessment and management of his liver health is the immediate priority. The patient's chronic right hand injury represents a significant functional impairment and barrier to employment, so signing his disability paperwork is clinically appropriate. Total Time Statement 20 min Total time spent caring for the patient today includes pre-visit chart review, documentation, review of laboratory and diagnostic imaging results, medication reconciliation, medically necessary evaluation, counseling on diagnoses, care coordination, ordering appropriate tests and medications, review of tests performed by other providers, reporting test results to the patient, and communication with other healthcare providers. Orders: Orders US abdomen limited 06/15/25 R74.8 - Abnormal levels of other serum enzymes Liver Fibrosis Pnl 06/15/25 F10.20 - Alcohol dependence, uncomplicated, R74.8 - Abnormal levels of other serum enzymes, R79.89 - Other specified abnormal findings of blood chemistry Medications: New ascorbic acid (vitamin C) 500 mg PO .QD 90 caps 0RF ferrous sulfate (iron) 325 mg PO DAILY 90 tabs 0RF thiamine HCl (vitamin B1) 250 mg PO DAILY 90 tabs 0RF Changed From magnesium oxide (MagOx) 400 mg PO BID 30 tabs 1RF To magnesium oxide (MagOx) 400 mg PO TID 30 tabs 1RF
[2025-06-15 13:54] VITALS: BP 140/79; PULSE 112; RESP 20; TEMP 36.8; O2SAT 96; BMI 30.1
== END 2025-06-15 14:20 | disposition home or self-care (01) ==
LOC: HO.HMCFMS 13:44
PROVIDERS: PCP Student in an Organized Health Care Education/Training Program; Visit Provider Student in an Organized Health Care Education/Training Program
DX: F10.20 Alcohol dependence, uncomplicated (principal); F11.90 Opioid use, unspecified, uncomplicated; R79.89 Other specified abnormal findings of blood chemistry; M21.931 Unspecified acquired deformity of right forearm; E63.9 Nutritional deficiency, unspecified; I10 Essential (primary) hypertension

== ENCOUNTER → 2025-06-15 13:44 | Outpatient (BNVA) | payer OTHER, SELFPAY | PROVIDERS: PCP Student in an Organized Health Care Education/Training Program; Visit Provider Student in an Organized Health Care Education/Training Program | DX: F10.20 Alcohol dependence, uncomplicated (principal); E61.2 Magnesium deficiency; E61.1 Iron deficiency; K46.9 Unspecified abdominal hernia without obstruction or gangrene; I10 Essential (primary) hypertension; F11.90 Opioid use, unspecified, uncomplicated; R79.89 Other specified abnormal findings of blood chemistry; M21.931 Unspecified acquired deformity of right forearm; Z79.899 Other long term (current) drug therapy | CPT/HCPCS: 99212 ==